=== PATIENT | male | born 1965 | race Caucasian/White ===

== ENCOUNTER 2017-06-29 12:38 | Inpatient (IN) | payer BC ==
[~2017-06-29] VITALS: Ht 170.2 cm; Wt 100.0 kg
[2017-06-29 12:50] VITALS: Ht 170.2 cm; Wt 100.0 kg
[2017-06-29 12:54] VITALS: TEMP 97.8
--- NOTE | 2017-06-29 12:56 | ERA ---
ER Documentation Chief Complaint Date/Time DATE: 06/29/17 TIME: 12:56 Chief Complaint Cough HPI The patient is a 51-year-old male, presenting with persistent cough for 2-1/2 weeks, associated with dizziness. He was seen by his physician 2 days ago and treated with Zithromax with any improvement. He came to the ER because of worsening cough and vomiting and dizziness. He denies fever, chills, neck pain , chest pain with exertion/vomiting/diaphoresis, dominant pain, dysuria. He complains of bloody stool and today. 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 Medications Home Meds Reported Medications Benzonatate* (Tessalon Perle*) 100 Mg Capsule, 100 MG PO Q8H Y for COUGH, CAP 06/29/17 Lisinopril* (Lisinopril*) 10 Mg Tablet, 10 MG PO DAILY, #30 TAB 06/29/17 Atorvastatin Calcium (Atorvastatin Calcium) 10 Mg Tablet, 10 MG PO QHS, #30 TAB 06/29/17 Warfarin Sodium* (Warfarin Sodium*) 4 Mg Tablet, 4 MG PO DAILY, TAB 06/29/17 Albuterol Sulfate* (Ventolin HFA*) 18 Gm Hfa.aer.ad, 2 PUFF INHALATION Q4H Y for WHEEZING AND SOB, #1 INHALER 06/29/17 Citalopram Hydrobromide* (Citalopram Hydrobromide*) 40 Mg Tablet, 40 MG PO DAILY , #30 TAB 06/29/17 Amlodipine Besylate* (Amlodipine Besylate*) 10 Mg Tablet, 10 MG PO DAILY, #30 TAB 06/29/17 Allergies Allergies: Coded Allergies: morphine (Verified Allergy, Severe, 06/29/17) PMhx/Soc Hx Miscellaneous Medical Probl: 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 Very anxious Head: Atraumatic. Eyes: Normal Conjunctiva. ENT: Normal External Ears, Nose and Mouth. Neck: Full range of motion. No meningismus. Resp: Tachypneic, bilateral expiratory wheezes Cardio: Regular tachycardic Abd: Soft, non distended, normal bowel sounds, non tender. Skin: No petechiae or rashes. Back: No midline or flank tenderness. Ext: No cyanosis, or edema. Neur: Awake and alert. No focal deficit Psych: Normal Mood and Affect. Result Diagram: 06/29/17 1315 06/29/17 1315 Results 24 hrs Laboratory Tests Test 06/29/17 13:15 06/29/17 17:20 White Blood Count 11.510^3/ul Red Blood Count 4.1010^6/ul Hemoglobin 12.7g/dl Hematocrit 38.0% Mean Corpuscular Volume 92.7fl Mean Corpuscular Hemoglobin 31.0pg Mean Corpuscular Hemoglobin Concent 33.4g/dl Red Cell Distribution Width 13.3% Platelet Count 37637^3/UL Mean Platelet Volume 9.6fl Neutrophils % 72.8% Lymphocytes % 17.2% Monocytes % 8.2% Eosinophils % 0.5% Basophils % 0.6% Nucleated Red Blood Cells % 0.0/100WBC Neutrophils # 8.410^3/ul Lymphocytes # 2.010^3/ul Monocytes # 0.910^3/ul Eosinophils # 0.110^3/ul Basophils # 0.110^3/ul Nucleated Red Blood Cells # 0.010^3/ul Prothrombin Time 29.1Sec Prothrombin Time Ratio 2.3 INR International Normalized Ratio 2.71 Activated Partial Thromboplast Time 51.6Sec Urine Color YELLOW Urine Clarity CLOUDY Urine pH 5.0 Urine Specific [place] 1.031 Urine Ketones TRACEmg/dL Urine Nitrite NEGATIVEmg/dL Urine Bilirubin NEGATIVEmg/dL Urine Urobilinogen NEGATIVEmg/dL Urine Leukocyte Esterase 2+[place]/ul Urine Microscopic RBC 1/HPF Urine Microscopic WBC 7/HPF Urine Bacteria FEW/HPF Urine Hyaline Casts FEW/HPF Urine Mucus MODERATE/HPF Urine Hemoglobin 2+mg/dL Urine Glucose 1+mg/dL Urine Total Protein 2+mg/dl Sodium Level 140mmol/L Potassium Level 4.4mmol/L Chloride Level 108mmol/L Carbon Dioxide Level 25mmol/L Anion Gap 11 Blood Urea Nitrogen 28mg/dl Creatinine 0.79mg/dl Glucose Level 193mg/dl Lactic Acid Level 2.4mmol/L 1.3mmol/L Calcium Level 8.3mg/dl Total Bilirubin 0.3mg/dl Direct Bilirubin 0.00mg/dl Indirect Bilirubin 0.3mg/dl Aspartate Amino Transf (AST/SGOT) 22IU/L Alanine Aminotransferase (ALT/SGPT) 37IU/L Alkaline Phosphatase 68IU/L Troponin I < 0.012ng/ml 0.040ng/ml Total Protein 6.4g/dl Albumin 3.5g/dl Globulin 2.90g/dl Albumin/Globulin Ratio 1.20 Urine Opiates Screen Positive Urine Barbiturates Negative Urine Amphetamines Screen Negative Urine Benzodiazepines Screen Negative Urine Cocaine Screen Negative Urine Cannabinoids Negative Ethyl Alcohol Level < 10.0mg/dl C-Reactive Protein 1.6mg/dl B-Type Natriuretic Peptide 40PG/ML Thyroid Stimulating Hormone (TSH) 0.145MIU/L Free Thyroxine 1.08ng/dl Current Medications Medications (Trade) Dose Ordered Sig/Vicenta Route PRN Reason Start Time Stop Time Status Last Admin Dose Admin Levalbuterol (Xopenex Neb) 1.25 mg ONCE ONCE N 06/29/17 13:30 06/29/17 13:31 DC 06/29/17 13:38 Ipratropium [place] (Atrovent 0.02% (Neb)) 0.5 mg ONCE ONCE N 06/29/17 13:30 06/29/17 13:31 DC 06/29/17 13:38 Promethazine HCl/ Codeine (Phenergan/ Codeine) 10 ml ONCE ONCE PO 06/29/17 13:30 06/29/17 13:31 DC 06/29/17 14:05 Ondansetron HCl (Zofran Inj) 4 mg ONCE STAT IV 06/29/17 13:14 06/29/17 13:16 DC 06/29/17 13:21 Lorazepam 1 mg 1 mg ONCE ONCE IV 06/29/17 13:30 06/29/17 13:31 DC 06/29/17 13:21 Sodium Chloride 1,000 ml @ 1,000 mls/hr Q1H ONCE IV 06/29/17 14:00 06/29/17 14:06 DC 06/29/17 14:05 Sodium Chloride 3,100 ml @ 3,100 mls/hr BOLUS X1 ONCE IV 06/29/17 14:30 06/29/17 15:29 DC 06/29/17 14:34 Levofloxacin/ Dextrose (Levaquin 750 Mg/ D5W 150 ml (Pmx)) 150 ml @ 100 mls/hr ONCE ONCE IVPB 06/29/17 15:00 06/29/17 16:29 DC 06/29/17 15:02 Ketorolac Tromethamine 30 mg 30 mg ONCE STAT IV 06/29/17 16:25 06/29/17 16:28 DC 06/29/17 16:37 Adenosine (Adenosine) 2 ml @ ud STK-MED ONCE .ROUTE 06/29/17 17:13 06/29/17 17:14 DC IV Flush 10 ml 10 ml STK-MED ONCE .ROUTE 06/29/17 17:28 06/29/17 17:29 DC 06/29/17 17:54 Sodium Chloride (NS) 100 ml @ ud STK-MED ONCE .ROUTE 06/29/17 17:28 06/29/17 17:29 DC 06/29/17 17:54 Iodixanol (Visipaque Locm) 100 ml STK-MED ONCE .ROUTE 06/29/17 17:28 06/29/17 17:29 DC 06/29/17 17:55 Hydromorphone HCl (Dilaudid) 1 mg STK-MED ONCE .ROUTE 06/29/17 17:34 06/29/17 17:35 DC Hydromorphone HCl (Dilaudid) 1 mg ONCE STAT IV 06/29/17 17:35 06/29/17 17:55 DC 06/29/17 18:05 Amlodipine Besylate (Norvasc) 10 mg DAILY PO 06/30/17 09:00 Atorvastatin Calcium (Lipitor) 10 mg QHS PO 06/29/17 21:00 Citalopram Hydrobromide (Celexa) 40 mg DAILY PO 06/30/17 09:00 Lisinopril (Zestril) 10 mg DAILY PO 06/30/17 09:00 Warfarin Sodium (Coumadin) 4 mg DAILY PO 06/30/17 09:00 Adenosine (Adenosine) 6 mg ONCE ONCE IV 06/29/17 18:30 06/29/17 18:31 DC 06/29/17 18:28 Metoprolol Tartrate (Lopressor) 5 mg ONCE ONCE IV 06/29/17 18:30 06/29/17 18:31 DC 06/29/17 18:40 Metoprolol Tartrate (Lopressor) 25 mg BID PO 06/29/17 21:00 IV Flush (NS 3 ml) 3 ml PER PROTOCOL IV 06/29/17 18:30 Ibuprofen (Motrin) 600 mg Q6H PRN PO PAIN LEVEL 1-3 06/29/17 18:30 Oxycodone/ Acetaminophen (Percocet (5/ 325)) 1 tab Q6H PRN PO MODERATE PAIN LEVEL 4-6 06/29/17 18:30 Hydromorphone HCl (Dilaudid) 0.5 mg Q4H PRN IV SEVERE PAIN LEVEL 7-10 06/29/17 18:30 06/29/17 18:41 Miscellaneous Information (* Miscellaneous Pharmacy Order) Discontinue current oral sulfonylur... ONCE ONCE XX 06/29/17 18:30 06/29/17 18:30 DC Diagnostic Test (Pha) (Accu-Chek) 1 ea XX 06/30/17 02:00 Insulin Glargine (Lantus) 8 unit DAILY@08 [place] 06/30/17 08:00 Miscellaneous Information (* Miscellaneous Pharmacy Order) HYPOGLYCEMIA PROTOCOL w... ONCE ONCE XX 06/29/17 18:30 06/29/17 18:30 DC Insulin Aspart (Novolog Insulin Pen) NOVOLOG *MILD* ALGORITHM WITH MEALS BEDTIME SC 06/29/17 21:00 Miscellaneous Information (* Miscellaneous Pharmacy Order) Discontinue all previ... ONCE ONCE XX 06/29/17 18:30 06/29/17 18:30 DC Miscellaneous Information 1 ea NOTE XX 06/29/17 18:30 Glucose (Glutose) 15 gm Q15M PRN PO DECREASED GLUCOSE 06/29/17 18:30 Glucose (Glutose) 22.5 gm Q15M PRN PO DECREASED GLUCOSE 06/29/17 18:30 Dextrose (D50w Syringe) 25 ml Q15M PRN IV DECREASED GLUCOSE 06/29/17 18:30 Dextrose (D50w Syringe) 50 ml Q15M PRN IV DECREASED GLUCOSE 06/29/17 18:30 Glucagon (Glucagen) 1 mg Q15M PRN IM DECREASED GLUCOSE 06/29/17 18:30 Glucose (Glutose) 15 gm Q15M PRN BUCCAL DECREASED GLUCOSE 06/29/17 18:30 Procedures/MDM EKG: Read by emergency physician Rate/Rhythm: Sinus tachycardia 160 beats/min QRS, ST, T-waves: No ST elevation, no T inversion, RWA Impression: Abnormal EKG [place] [id number] Radiology Main Line: [phone] DIAGNOSTIC IMAGING REPORT Patient: TYLER RUSSELL : 1965 Age: 51 Sex: M MR #: [id number] DOS: 06/29/17 1314 Ordering MD: SYDNEY ROBISON MD Location: E/R Room/Bed: PROCEDURE: Chest Radiograph. CLINICAL INDICATION: Sepsis TECHNIQUE: Single frontal chest radiograph. COMPARISON: None available FINDINGS: The cardiomediastinal silhouette is within normal limits. No infiltrate or effusion is seen. The bones are intact. IMPRESSION: 1. Unremarkable chest radiograph. RPTAT: GG .Smooth Bowers MD, Date Time Electronically viewed and signed by .Smooth Bowers MD, on 2016 13:47 .B/ CC: SYDNEY ROBISON MD MEDICAL MAKING DECISION: The patient is a 51-year-old male, presenting with acute severe sepsis, acute cystitis, acute bronchitis, hematochezia, acute anxiety. He was treated with Xopenex 1.25 mg, Atrovent 0.5 mg nebulizer for wheezing, with codeine 10 mL p.o. for persistent dry cough, and Zofran 4 mg IV for nausea, Ativan 1 mg IV for acute anxiety,NS 30 mg IV and Levaquin IV for acute severe sepsis Admit MDM: Patient's infectious symptoms have not stabilized and the patient is at risk of rapid decompensation. The patient will be admitted for careful hydration, antibiotic therapy, and infectious source control. Severe Sepsis criteria: Infectious source: UTI End organ damage indicated by: Lactate > 2.0 mmol/L Sepsis Management: Time of recognition of severe sepsis/septic shock:1500 Within 3 hours of recognition: Blood cultures x 2 before broad-spectrum antibiotics: Yes 30 ml/kg NS bolus completed Initial lactate 2.4 Repeat lactate pending Critical Care: Critical care time 35 minutes excluding billable procedure Emergent fluid management while maintaining close respiratory support. Provision of immediate and broad-spectrum antibiotic therapy. Simultaneous assessment for possible sources in order to direct targeted therapy. Consideration for invasive and chemical support to prevent cardiopulmonary collapse. Septic Shock Assessment: Any lactic acid > 4.0 no Persistent hypotension (SBP < 90 or 40 mmHg drop, MAP < 65) despite 30 mL/kg IV fluid bolusno Departure Diagnosis: Primary Impression: Severe sepsis Additional Impressions: UTI (urinary tract infection) Bronchitis Hematochezia Anxiety Anemia Tachyarrhythmia Condition: Stable Comments I discussed the findings with the patient. I discussed the patient with the on- call hospitalist Dr. Eli at 4:20 PM who was made aware of the lab, the treatment, the patient condition. The patient is admitted to SYDNEY Bee MD Jun 29, 2017 12:56
[2017-06-29] MEDS ORDERED: ONDANSETRON 4 MG INJ IV STA (13:14)
[2017-06-29] MEDS ORDERED: IPRATROPIUM (NEB) 0.5 MG/2.5 ML AMP HHN ONE (13:30)
[2017-06-29] MEDS ORDERED: PROMETHAZINE/CODEINE 5ML CUP PO ONE (13:30)
[2017-06-29] MEDS ORDERED: LEVALBUTEROL (NEB) 1.25 MG/0.5 ML AMP HHN ONE (13:30)
[2017-06-29] MEDS ORDERED: LORAZEPAM 2 MG INJ IV ONE (13:30)
[2017-06-29 13:33] LABS: BASOPHIL # 0.1 10^3/ul (0.0-0.1); BASOPHILS % 0.6 % (0.0-2.0); EOSINOPHILS # 0.1 10^3/ul (0.0-0.5); EOSINOPHILS % 0.5 % (0.0-7.0); HEMOGLOBIN 12.7 g/dl (14.0-18.0); LYMPHOCYTES % 17.2 % (15.0-51.0); MEAN CORPUSCULAR HGB CONC 33.4 g/dl (32.0-37.0); MEAN CORPUSCULAR VOLUME 92.7 fl (82.0-101.0); MEAN PLATELET VOLUME 9.6 fl (7.4-10.4); MONOCYTE # 0.9 10^3/ul (0.3-0.9); MONOCYTES % 8.2 % (0.0-11.0); NEUTROPHIL # 8.4 10^3/ul (1.6-7.5); NEUTROPHILS % 72.8 % (39.0-77.0); PLATELET COUNT 416 10^3/UL (140-415); RED CELL DISTRIBUTION WIDTH 13.3 % (11.5-14.5); WHITE BLOOD COUNT 11.5 10^3/ul (4.8-10.8)
--- NOTE | 2017-06-29 13:47 | RADRPT ---
PROCEDURE: Chest Radiograph. CLINICAL INDICATION: Sepsis TECHNIQUE: Single frontal chest radiograph. COMPARISON: None available FINDINGS: The cardiomediastinal silhouette is within normal limits. No infiltrate or effusion is seen. Th e bones are intact. IMPRESSION: 1. Unremarkable chest radiograph. RPTAT: GG .Smooth Bowers MD, Date Time Electronically viewed and signed by .Smooth Bowers MD, on 06/29/2017 13:47 .B/
[2017-06-29 13:48] LABS: INR 2.71; PROTIME 29.1 Sec (12.2-14.2); PT RATIO 2.3
[2017-06-29 13:49] LABS: PARTIAL THROMBOPLASTIN TIME 51.6 Sec (25.0-35.0)
[2017-06-29] MEDS ORDERED: AMLO-147 PO (13:52)
[2017-06-29] MEDS ORDERED: CITA-104 PO (13:52)
[2017-06-29 13:53] LABS: ALANINE AMINOTRANSFERASE 37 IU/L (13-69); ALBUMIN 3.5 g/dl (3.3-4.9); ALKALINE PHOSPHATASE 68 IU/L (42-121); ANION GAP 11 (8-16); ASPARTATE AMINO TRANSFERASE 22 IU/L (15-46); BILIRUBIN,INDIRECT 0.3 mg/dl (0-1.1); BILIRUBIN,TOTAL 0.3 mg/dl (0.2-1.3); BLOOD UREA NITROGEN 28 mg/dl (7-20); CALCIUM 8.3 mg/dl (8.4-10.2); CARBON DIOXIDE 25 mmol/L (21-31); CHLORIDE 108 mmol/L (97-110); CREATININE 0.79 mg/dl (0.61-1.24); GLUCOSE 193 mg/dl (70-220); POTASSIUM 4.4 mmol/L (3.5-5.1); SODIUM 140 mmol/L (135-144); TOTAL PROTEIN 6.4 g/dl (6.1-8.1)
[2017-06-29] MEDS ORDERED: ATOR10TA65 PO (13:53)
[2017-06-29] MEDS ORDERED: ALBU18HF INHALATION (13:53)
[2017-06-29] MEDS ORDERED: WARF4TAB52 PO (13:53)
[2017-06-29] MEDS ORDERED: BENZ100C70 PO (13:54)
[2017-06-29] MEDS ORDERED: LISI10TA2 PO (13:54)
[2017-06-29] MEDS ORDERED: SOD CHLORIDE 0.9% 1,000 ML IV ONE (14:00)
[2017-06-29 14:08] LABS: BARBITURATES Negative (NEGATIVE); BENZODIAZEPINES Negative (NEGATIVE); CANNABINOIDS Negative (NEGATIVE); COCAINE Negative (NEGATIVE); OPIATES Positive (NEGATIVE); TROPONIN-I < 0.012 ng/ml (0.00-0.12)
[2017-06-29 14:29] LABS: ADD UMIC YES; UR ASCORBIC ACID 40 mg/dL (NEGATIVE); UR BACTERIA FEW /HPF (NONE SEEN); UR BILIRUBIN (Dip) NEGATIVE (NEGATIVE); UR BLOOD (Dip) 2+ mg/dL (NEGATIVE); UR CLARITY CLOUDY (CLEAR); UR COLOR YELLOW (YELLOW); UR GLUCOSE (Dip) 1+ mg/dL (NEGATIVE); UR KETONES (Dip) TRACE mg/dL (NEGATIVE); UR LEUKOCYTE ESTERASE (Dip) 2+ Leu/ul (NEGATIVE); UR MUCUS MODERATE /HPF (NONE SEEN); UR NITRITE (Dip) NEGATIVE (NEGATIVE); UR RBC 1 /HPF (0-5); UR SPECIFIC GRAVITY (Dip) 1.031 (1.003-1.030); UR TOTAL PROTEIN (Dip) 2+ mg/dl (NEGATIVE); UR UROBILINOGEN (Dip) NEGATIVE (NEGATIVE)
[2017-06-29] MEDS ORDERED: SOD CHLORIDE 0.9% 3,100 ML IV ONE (14:30)
[2017-06-29] MEDS ORDERED: LEVOFLOXACIN 750MG/D5W (PMX) 150 ML IVPB ONE (15:00)
[2017-06-29] MEDS ORDERED: KETOROLAC 30 MG INJ IV STA (16:25)
[2017-06-29] MEDS ORDERED: ADENOSINE 2 ML ONE (17:13)
[2017-06-29] MEDS ORDERED: IODIXANOL LOCM 100 ML BTL ONE (17:28)
[2017-06-29] MEDS ORDERED: SOD CHLORIDE 0.9% 100 ML ONE (17:28)
[2017-06-29] MEDS ORDERED: HYDROmorphONE 1 MG/ML SYG ONE (17:34)
[2017-06-29] MEDS ORDERED: HYDROmorphONE 1 MG/ML SYG IV STA (17:35)
--- NOTE | 2017-06-29 18:04 | RADRPT ---
PROCEDURE: CTA Chest with IV contrast. CLINICAL INDICATION: Chest pain and shortness of breath. TECHNIQUE: The study was performed utilizing a multidetector CT scanner. Direct spiral axial secti ons were obtained from the thoracic inlet through the upper abdomen before and after the injection o f 80 cc Isovue 370 intravenous contrast material and reformatted at 1.25 mm. 3D, coronal and sagitta l reformations were obtained. The images were reviewed on a PACS workstation. Automated exposure con trol was utilized. DLP = 779.0 mGy-cm.CTDiVol = 7.0, 7.0, 42.3, 20.0 mGy. One or more of the following post reduction techniques were used: - Automated exposure control. - Adjustment of the mA and/or Kv according to patient's size. - Use of iterative reconstruction technique COMPARISON: No prior studies are available for comparison. FINDINGS: No pulmonary arterial filling defects to indicate pulmonary embolus are identified. Heart size is within normal limits. No hilar or mediastinal lymphadenopathy is identified. The vis ualized portions of the inferior thyroid appear unremarkable. Minimal calcified atherosclerosis is n oted in the arch of the aorta. The thoracic esophagus appears normal. The lungs are clear. The visualized organs of the superior abdomen are unremarkable. Mild to moderate degenerative changes are seen in the spine. The subcutaneous and muscular soft tis sues surrounding the chest are unremarkable. IMPRESSION: No visualized pulmonary embolus. Clear lungs. Degenerative changes in the spine and calcified atherosclerosis in the arch of the aorta. RPTAT: AA .Aaron Robins MD, Date Time Electronically viewed and signed by .Aaron Robins MD, MD on 06/29/2017 18:03 .P/
--- NOTE | 2017-06-29 18:13 | HP ---
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 Found to have profound tachycardia, appears to be A Flutter reverting to SR vs ectopic rhtyhm - Symptoms concenring for recurrence of PE, will perform CT-A to assess. Dissection also a possibility which will be evaluated - Unlikely this is coronary ischemia - Hyperthyroidism is also a possibility, will check TSH/T4 - Perhaps all secondary to arrhythmia, will give cautious beta kelli and consult cardiology for management of possible A Flutter and rhythm strip review - Lactic acidosis appreciated, though no signs of hypoperfusion otherwise, I don 't think this is sepsis, will hold further abx for now. Bacterial pneumonia unlikely - TTE - TB possible, CT will be instructive Hypertension: - Control w home meds and BB Further diagnostic workup and management pending clinical course Problems: HPI/ROS Admit Date/Time Admit Date/Time Hx of Present Illness 51 yo male h/o HTN, Protein S deficiency leading to 2 PEs on coumadin, presenting with 2 weeks of illness. Patient felt completely well until about two weeks ago. Developed nasal congestion then URI symptoms, others aroudn him also sick. Symptoms have progressed. Has developed very bothersome cough wtihout much production, SOB, palpitations, disabling chest pressure which seems constant. Also diarrhea, nausa and vomiting. Has been to a couple EDs for these sypmtosm already, given Z pack and IM abx already, symptoms have worsened. Came here today for evaluation fo same symptoms as not improving. Foudn to be markedly tachycaric and anxious, given ativan for agitation Seen by me, felt w HR in 140s resting, unclear if SVT. Given 6 adenosine w/o change. Still complaiing of chest pressure and SOB at rest. PMH/Family/Social Past Medical History Hypertension Obestiy Pulmonary Embolisms 5 years ago, on lifelong coumadin given protein S defiicency Social History Alcohol Use: none Smoking Status: Never smoker Drug Use: none Exam/Review of Systems Vital Signs Vitals Vital Signs Date Time Temp Pulse Resp B/P Pulse Ox O2 Delivery O2 Flow Rate FiO2 06/29/17 13:39 4.0 06/29/17 13:39 148 20 96 Nasal Cannula 06/29/17 13:08 114/82 06/29/17 12:54 97.8 Exam Exam Appears uncomfortable, but calm, AOx3 Tachy, regular, no m/r/g, no chest wall tenderness, flat neck veins Lungs with perhpas mild rhonchi but generally clear, nonlabored Obese belly, soft nt nd Ext wihtout edema Labs Result Diagram: 06/29/17 1315 06/29/17 1315 MCKENZIE BONILLA MD Jun 29, 2017 18:05
[2017-06-29 18:16] LABS: C-REACTIVE PROTEIN 1.6 mg/dl (0.0-0.9)
[2017-06-29] MEDS ORDERED: GLUCOSE GEL 15 GRAM TUBE PO PRN ×2 (18:30)
[2017-06-29] MEDS ORDERED: GLUCOSE GEL 15 GRAM TUBE BUCCAL PRN (18:30)
[2017-06-29] MEDS ORDERED: IBUPROFEN 600 MG TAB PO PRN (18:30)
[2017-06-29] MEDS ORDERED: GLUCAGON 1 MG INJ IM PRN (18:30)
[2017-06-29] MEDS ORDERED: NACL 0.9% 3 ML SYG IV SCH (18:30)
[2017-06-29] MEDS ORDERED: METOPROLOL 5 MG INJ IV ONE (18:30)
[2017-06-29] MEDS ORDERED: DEXTROSE 50% 50 ML SYRINGE IV PRN ×2 (18:30)
[2017-06-29] MEDS ORDERED: ADENOSINE 6 MG INJ IV ONE (18:30)
[2017-06-29] MEDS: HYDROmorphONE 1 MG/ML SYG IV PRN (18:41)
[2017-06-29] MEDS ORDERED: METOPROLOL 25 MG TAB PO SCH (21:00)
[2017-06-29 22:01] VITALS: PULSE 125
[2017-06-29] MEDS: ATORVASTATIN 10 MG TAB PO SCH (22:11)
[2017-06-29] MEDS: OXYCODONE/ACETAMINOPHEN (5/325) TAB PO PRN (22:12)
[2017-06-29] MEDS: INSULIN ASPART [NOVOLOG] 3 ML PEN SC SCH (22:19)
[2017-06-29 22:40] VITALS: PULSE 157
[2017-06-29 23:46] VITALS: PULSE 151
[2017-06-29 23:55] VITALS: BP 133/83; RESP 20
[2017-06-30] VITALS (25 sets, daily range): BP systolic 98–217; BP diastolic 63–165; PULSE 105–144; RESP 11–29
[2017-06-30] MEDS: HYDROmorphONE 1 MG/ML SYG IV PRN ×5 (00:47→23:41)
[2017-06-30] MEDS: ACCU-CHEK XX SCH (02:00)
[2017-06-30] MEDS ORDERED: NITROGLYCERIN (SL) 0.4 MG TAB SL PRN (03:00)
[2017-06-30] MEDS ORDERED: NITROGLYCERIN (SL) 0.4 MG TAB ONE (03:00)
[2017-06-30] MEDS ORDERED: HYDROmorphONE 1 MG/ML SYG IV ONE (03:13)
[2017-06-30] MEDS ORDERED: DILTIAZEM 25 MG INJ IV ONE (03:30)
[2017-06-30] MEDS ORDERED: LOPERAMIDE 2 MG CAP PO ONE (03:30)
[2017-06-30] MEDS: ONDANSETRON 4 MG INJ IV PRN (03:47)
[2017-06-30 04:05] LABS: CALCIUM 7.9 mg/dl (8.4-10.2); CREATININE 0.98 mg/dl (0.61-1.24); POTASSIUM 3.8 mmol/L (3.5-5.1)
[2017-06-30 04:19] LABS: ABNORMAL IP MESSAGE 1; BASOPHIL # 0.1 10^3/ul (0.0-0.1); BASOPHILS % 0.4 % (0.0-2.0); EOSINOPHILS # 0.1 10^3/ul (0.0-0.5); EOSINOPHILS % 0.4 % (0.0-7.0); HEMATOCRIT 20.3 % (42.0-52.0); LYMPHOCYTES # 3.8 10^3/ul (0.8-2.9); LYMPHOCYTES % 31.7 % (15.0-51.0); MEAN CORPUSCULAR HEMOGLOBIN 30.9 pg (29.0-33.0); MEAN CORPUSCULAR VOLUME 93.5 fl (82.0-101.0); MEAN PLATELET VOLUME 9.8 fl (7.4-10.4); MONOCYTE # 1.2 10^3/ul (0.3-0.9); MONOCYTES % 9.7 % (0.0-11.0); NEUTROPHIL # 6.8 10^3/ul (1.6-7.5); NEUTROPHILS % 56.9 % (39.0-77.0); PLATELET COUNT 312 10^3/UL (140-415); POSITIVE DIFF @See below; RED BLOOD COUNT 2.17 10^6/ul (4.70-6.10); RED CELL DISTRIBUTION WIDTH 13.5 % (11.5-14.5)
[2017-06-30 04:32] LABS: HEMOGLOBIN 6.7 g/dl (14.0-18.0)
[2017-06-30] MEDS ORDERED: PANTOPRAZOLE IV 80 MG in SOD CHLORIDE 0.9% 100 ML IVPB ONE (05:30)
--- NOTE | 2017-06-30 05:31 | EN ---
Date/Time of Note Date/Time of Note DATE: 06/30/17 TIME: 05:23 Event Note Medicine Medicine Event Note Called to the bedside by the nurse for repeated episodes of bright red blood per rectum. Patient diaphoretic and tachycardic. Experiencing SOB when moving from bed to bed side toilet. Patient appears pale. HGB on admission on 06/29 was 12.7 and at 06/30/17 at 3 am it is 6.7. INR 2.7 Vitals: HR: 130 RR: 22 BP: 132/64 General: patient appears pale and diaphoretic Heent: mucous membranes dry CVS: sinus tachycardia, no murmurs lungs: clear to ausculation bilaterally, no rales Rectal exam: deferred, but bed side toilet with bright red blood Neuro: alert and oriented x 3, normal mental status Hgb: 6.7 now from 12.7 yesterday, INR 2.7 a/p: 1. Acute GI bleed: likely lower GI bleed. Stat type and screen, 2 units PRBC, 2 units FFP, nuclear bleeding scan. GI consulted, Dr. Mireles aware. Pending transfer to ICU. Greater than 35 mins of critical care time was spent on the care and management of this patient. MELANIE AHUMADA Jun 30, 2017 05:30
[2017-06-30] MEDS: PANTOPRAZOLE IV 80 MG in SOD CHLORIDE 0.9% 100 ML IV SCH ×3 (05:45→15:45)
[2017-06-30] MEDS ORDERED: EPINEPHrine 0.1 MG/ML SYG ONE (07:00)
[2017-06-30] MEDS ORDERED: SUCCINYLCHOLINE CHLORIDE 100 MG/5 ML SYG IV ONE (07:00)
[2017-06-30] MEDS: INSULIN ASPART [NOVOLOG] 3 ML PEN SC SCH ×4 (07:55→21:00)
[2017-06-30] MEDS: INSULIN GLARGINE [LANtus] 3 ML PEN SC SCH (08:00)
[2017-06-30 08:29] LABS: ANISOCYTOSIS 2+ (0-0); BASOPHILS % (M) 1 % (0-2); ERYTHROBLAST% (NRBC) (M) 1 % (0-0); GIANT THROMBO% (M) 1 % (0-0); MICROCYTOSIS 2+ (0-0); MONOCYTES % (M) 6 % (0-11); PLATELET ESTIMATE NORMAL
[2017-06-30] MEDS ORDERED: HUMAN PROTHROMBIN COMPLX IV STA (08:47)
[2017-06-30] MEDS ORDERED: EVAC CONTAINER IV STA (08:47)
[2017-06-30] MEDS ORDERED: CITALOPRAM 20 MG TAB PO SCH (09:00)
[2017-06-30] MEDS ORDERED: LISINOPRIL 10 MG TAB PO SCH (09:00)
[2017-06-30] MEDS ORDERED: AMLODIPINE 10 MG TAB PO SCH (09:00)
[2017-06-30] MEDS ORDERED: PHYTONADIONE 10 MG in DEXTROSE 5% 50 ML IVPB ONE (10:00)
--- NOTE | 2017-06-30 13:08 | RADRPT ---
Echocardiogram Report Patient Name: TYLER RUSSELL Gender: Male Date: 1965 Study Date: 30-Jun-2017 Manager Printing: [facility] Location: 512-A Ref. Physician: MCKENZIE BONILLA Quality: Adequate Procedures: Transthoracic echocardiogram with complete 2D, M-Mode, and doppler examination. Indications: Arrythmia. 2D/M Mode Doppler Measurement Value Normal Ranges Measurement Value Normal Ranges LVIDd 2D 4.5 3.5 - 5.6 cm AV Peak Mark 1.6 m/sec LVIDs 2D 2.4 2.1 - 4.1 cm AV Peak PG 10.0 mmHg FS 2D 46.7 % LVOT Peak Mark 1.5 m/sec LVPWd 2D 1.3 0.6 - 1.1 cm LVOT Peak PG 8.0 mmHg IVSd 2D 1.3 0.6 - 1.1 cm MV E Peak Mark 1.1 m/sec IVS/LVPW 2D 1.0 MV Decel Time 81 msec AoR Diam 2D 2.8 2.0 - 3.7 cm LA/Ao 2D 1 0 - 1 EDV 2D 92.3 cm3 ESV 2D 14.0 cm3 LA Dimen 2D 3.7 2.3 - 4.0 cm Findings Left Ventricle: Hyperdynamic left ventricular systolic function. Normal left ventricular cavity size. Mild concentric left ventricular hypertrophy. Ejection fraction is visually estimated at 70 %. Abnormal Diastolic Function. Right Ventricle: Normal right ventricular size. Normal right ventricular systolic function. Left Atrium: The left atrium is normal in size. Right Atrium: The right atrium is normal in size. Mitral Valve: Mild mitral leaflet calcification. Mild mitral annular calcification. Trace mitral regurgitation. Aortic Valve: Normal appearance of the aortic valve. No significant aortic stenosis or insufficiency. Tricuspid Valve: Normal appearance of the tricuspid valve. Unable to obtain RVSP due to minimal presence of tricuspid regurgitation. There is trace tricuspid regurgitation. Pulmonic Valve: Pulmonic valve not well visualized. There is trace pulmonic regurgitation. Pericardium: Normal pericardium with no significant pericardial effusion. Aorta: Normal aortic root. IVC: Normal size and normal respiratory collapse consistent with normal right atrial pressure. Conclusions 1.The left ventricle is normal in size with hyperdynamic systolic function. 2.Estimated left ventricular ejection fraction of >70%. 3.Mild concentric left ventricular hypertrophy. Electronically Signed By: Blake Betts 30-Jun-2017 13:07:46 -0700 Patient Name: TYLER RUSSELL Study Date: 30-Jun-2017 [id number]
--- NOTE | 2017-06-30 13:41 | CONS ---
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 - current chest CTA negative Recommendations: -echocardiogram showed hyperdynamic left ventricle with ejection fraction >70% -FFP, vitamin K, pRBC transfusions -hold antihypertensive medications, resume as needed when gastrointestinal bleeding stabilized -resume on atorvastatin when tolerating oral medications Problems: Consultation Date/Type/Reason Admit Date/Time Type of Consultation: Cardiology Reason for Consultation tachycardia Hx of Present Illness The patient is a 51 year-old male who presented with numerous complaints including nausea, vomiting, chest pain, lightheadedness, and diaphoresis. Two weeks ago, he developed respiratory congestion and cough. He was treated as an outpatient with antibiotics for a presumed upper respiratory infection without improvement of his symptoms. In the hospital, he is noted to have a low grade fever to 99.8 F, tachycardic, elevated WBC of 11.5, and elevated lactic acid of 2.4. Urinalysis was abnormal, suggestive of a urinary tract infection. On the day of presentation, he developed hematochezia and has continued to have several episodes of hematochezia while in the hospital. His hemoglobin was 12.7 on presentation, but dropped to 6.7 today. He is on chronic warfarin therapy for protein S deficiency and two prior episodes of pulmonary embolisms. His INR was 2.7 on presentation. With regards to his chest pain, he describes intermittent nonexertional chest pressure that can last for several hours. He denies a prior history of heart disease. EKGs showed sinus tachycardia without acute ischemic changes. Troponins have been negative x 3. Echocardiogram showed a hyperdynamic left ventricular with an ejection fraction of >70%. Chest CTA showed no evidence of pulmonary embolism and clear lungs. 14 point review of systems negative other than per HPI. Past Medical History Hypertension Dyslipidemia Protein S deficiency History of pulmonary embolism x 2 Past Surgical History Past Surgical Hx: no surgical history Family History Significant Family History: diabetes Social History Alcohol Use: none Smoking Status: Former smoker Drug Use: none Exam/Review of Systems Vital Signs Vitals Vital Signs Date Time Temp Pulse Resp B/P Pulse Ox O2 Delivery O2 Flow Rate FiO2 06/30/17 08:17 121 06/30/17 07:51 98.4 16 109/66 96 06/29/17 23:00 Nasal Cannula 2.0 Intake and Output 06/29/17 06/29/17 06/30/17 15:00 23:00 07:00 Intake Total 1800 ml Output Total 5500 ml Balance -3700 ml Exam Constitutional: alert, obese Psych: nl mood/affect, no complaints Head: atraumatic, normocephalic Eyes: nl conjunctiva, nl lids ENMT: nl external ears & nose, nl nasal mucosa & septum Neck: non-tender, supple, No jvd Respiratory: clear to auscultation, No wheezing Cardiovascular: No regular rate and rhythm (tachycardic) Gastrointestinal: soft, tender (mild diffuse) Musculoskeletal: nl extremities to inspection Extremities: No clubbing, No cyanosis, No edema Neurological: nl mental status, nl speech Results Result Diagram: 06/30/17 0333 06/30/17 0333 Results 24 hrs Laboratory Tests Test 06/29/17 17:20 06/29/17 20:28 06/29/17 22:17 06/29/17 22:20 Lactic Acid Level 1.3 1.0 Troponin I 0.040 C-Reactive Protein 1.6 H B-Type Natriuretic Peptide 40 Thyroid Stimulating Hormone (TSH) 0.145 L Free Thyroxine 1.08 Stool Occult Blood POSITIVE Bedside Glucose 146 Test 06/30/17 02:52 06/30/17 03:33 06/30/17 09:44 06/30/17 13:19 Bedside Glucose 184 171 162 White Blood Count 12.0 H Red Blood Count 2.17 #L Hemoglobin 6.7 #*L Hematocrit 20.3 #L Mean Corpuscular Volume 93.5 Mean Corpuscular Hemoglobin 30.9 Mean Corpuscular Hemoglobin Concent 33.0 Red Cell Distribution Width 13.5 Platelet Count 312 # Mean Platelet Volume 9.8 Neutrophils % 56.9 Segmented Neutrophils % (Manual) 63 Lymphocytes % 31.7 Lymphocytes % (Manual) 30 Monocytes % 9.7 Monocytes % (Manual) 6 Eosinophils % 0.4 Basophils % 0.4 Basophils % (Manual) 1 Nucleated Red Blood Cells % 1 H Neutrophils # 6.8 Absolute Lymphocytes (Manual) 3.6 H Lymphocytes # 3.8 H Monocytes # 1.2 H Absolute Monocytes (Manual) 0.7 Eosinophils # 0.1 Basophils # 0.1 Basophils # (Manual) 0.1 H Nucleated Red Blood Cells # 0.0 Platelet Estimate NORMAL Giant Platelets 1 H Anisocytosis 2+ Microcytosis 2+ Sodium Level 140 Potassium Level 3.8 Chloride Level 110 Carbon Dioxide Level 25 Anion Gap 9 Blood Urea Nitrogen 35 H Creatinine 0.98 Glucose Level 186 Hemoglobin A1c 5.8 Calcium Level 7.9 L Magnesium Level 1.7 Troponin I 0.015 Medications Medications Current Medications Atorvastatin Calcium (Lipitor) 10 mg QHS PO Last administered on 06/29/17 22: 11; Admin Dose 10 MG; Start 06/29/17 at 21:00 Oxycodone/ Acetaminophen (Percocet (5/ 325)) 1 tab Q6H PRN PO MODERATE PAIN LEVEL 4-6 Last administered on 06/29/17 22:12; Admin Dose 1 TAB; Start at 18:30 Hydromorphone HCl (Dilaudid) 0.5 mg Q4H PRN IV SEVERE PAIN LEVEL 7-10 Last administered on 06/30/17 12:42; Admin Dose 0.5 MG; Start 06/29/17 at 18:30 Diagnostic Test (Pha) (Accu-Chek) 1 ea 02 XX Last administered on 06/30/17 02: 00; Admin Dose 1 EA; Start 06/30/17 at 02:00 Insulin Glargine (Lantus) 8 unit DAILY@08 SC ; Start 06/30/17 at 08:00 Miscellaneous Information 1 ea NOTE XX ; Start 06/29/17 at 18:30 Glucose (Glutose) 15 gm Q15M PRN PO DECREASED GLUCOSE; Start 06/29/17 at 18:30 Glucose (Glutose) 22.5 gm Q15M PRN PO DECREASED GLUCOSE; Start 06/29/17 at 18: 30 Dextrose (D50w Syringe) 25 ml Q15M PRN IV DECREASED GLUCOSE; Start 06/29/17 at 18:30 Dextrose (D50w Syringe) 50 ml Q15M PRN IV DECREASED GLUCOSE; Start 06/29/17 at 18:30 Glucagon (Glucagen) 1 mg Q15M PRN IM DECREASED GLUCOSE; Start 06/29/17 at 18:30 Glucose (Glutose) 15 gm Q15M PRN BUCCAL DECREASED GLUCOSE; Start 06/29/17 at 18 :30 Nitroglycerin (Nitroglycerin (Sl Tab) 0.4 Mg) 1 tab Q5M PRN SL ANGINA; Start at 03:00 Ondansetron HCl 4 mg 4 mg Q6H PRN IV NAUSEA AND/OR VOMITING Last administered on 06/30/17 03:47; Admin Dose 4 MG; Start 06/30/17 at 04:00 Pantoprazole 80 mg/Sodium Chloride 100 ml @ 10 mls/hr Q10H IV Last administered on 06/30/17 13:08; Admin Dose 10 MLS/HR; Start 06/30/17 at 05:45 Phytonadione/ Dextrose (Vitamin K/D5W) 51 ml @ 102 mls/hr ONCE IVPB ; Start at 14:00; Stop 06/30/17 at 14:29 MARVA CORRAL MD Jun 30, 2017 13:36
[2017-06-30] MEDS ORDERED: LORAZEPAM 2 MG INJ IV PRN (14:00)
[2017-06-30] MEDS ORDERED: PHYTONADIONE 10 MG in DEXTROSE 5% 50 ML IVPB SCH (14:00)
[2017-06-30 14:29] LABS: ABNORMAL IP MESSAGE 1; BASOPHILS % 0.1 % (0.0-2.0); EOSINOPHILS % 0.1 % (0.0-7.0); HEMATOCRIT 14.7 % (42.0-52.0); LYMPHOCYTES # 2.7 10^3/ul (0.8-2.9); LYMPHOCYTES % 19.6 % (15.0-51.0); MEAN CORPUSCULAR HEMOGLOBIN 30.7 pg (29.0-33.0); MEAN CORPUSCULAR HGB CONC 34.7 g/dl (32.0-37.0); MEAN CORPUSCULAR VOLUME 88.6 fl (82.0-101.0); MEAN PLATELET VOLUME 9.6 fl (7.4-10.4); MONOCYTE # 1.3 10^3/ul (0.3-0.9); MONOCYTES % 9.3 % (0.0-11.0); NEUTROPHIL # 9.6 10^3/ul (1.6-7.5); NEUTROPHILS % 69.6 % (39.0-77.0); PLATELET COUNT 224 10^3/UL (140-415); POSITIVE DIFF @See below; RED BLOOD COUNT 1.66 10^6/ul (4.70-6.10); RED CELL DISTRIBUTION WIDTH 14.2 % (11.5-14.5); WHITE BLOOD COUNT 13.8 10^3/ul (4.8-10.8)
[2017-06-30 14:44] LABS: INR 0.99; PROTIME 13.1 Sec (12.2-14.2)
[2017-06-30 14:45] LABS: CALCIUM 7.9 mg/dl (8.4-10.2); CREATININE 0.78 mg/dl (0.61-1.24); POTASSIUM 3.7 mmol/L (3.5-5.1)
[2017-06-30] MEDS ORDERED: SOD CHLORIDE 0.9% 250 ML IV* ONE (14:53)
[2017-06-30] MEDS: SUCRALFATE 1 GM TAB PO SCH ×3 (15:00→21:00)
[2017-06-30 15:07] LABS: HEMOGLOBIN 5.1 g/dl (14.0-18.0)
--- NOTE | 2017-06-30 15:23 | PN ---
Date/Time of Note Date/Time of Note DATE: 06/30/17 TIME: 15:10 Assessment/Plan VTE Prophylaxis VTE Prophylaxis Intervention: contraindicated Lines/Catheters IV Catheter Type (from Nrsg): Peripheral IV Urinary Cath still in place: No Assessment/Plan Chief Complaint/Hosp Course 51 yo male wtih ho obestiy, hypertension, PEs from Protein s deficiency on lifelong coumadin presenting with 2 weeks of SOB, chest pressure, nasal congesion, cough and diarrrhea, not improving wiht outpatient abx. On the floor with episode of massive hematochezia and hematemesis with Hgb 12 -> 5, tachycardic but HD stable. Coumadin reversed, pending EGD Massive GI bleed and acute blood loss anemia, likely 2/2 PUD: - PPI drip - Transfuse > 7.5 for active massive bleed - Support hemodynamics - Coumadin reversed w KCentra and FFP - EGD pending Hypertension: - Hold home meds while in acute blood loss anemia Further diagnostic workup and management pending clinical course CC time 60 minutes Problems: Subjective 24 Hr Interval Summary Free Text/Dictation Patient developed massive hematochezia and hematemesis overnight, INR reversed w Kcentra and FFP, transfused PRBCs and given IVF Complained of dizziness when standing Still having chest/epigastric pain and tightness TTE normal Remains tachycardic, strips reviewed by Dr Betts and felt to all be SR Exam/Review of Systems Vital Signs Vitals Vital Signs Date Time Temp Pulse Resp B/P Pulse Ox O2 Delivery O2 Flow Rate FiO2 06/30/17 13:30 126 12 139/77 100 Room Air 06/30/17 13:00 98.8 06/29/17 23:00 2.0 Intake and Output 06/29/17 06/29/17 06/30/17 15:00 23:00 07:00 Intake Total 1800 ml Output Total 5500 ml Balance -3700 ml Exam Obese, somewhat uncomfortable appearing Tachy, regular Clear lungs Obese belly, minimal tenderness in epigastrium No edema Results Result Diagram: 06/30/17 1340 06/30/17 1340 Results 24 hrs Laboratory Tests Test 06/29/17 17:20 06/29/17 20:28 06/29/17 22:17 06/29/17 22:20 Lactic Acid Level 1.3 1.0 Troponin I 0.040 C-Reactive Protein 1.6 H B-Type Natriuretic Peptide 40 Thyroid Stimulating Hormone (TSH) 0.145 L Free Thyroxine 1.08 Stool Occult Blood POSITIVE Bedside Glucose 146 Test 06/30/17 02:52 06/30/17 03:33 06/30/17 09:44 06/30/17 13:19 Bedside Glucose 184 171 162 White Blood Count 12.0 H Red Blood Count 2.17 #L Hemoglobin 6.7 #*L Hematocrit 20.3 #L Mean Corpuscular Volume 93.5 Mean Corpuscular Hemoglobin 30.9 Mean Corpuscular Hemoglobin Concent 33.0 Red Cell Distribution Width 13.5 Platelet Count 312 # Mean Platelet Volume 9.8 Neutrophils % 56.9 Segmented Neutrophils % (Manual) 63 Lymphocytes % 31.7 Lymphocytes % (Manual) 30 Monocytes % 9.7 Monocytes % (Manual) 6 Eosinophils % 0.4 Basophils % 0.4 Basophils % (Manual) 1 Nucleated Red Blood Cells % 1 H Neutrophils # 6.8 Absolute Lymphocytes (Manual) 3.6 H Lymphocytes # 3.8 H Monocytes # 1.2 H Absolute Monocytes (Manual) 0.7 Eosinophils # 0.1 Basophils # 0.1 Basophils # (Manual) 0.1 H Nucleated Red Blood Cells # 0.0 Platelet Estimate NORMAL Giant Platelets 1 H Anisocytosis 2+ Microcytosis 2+ Sodium Level 140 Potassium Level 3.8 Chloride Level 110 Carbon Dioxide Level 25 Anion Gap 9 Blood Urea Nitrogen 35 H Creatinine 0.98 Glucose Level 186 Hemoglobin A1c 5.8 Calcium Level 7.9 L Magnesium Level 1.7 Troponin I 0.015 Test 06/30/17 13:40 White Blood Count 13.8 H Red Blood Count 1.66 #L Hemoglobin 5.1 #*L Hematocrit 14.7 #L Mean Corpuscular Volume 88.6 Mean Corpuscular Hemoglobin 30.7 Mean Corpuscular Hemoglobin Concent 34.7 Red Cell Distribution Width 14.2 Platelet Count 224 # Mean Platelet Volume 9.6 Neutrophils % 69.6 Lymphocytes % 19.6 Monocytes % 9.3 Eosinophils % 0.1 Basophils % 0.1 Nucleated Red Blood Cells % 0.0 Neutrophils # 9.6 H Lymphocytes # 2.7 Monocytes # 1.3 H Eosinophils # 0.0 Basophils # 0.0 Nucleated Red Blood Cells # 0.0 Prothrombin Time Pending Prothrombin Time Ratio 1.0 INR International Normalized Ratio 0.99 Sodium Level 135 Potassium Level 3.7 Chloride Level 105 Carbon Dioxide Level 27 Anion Gap 7 L Blood Urea Nitrogen 36 H Creatinine 0.78 Glucose Level 140 # Calcium Level 7.9 L Medications Medications Current Medications Atorvastatin Calcium (Lipitor) 10 mg QHS PO Last administered on 06/29/17 22: 11; Admin Dose 10 MG; Start 06/29/17 at 21:00 Oxycodone/ Acetaminophen (Percocet (5/ 325)) 1 tab Q6H PRN PO MODERATE PAIN LEVEL 4-6 Last administered on 06/29/17 22:12; Admin Dose 1 TAB; Start at 18:30 Hydromorphone HCl (Dilaudid) 0.5 mg Q4H PRN IV SEVERE PAIN LEVEL 7-10 Last administered on 06/30/17 12:42; Admin Dose 0.5 MG; Start 06/29/17 at 18:30 Diagnostic Test (Pha) (Accu-Chek) 1 ea 02 XX Last administered on 06/30/17 02: 00; Admin Dose 1 EA; Start 06/30/17 at 02:00 Insulin Glargine (Lantus) 8 unit DAILY@08 SC ; Start 06/30/17 at 08:00 Miscellaneous Information 1 ea NOTE XX ; Start 06/29/17 at 18:30 Glucose (Glutose) 15 gm Q15M PRN PO DECREASED GLUCOSE; Start 06/29/17 at 18:30 Glucose (Glutose) 22.5 gm Q15M PRN PO DECREASED GLUCOSE; Start 06/29/17 at 18: 30 Dextrose (D50w Syringe) 25 ml Q15M PRN IV DECREASED GLUCOSE; Start 06/29/17 at 18:30 Dextrose (D50w Syringe) 50 ml Q15M PRN IV DECREASED GLUCOSE; Start 06/29/17 at 18:30 Glucagon (Glucagen) 1 mg Q15M PRN IM DECREASED GLUCOSE; Start 06/29/17 at 18:30 Glucose (Glutose) 15 gm Q15M PRN BUCCAL DECREASED GLUCOSE; Start 06/29/17 at 18 :30 Ondansetron HCl 4 mg 4 mg Q6H PRN IV NAUSEA AND/OR VOMITING Last administered on 06/30/17 03:47; Admin Dose 4 MG; Start 06/30/17 at 04:00 Pantoprazole/ Sodium Chloride (Protonix Iv/NS) 100 ml @ 10 mls/hr Q10H IV Last administered on 06/30/17 13:08; Admin Dose 10 MLS/HR; Start 06/30/17 at 05 :45 Lorazepam (Ativan) 1 mg Q4H PRN IV anxiety Last administered on 06/30/17 13:49 ; Admin Dose 1 MG; Start 06/30/17 at 14:00 Sucralfate (Carafate) 1 gm QID PO ; Start 06/30/17 at 15:00 MCKENZIE BONILLA MD Jun 30, 2017 15:21
[2017-06-30] MEDS ORDERED: WARFARIN 2 MG TAB PO SCH (17:00)
[2017-06-30] MEDS ORDERED: ONDANSETRON 4 MG INJ IV PRN (17:00)
[2017-06-30] MEDS ORDERED: LIDOCAINE 2% (SDV) 5 ML INJ ONE (17:01)
[2017-06-30] MEDS ORDERED: ETOMIDATE 20 MG INJ ONE (17:02)
[2017-06-30] MEDS ORDERED: PHENYLephrine (100 MCG/ML) 5ML SYG ONE (17:02)
[2017-06-30] MEDS ORDERED: PROPOFOL 20 ML ONE (17:02)
--- NOTE | 2017-06-30 17:04 | CONS ---
Date/Time of Note Date/Time of Note DATE: 06/30/17 TIME: 17:04 Consultation Date/Type/Reason Admit Date/Time Psychological: nl mood/affect, no complaints Past Surgical History Past Surgical Hx: no surgical history Social History Alcohol Use: none Smoking Status: Former smoker Drug Use: none Exam/Review of Systems Vital Signs Vitals Vital Signs Date Time Temp Pulse Resp B/P Pulse Ox O2 Delivery O2 Flow Rate FiO2 06/30/17 16:50 127 18 167/98 100 Nasal Cannula 2.0 06/30/17 13:00 98.8 Intake and Output 06/29/17 06/29/17 06/30/17 14:59 22:59 06:59 Intake Total 1800 ml Output Total 5500 ml Balance -3700 ml Results Result Diagram: 06/30/17 1340 06/30/17 1340 Results 24 hrs Laboratory Tests Test 06/29/17 17:20 06/29/17 20:28 06/29/17 22:17 06/29/17 22:20 Lactic Acid Level 1.3 1.0 Troponin I 0.040 C-Reactive Protein 1.6 H B-Type Natriuretic Peptide 40 Thyroid Stimulating Hormone (TSH) 0.145 L Free Thyroxine 1.08 Stool Occult Blood POSITIVE Bedside Glucose 146 Test 06/30/17 02:52 06/30/17 03:33 06/30/17 09:44 06/30/17 13:19 Bedside Glucose 184 171 162 White Blood Count 12.0 H Red Blood Count 2.17 #L Hemoglobin 6.7 #*L Hematocrit 20.3 #L Mean Corpuscular Volume 93.5 Mean Corpuscular Hemoglobin 30.9 Mean Corpuscular Hemoglobin Concent 33.0 Red Cell Distribution Width 13.5 Platelet Count 312 # Mean Platelet Volume 9.8 Neutrophils % 56.9 Segmented Neutrophils % (Manual) 63 Lymphocytes % 31.7 Lymphocytes % (Manual) 30 Monocytes % 9.7 Monocytes % (Manual) 6 Eosinophils % 0.4 Basophils % 0.4 Basophils % (Manual) 1 Nucleated Red Blood Cells % 1 H Neutrophils # 6.8 Absolute Lymphocytes (Manual) 3.6 H Lymphocytes # 3.8 H Monocytes # 1.2 H Absolute Monocytes (Manual) 0.7 Eosinophils # 0.1 Basophils # 0.1 Basophils # (Manual) 0.1 H Nucleated Red Blood Cells # 0.0 Platelet Estimate NORMAL Giant Platelets 1 H Anisocytosis 2+ Microcytosis 2+ Sodium Level 140 Potassium Level 3.8 Chloride Level 110 Carbon Dioxide Level 25 Anion Gap 9 Blood Urea Nitrogen 35 H Creatinine 0.98 Glucose Level 186 Hemoglobin A1c 5.8 Calcium Level 7.9 L Magnesium Level 1.7 Troponin I 0.015 Test 06/30/17 13:40 White Blood Count 13.8 H Red Blood Count 1.66 #L Hemoglobin 5.1 #*L Hematocrit 14.7 #L Mean Corpuscular Volume 88.6 Mean Corpuscular Hemoglobin 30.7 Mean Corpuscular Hemoglobin Concent 34.7 Red Cell Distribution Width 14.2 Platelet Count 224 # Mean Platelet Volume 9.6 Neutrophils % 69.6 Lymphocytes % 19.6 Monocytes % 9.3 Eosinophils % 0.1 Basophils % 0.1 Nucleated Red Blood Cells % 0.0 Neutrophils # 9.6 H Lymphocytes # 2.7 Monocytes # 1.3 H Eosinophils # 0.0 Basophils # 0.0 Nucleated Red Blood Cells # 0.0 Prothrombin Time 13.1 # Prothrombin Time Ratio 1.0 INR International Normalized Ratio 0.99 Sodium Level 135 Potassium Level 3.7 Chloride Level 105 Carbon Dioxide Level 27 Anion Gap 7 L Blood Urea Nitrogen 36 H Creatinine 0.78 Glucose Level 140 # Calcium Level 7.9 L Medications Medications Current Medications Atorvastatin Calcium (Lipitor) 10 mg QHS PO Last administered on 06/29/17 22: 11; Admin Dose 10 MG; Start 06/29/17 at 21:00 Oxycodone/ Acetaminophen (Percocet (5/ 325)) 1 tab Q6H PRN PO MODERATE PAIN LEVEL 4-6 Last administered on 06/29/17 22:12; Admin Dose 1 TAB; Start at 18:30 Hydromorphone HCl (Dilaudid) 0.5 mg Q4H PRN IV SEVERE PAIN LEVEL 7-10 Last administered on 06/30/17 12:42; Admin Dose 0.5 MG; Start 06/29/17 at 18:30 Diagnostic Test (Pha) (Accu-Chek) 1 ea 02 XX Last administered on 06/30/17 02: 00; Admin Dose 1 EA; Start 06/30/17 at 02:00 Insulin Glargine (Lantus) 8 unit DAILY@08 SC ; Start 06/30/17 at 08:00 Miscellaneous Information 1 ea NOTE XX ; Start 06/29/17 at 18:30 Glucose (Glutose) 15 gm Q15M PRN PO DECREASED GLUCOSE; Start 06/29/17 at 18:30 Glucose (Glutose) 22.5 gm Q15M PRN PO DECREASED GLUCOSE; Start 06/29/17 at 18: 30 Dextrose (D50w Syringe) 25 ml Q15M PRN IV DECREASED GLUCOSE; Start 06/29/17 at 18:30 Dextrose (D50w Syringe) 50 ml Q15M PRN IV DECREASED GLUCOSE; Start 06/29/17 at 18:30 Glucagon (Glucagen) 1 mg Q15M PRN IM DECREASED GLUCOSE; Start 06/29/17 at 18:30 Glucose (Glutose) 15 gm Q15M PRN BUCCAL DECREASED GLUCOSE; Start 06/29/17 at 18 :30 Ondansetron HCl 4 mg 4 mg Q6H PRN IV NAUSEA AND/OR VOMITING Last administered on 06/30/17 03:47; Admin Dose 4 MG; Start 06/30/17 at 04:00 Pantoprazole/ Sodium Chloride (Protonix Iv/NS) 100 ml @ 10 mls/hr Q10H IV Last administered on 06/30/17 15:45; Admin Dose 10 MLS/HR; Start 06/30/17 at 05 :45 Lorazepam (Ativan) 1 mg Q4H PRN IV anxiety Last administered on 06/30/17 13:49 ; Admin Dose 1 MG; Start 06/30/17 at 14:00 Sucralfate (Carafate) 1 gm QID PO ; Start 06/30/17 at 15:00 PRITI BROWN MD Jun 30, 2017 17:04
[2017-06-30] MEDS ORDERED: PROPOFOL 100 ML ONE (17:49)
[2017-06-30] MEDS: PROPOFOL 100 ML IV SCH ×2 (18:00→18:14)
--- NOTE | 2017-06-30 18:05 | QN ---
Documentation Comment I was called out of the emergency department to room 119 for a CODE BLUE event. The patient was being bagged by anesthesia and pulses had returned by the time I arrived. I immediately took over as the CODE BLUE leader and ran the code. Please see the code sheet for full details. The patient received bagging by anesthesia. The final results of the CODE BLUE was return of spontaneous circulation. HPI: Please note the history and physical exam is limited as the patient is being bagged at this time Physical exam: The patient is being bagged by respiratory therapy. There is no movement. GCS is 3. The patient was intubated with the Glidescope by anesthesia who is currently at the bedside. TIANA VEGA MD Jun 30, 2017 18:05
--- NOTE | 2017-06-30 18:06 | OPPN ---
Date/Time of Note Date/Time of Note DATE: 06/30/17 TIME: 17:59 Proc Note GI Procedure Date 06/30/17 Pre-procedure Diagnosis * Bleeding Post-procedure Diagnosis Assessment: * Grade I/IV esophageal varices with no stigmata of recent bleeding * Moderate distal esophagitis. No evidence of active or recent bleeding * Moderate gastritis. No evidence of active or recent bleeding * Normal duodenum and second portion of the duodenum * Per sedation respiratory insufficiency, post intubation Plan: * Continue Protonix drip * Monitor H&H, transfuse as necessary * If evidence of further bleeding will need to consider angiography as bleeding scan suggest small bowel source Surgeon see signature line Senior Program Planner none Anesthesia Type: MAC Anesthesiologist: OBI BENAVIDES MD Tourniquet Time none EBL none Transfusion required none Grafts/Implants none Tubes/Drains none Complication(s) Respiratory insufficiency post procedure sedation requiring endotracheal intubation by anesthesiologist. Patient's vital signs remained stable throughout the procedure in the immediate recovery. At this point the patient is intubated and sedated. Patient's relatives were informed by phone (daughter ) and in person "girlfriend" Pt Condition post procedure: critical Disposition: other (ICU) Procedure Description After informed consent, with the patient/relatives understanding the procedure, its indications, potential risks and complications, including but not limited to : allergic reaction, bleeding, perforation or infection, and after all pertinent questions were answered to the patients satisfaction, the patient/ relatives signed witnessed informed consent. Following this, premedication was administered slowly IV push under careful cardiovascular and respiratory monitoring with pulse oximetry, automatic blood pressure, and quality assurance monitor body. Once the sedative effect was achieved the patient was place in the left lateral decubitus, the panendoscope was introduced and advanced under visual control. Careful examination of the upper gastrointestinal tract, both on insertion as well as withdrawal of the instrument disclosing the following findings: ESOPHAGUS: the mucosa of the entire esophagus was carefully examined and showed the following findings: There are grade I/IV esophageal varices. No evidence of recent bleeding is present. There is also erythema and edema of the mucosa in the distal esophagus. No evidence of active or recent bleeding. Otherwise the mucosa appears within normal limits. There is no evidence of neoplasm, or stricture. No Hiatal Hernia identified. STOMACH: Upon entrance to the stomach air was insufflated, the gastric greenwood distended normally. The mucosa of the fundus, body and antrum of the stomach was carefully examined both head-on and on retroflexion, and showed the following findings: There is moderate erythema of the mucosa. No activation bleeding is present. No potential bleeding lesions identified. Otherwise the mucosa appears within normal limits with no abnormalities. There is no evidence of ulcers or neoplasm. PYLORUS: The pylorus was carefully examined and showed the following findings: the pylorus appears patent and within normal limits, with no evidence of gastric outlet obstruction. DUODENUM: The duodenal mucosa was carefully examined in the duodenal bulb as well as the second portion of the duodenum and showed the following findings: There are no bleeding or potential bleeding lesions to the second portion of the duodenum. The mucosa appears unremarkable with no evidence of duodenitis, ulcer or neoplasm. Upon termination of the procedure the patient exhibited desaturation, he received respiratory support by anesthesiologist but after a period of time of inadequate response with significant obstruction decision was made to intubate the patient which was performed without difficulty. During the entire procedure patient's vital signs were remained adequate. Patient's daughter (in [place]) was informed of the situation over the phone. Copies To: CC: PRITI BROWN MD, MORDO MD Jun 30, 2017 18:06
[2017-06-30 18:34] LABS: HEMATOCRIT 22.9 % (42.0-52.0); HEMOGLOBIN 8.1 g/dl (14.0-18.0)
--- NOTE | 2017-06-30 18:50 | RADRPT ---
PROCEDURE: Chest. CLINICAL INDICATION: Chest pain. TECHNIQUE: Single frontal view of the chest was obtained. COMPARISON: 06/29/2017. FINDINGS: There is an endotracheal tube 3 cm above the kaela. The cardiac silhouette is enlarged. The aortic arch is unremarkable. There are bilateral perihilar infiltrates. There is mild left basilar atelec tasis/infiltrate. There is no vascular congestion or pleural effusion. There is no pneumothorax. Th ere is gaseous distension of the stomach. IMPRESSION: Endotracheal tube in place. Bilateral perihilar infiltrates. Mild left basilar atelectasis/infiltrate. Gaseous distension of the stomach. .Leonardo Mabry MD, Date Time Electronically viewed and signed by .Leonardo Mabry MD, MD on 06/30/2017 18:49 .T/
[2017-06-30] MEDS ORDERED: NORepinephrine 8MG/250 ML (PMX 250 ML IV SCH (19:30)
[2017-06-30 20:59] LABS: AADO2 Arterial 20.6 mmHg (7.0-24.0); Allen Test ACCEPTAB; Arterial Base Excess 0.4 mmol/L (-3.0-3); Arterial COHb 0.2 % (0.0-3.0); Arterial Fraction of Oxyhgb 95.7 % (93.0-99.0); Arterial HCO3 23.8 mmol/L (22.0-26.0); Arterial MetHb 0.3 % (0.0-1.5); MODE ROOM AIR
[2017-06-30] MEDS ORDERED: morphine 4 MG/ML VIAL IV ONE (21:00)
[2017-06-30] MEDS ORDERED: DIPHENHYDRAMINE 50 MG INJ IV ONE (21:00)
[2017-06-30] MEDS ORDERED: morphine 10 MG INJ IV ONE (21:00)
[2017-06-30] MEDS: ATORVASTATIN 10 MG TAB PO SCH (21:00)
[2017-06-30] MEDS ORDERED: LOPERAMIDE LIQUID CUP 1 MG/5 ML CUP PO ONE (23:30)
[2017-07-01] VITALS (52 sets, daily range): BP systolic 99–158; BP diastolic 47–93; PULSE 97–126; RESP 12–23
[2017-07-01] MEDS: PANTOPRAZOLE IV 80 MG in SOD CHLORIDE 0.9% 100 ML IV SCH ×2 (01:45→11:53)
[2017-07-01] MEDS: ACCU-CHEK XX SCH (02:00)
[2017-07-01] MEDS ORDERED: LIDOCAINE 1% (MPF) 5 ML VIAL SC ONE (03:00)
[2017-07-01 06:11] LABS: HEMATOCRIT 26.4 % (42.0-52.0)
[2017-07-01] MEDS: PROPOFOL 100 ML IV SCH ×2 (07:00)
[2017-07-01] MEDS: HYDROmorphONE 1 MG/ML SYG IV PRN ×5 (07:16→20:37)
[2017-07-01] MEDS: INSULIN ASPART [NOVOLOG] 3 ML PEN SC SCH ×5 (07:35→20:20)
[2017-07-01] MEDS: INSULIN GLARGINE [LANtus] 3 ML PEN SC SCH (08:00)
[2017-07-01] MEDS: OXYCODONE/ACETAMINOPHEN (5/325) TAB PO PRN ×2 (09:06→22:58)
[2017-07-01] MEDS: SUCRALFATE 1 GM TAB PO SCH ×4 (09:06→20:37)
[2017-07-01] MEDS ORDERED: OXYCODONE/ACETAMINOPHEN (5/325) TAB PO ONE (10:00)
--- NOTE | 2017-07-01 10:36 | RADRPT ---
PROCEDURE: Gastrointestinal bleeding scan CLINICAL INDICATION: 51 year-old patient with blood loss. TECHNIQUE: Following the intravenous injection of 27.0 mCi of Tc-99m labeled red blood cells, mult iple dynamic anterior images of the abdomen were obtained up to 60 minutes post injection. COMPARISON: No prior gastrointestinal bleeding scans. FINDINGS: Abnormal area of increased activity is seen in the mid upper abdomen, which demonstrate a movement o f activity along the loops of the small bowel with time. No other definite abnormal areas of increased activity are seen in the abdomen and pelvis up to 60 m inutes post injection. Physiologic activity is seen in the liver and vessels. IMPRESSION: Scintigraphically detectable gastrointestinal bleeding with the likely origin within the small bowel in the upper mid abdomen. A call report was made to Dr. Mireles June 30 04:17 p.m. RPTAT: HH .Anuradha Heath MD, Date Time Electronically viewed and signed by .Anuradha Heath MD, on 07/01/2017 10:36 .[place]het[place]/
--- NOTE | 2017-07-01 11:52 | RADRPT ---
PROCEDURE: US guidance for PICC line CLINICAL INDICATION: PICC line placement TECHNIQUE: Multiple real-time images were acquired of the patient's arm utilizing a high resolutio n transducer. This was performed by the PICC line nurse for venous access. COMPARISON: None FINDINGS: Ultrasound guidance for PICC line placement. IMPRESSION: Ultrasound guidance for PICC line placement. RPTAT: AA .Ranjan Guerra MD, MD Date Time Electronically viewed and signed by .Ranjan Guerra MD, on 07/01/2017 11:51 .S/
[2017-07-01] MEDS ORDERED: SOD CHLORIDE 0.9% 100 ML ONE (12:32)
[2017-07-01 14:20] LABS: HEMATOCRIT 27.4 % (42.0-52.0); HEMOGLOBIN 9.6 g/dl (14.0-18.0)
[2017-07-01] MEDS ORDERED: ACETAMINOPHEN 325 MG TAB PO PRN (15:30)
--- NOTE | 2017-07-01 16:23 | PN ---
Date/Time of Note Date/Time of Note DATE: 07/01/17 TIME: 16:16 Assessment/Plan VTE Prophylaxis VTE Prophylaxis Intervention: SCD's Lines/Catheters IV Catheter Type (from Nrs): PICC Line Central line still needed: Yes Urinary Cath still in place: No Assessment/Plan Assessment/Plan Assessment * Anemia EGD Grade I/IV esophageal varices with no stigmata of recent bleeding Moderate distal esophagitis. No evidence of active or recent bleeding Moderate gastritis. No evidence of active or recent bleeding Normal duodenum and second portion of the duodenum * Per sedation respiratory insufficiency, post intubation Plan * continue present management * case discussed with Dr Mireles * Further orders will depend on clinical course Subjective 24 Hr Interval Summary Free Text/Dictation * Course reviewed with RN * patient seen and examined * EGD Grade I/IV esophageal varices with no stigmata of recent bleeding Moderate distal esophagitis. No evidence of active or recent bleeding Moderate gastritis. No evidence of active or recent bleeding Normal duodenum and second portion of the duodenum Per sedation respiratory insufficiency, post intubation Exam/Review of Systems Vital Signs Vitals Vital Signs Date Time Temp Pulse Resp B/P Pulse Ox O2 Delivery O2 Flow Rate FiO2 07/01/17 16:00 99.0 99 22 143/76 98 Nasal Cannula 07/01/17 05:59 2.0 06/30/17 18:03 100 Intake and Output 06/30/17 06/30/17 07/01/17 15:00 23:00 07:00 Intake Total 953 ml 1555 ml 370 ml Output Total 700 ml 700 ml 700 ml Balance 253 ml 855 ml -330 ml Exam Constitutional: alert, oriented Neck: non-tender, supple Respiratory: clear to auscultation, normal air movement Cardiovascular: nl pulses, regular rate and rhythm Gastrointestinal: soft Musculoskeletal: nl extremities to inspection Extremities: normal pulses Neurological: nl speech, nl strength Results Result Diagram: 07/01/17 1325 06/30/17 1340 Results 24 hrs Laboratory Tests Test 06/30/17 18:10 06/30/17 18:22 06/30/17 19:43 06/30/17 22:04 Hemoglobin 8.1 #L Hematocrit 22.9 #L Bedside Glucose 201 126 Blood Gas Specimen Source Blood arterial Arterial Blood Date Drawn 06/30/2017 8:40:27 PM Arterial Blood pH (Temp corrected) 7.473 H Arterial Blood pCO2 (Temp correct) 33.2 L Arterial Blood pO2 (Temp corrected) 89.4 Arterial Blood HCO3 23.8 Arterial Blood Base Excess 0.4 Arterial Blood Oxygen Saturation 96.2 Charles Test ACCEPTAB Arterial Blood Gas Puncture Site Left Radial Arterial Blood Carboxyhemoglobin 0.2 Arterial Blood Methemoglobin 0.3 Blood Gas A-a O2 Differential 20.6 Oxyhemoglobin Percent 95.7 Total Hemoglobin 9.0 L Blood Gas Temperature 37.0 Blood Gas Modality ROOM AIR FiO2 21.0 Blood Gas Notified Whom MA Blood Gas Notified Time 06/30/2017 8:51:05 PM Test 07/01/17 05:25 07/01/17 05:34 07/01/17 08:40 07/01/17 11:51 Hemoglobin 9.0 L Hematocrit 26.4 L Lab Scanned Report BLOOD TRANSFUSION Bedside Glucose 119 119 Test 07/01/17 13:25 Hemoglobin 9.6 L Hematocrit 27.4 L Medications Medications Current Medications Atorvastatin Calcium (Lipitor) 10 mg QHS PO Last administered on 06/29/17 22: 11; Admin Dose 10 MG; Start 06/29/17 at 21:00 Oxycodone/ Acetaminophen (Percocet (5/ 325)) 1 tab Q6H PRN PO MODERATE PAIN LEVEL 4-6 Last administered on 07/01/17 09:06; Admin Dose 1 TAB; Start at 18:30 Hydromorphone HCl (Dilaudid) 0.5 mg Q4H PRN IV SEVERE PAIN LEVEL 7-10 Last administered on 07/01/17 16:15; Admin Dose 0.5 MG; Start 06/29/17 at 18:30 Diagnostic Test (Pha) (Accu-Chek) 1 ea 02 XX Last administered on 06/30/17 02: 00; Admin Dose 1 EA; Start 06/30/17 at 02:00 Insulin Glargine (Lantus) 8 unit DAILY@08 SC ; Start 06/30/17 at 08:00 Miscellaneous Information 1 ea NOTE XX ; Start 06/29/17 at 18:30 Glucose (Glutose) 15 gm Q15M PRN PO DECREASED GLUCOSE; Start 06/29/17 at 18:30 Glucose (Glutose) 22.5 gm Q15M PRN PO DECREASED GLUCOSE; Start 06/29/17 at 18: 30 Dextrose (D50w Syringe) 25 ml Q15M PRN IV DECREASED GLUCOSE; Start 06/29/17 at 18:30 Dextrose (D50w Syringe) 50 ml Q15M PRN IV DECREASED GLUCOSE; Start 06/29/17 at 18:30 Glucagon (Glucagen) 1 mg Q15M PRN IM DECREASED GLUCOSE; Start 06/29/17 at 18:30 Glucose (Glutose) 15 gm Q15M PRN BUCCAL DECREASED GLUCOSE; Start 06/29/17 at 18 :30 Ondansetron HCl 4 mg 4 mg Q6H PRN IV NAUSEA AND/OR VOMITING Last administered on 06/30/17 03:47; Admin Dose 4 MG; Start 06/30/17 at 04:00 Pantoprazole/ Sodium Chloride (Protonix Iv/NS) 100 ml @ 10 mls/hr Q10H IV Last administered on 07/01/17 11:53; Admin Dose 10 MLS/HR; Start 06/30/17 at 05 :45 Lorazepam (Ativan) 1 mg Q4H PRN IV anxiety Last administered on 06/30/17 13:49 ; Admin Dose 1 MG; Start 06/30/17 at 14:00 Sucralfate (Carafate) 1 gm QID PO Last administered on 07/01/17 13:50; Admin Dose 1 GM; Start 06/30/17 at 15:00 IV Flush (NS 10 ml) 10 ml PRN PRN IV IV PROTOCOL; Start 07/01/17 at 12:00 Acetaminophen (Tylenol Tab) 650 mg Q6H PRN PO PAIN AND OR ELEVATED TEMP Last administered on 07/01/17 15:44; Admin Dose 650 MG; Start 07/01/17 at 15:30 LILLIAN MOJICA NP Jul 01, 2017 16:23
--- NOTE | 2017-07-01 16:27 | PN ---
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 On the floor with episode of massive hematochezia and hematemesis with Hgb 12 -> 5, tachycardic but HD stable. Coumadin reversed, PRBCs transfused. S/p EGD. Now stable Massive GI bleed and acute blood loss anemia, likely 2/2 PUD in proximal small bowel - PPI drip - Transfuse > 7.5 for active massive bleed - Support hemodynamics - Coumadin reversed w KCentra and FFP Hypertension: - Hold home meds while in acute blood loss anemia Further diagnostic workup and management pending clinical course Problems: Subjective 24 Hr Interval Summary Free Text/Dictation Scope yesterday showing gastritis/esophagitis no source of active bleeding found. Grade 1 varices as well Intubated overnight, self extubated doing fine Still tachycardia, still complaining of vague chest discomfort Nuclear scan suggestive of bleeding in proximal small bowel Exam/Review of Systems Vital Signs Vitals Vital Signs Date Time Temp Pulse Resp B/P Pulse Ox O2 Delivery O2 Flow Rate FiO2 07/01/17 16:00 99.0 99 22 143/76 98 Nasal Cannula 07/01/17 05:59 2.0 06/30/17 18:03 100 Intake and Output 06/30/17 06/30/17 07/01/17 14:59 22:59 06:59 Intake Total 631 ml 1867 ml 380 ml Output Total 700 ml 700 ml 700 ml Balance -69 ml 1167 ml -320 ml Exam Constitutional: alert, oriented, well developed Psych: nl mood/affect, no complaints Head: atraumatic, normocephalic Eyes: EOMI, PERRL, nl conjunctiva, nl lids, nl sclera ENMT: nl external ears & nose, nl lips & teeth, nl nasal mucosa & septum Neck: non-tender, supple Respiratory: clear to auscultation, normal air movement Cardiovascular: nl pulses, regular rate and rhythm Gastrointestinal: nl liver, spleen, non-tender, soft Musculoskeletal: nl extremities to inspection, nl gait and stance Extremities: normal pulses 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, nl mental status, nl speech, nl strength Skin: nl turgor, No rash or lesions Lymph: nl lymph nodes Results Result Diagram: 07/01/17 1325 06/30/17 1340 Results 24 hrs Laboratory Tests Test 06/30/17 18:10 06/30/17 18:22 06/30/17 19:43 06/30/17 22:04 Hemoglobin 8.1 #L Hematocrit 22.9 #L Bedside Glucose 201 126 Blood Gas Specimen Source Blood arterial Arterial Blood Date Drawn 06/30/2017 8:40:27 PM Arterial Blood pH (Temp corrected) 7.473 H Arterial Blood pCO2 (Temp correct) 33.2 L Arterial Blood pO2 (Temp corrected) 89.4 Arterial Blood HCO3 23.8 Arterial Blood Base Excess 0.4 Arterial Blood Oxygen Saturation 96.2 Charles Test ACCEPTAB Arterial Blood Gas Puncture Site Left Radial Arterial Blood Carboxyhemoglobin 0.2 Arterial Blood Methemoglobin 0.3 Blood Gas A-a O2 Differential 20.6 Oxyhemoglobin Percent 95.7 Total Hemoglobin 9.0 L Blood Gas Temperature 37.0 Blood Gas Modality ROOM AIR FiO2 21.0 Blood Gas Notified Whom MA Blood Gas Notified Time 06/30/2017 8:51:05 PM Test 07/01/17 05:25 07/01/17 05:34 07/01/17 08:40 07/01/17 11:51 Hemoglobin 9.0 L Hematocrit 26.4 L Lab Scanned Report BLOOD TRANSFUSION Bedside Glucose 119 119 Test 07/01/17 13:25 Hemoglobin 9.6 L Hematocrit 27.4 L Medications Medications Current Medications Atorvastatin Calcium (Lipitor) 10 mg QHS PO Last administered on 06/29/17 22: 11; Admin Dose 10 MG; Start 06/29/17 at 21:00 Oxycodone/ Acetaminophen (Percocet (5/ 325)) 1 tab Q6H PRN PO MODERATE PAIN LEVEL 4-6 Last administered on 07/01/17 09:06; Admin Dose 1 TAB; Start at 18:30 Hydromorphone HCl (Dilaudid) 0.5 mg Q4H PRN IV SEVERE PAIN LEVEL 7-10 Last administered on 07/01/17 16:15; Admin Dose 0.5 MG; Start 06/29/17 at 18:30 Diagnostic Test (Pha) (Accu-Chek) 1 ea 02 XX Last administered on 06/30/17 02: 00; Admin Dose 1 EA; Start 06/30/17 at 02:00 Insulin Glargine (Lantus) 8 unit DAILY@08 SC ; Start 06/30/17 at 08:00 Miscellaneous Information 1 ea NOTE XX ; Start 06/29/17 at 18:30 Glucose (Glutose) 15 gm Q15M PRN PO DECREASED GLUCOSE; Start 06/29/17 at 18:30 Glucose (Glutose) 22.5 gm Q15M PRN PO DECREASED GLUCOSE; Start 06/29/17 at 18: 30 Dextrose (D50w Syringe) 25 ml Q15M PRN IV DECREASED GLUCOSE; Start 06/29/17 at 18:30 Dextrose (D50w Syringe) 50 ml Q15M PRN IV DECREASED GLUCOSE; Start 06/29/17 at 18:30 Glucagon (Glucagen) 1 mg Q15M PRN IM DECREASED GLUCOSE; Start 06/29/17 at 18:30 Glucose (Glutose) 15 gm Q15M PRN BUCCAL DECREASED GLUCOSE; Start 06/29/17 at 18 :30 Ondansetron HCl 4 mg 4 mg Q6H PRN IV NAUSEA AND/OR VOMITING Last administered on 06/30/17 03:47; Admin Dose 4 MG; Start 06/30/17 at 04:00 Pantoprazole/ Sodium Chloride (Protonix Iv/NS) 100 ml @ 10 mls/hr Q10H IV Last administered on 07/01/17 11:53; Admin Dose 10 MLS/HR; Start 06/30/17 at 05 :45 Lorazepam (Ativan) 1 mg Q4H PRN IV anxiety Last administered on 06/30/17 13:49 ; Admin Dose 1 MG; Start 06/30/17 at 14:00 Sucralfate (Carafate) 1 gm QID PO Last administered on 07/01/17 13:50; Admin Dose 1 GM; Start 06/30/17 at 15:00 IV Flush (NS 10 ml) 10 ml PRN PRN IV IV PROTOCOL; Start 07/01/17 at 12:00 Acetaminophen (Tylenol Tab) 650 mg Q6H PRN PO PAIN AND OR ELEVATED TEMP Last administered on 07/01/17t 15:44; Admin Dose 650 MG; Start 07/01/17 at 15:30 MCKENZIE BONILLA MD Jul 01, 2017 16:27
--- NOTE | 2017-07-01 16:32 | RADRPT ---
Vent Rate: 122 bpm RR Interval: 0 msec [place] Interval: 144 msec QRS Duration: 88 msec QT Interval: 326 msec QTC Interval: 464 msec P-R-T [place]: 49 - 67 - 39 degrees Sinus tachycardia Otherwise normal ECG Electronically Signed By: Ari Coker [id number]
--- NOTE | 2017-07-01 17:01 | RADRPT ---
PROCEDURE: XR Chest. CLINICAL INDICATION: Status post PICC line placement. TECHNIQUE: AP Portable chest. COMPARISON: Chest x-ray 06/30/2017. FINDINGS: There is a right PICC line with its distal tip at the RA/SVC junction. The endotracheal tube has bee n removed. Mild cardiomegaly is unchanged. There is minimal bibasilar atelectasis. The lungs are ot herwise clear. No pleural effusion is noted. IMPRESSION: 1. Right PICC line with its distal tip at the RA/SVC junction. 2. Status post removal of the endotracheal tube. 3. Mild cardiomegaly. 4. Minimal bibasilar atelectasis, improved. RPTAT: PP .Harriet Kimbrough MD, MD Date Time Electronically viewed and signed by .Harriet Kimbrough MD, MD on 07/01/2017 17:01 .H/
[2017-07-01] MEDS: PANTOPRAZOLE 40 MG INJ IV SCH (17:24)
[2017-07-01] MEDS: ATORVASTATIN 10 MG TAB PO SCH (20:37)
[2017-07-01 20:41] LABS: HEMATOCRIT 26.4 % (42.0-52.0); HEMOGLOBIN 8.9 g/dl (14.0-18.0)
[2017-07-02] VITALS (12 sets, daily range): BP systolic 124–152; BP diastolic 70–88; PULSE 95–120; RESP 17–20
[2017-07-02] MEDS: HYDROmorphONE 1 MG/ML SYG IV PRN ×5 (00:10→21:14)
[2017-07-02 00:56] LABS: HEMATOCRIT 28.6 % (42.0-52.0)
[2017-07-02] MEDS: ACCU-CHEK XX SCH (01:10)
[2017-07-02] MEDS: CEPASTAT LOZENGE MT PRN ×3 (05:00→21:07)
[2017-07-02] MEDS: PANTOPRAZOLE 40 MG INJ IV SCH ×2 (05:00→17:51)
[2017-07-02] MEDS: OXYCODONE/ACETAMINOPHEN (5/325) TAB PO PRN ×2 (06:51→12:33)
[2017-07-02 07:20] LABS: HEMATOCRIT 28.1 % (42.0-52.0); HEMOGLOBIN 9.6 g/dl (14.0-18.0)
[2017-07-02] MEDS: INSULIN ASPART [NOVOLOG] 3 ML PEN SC SCH ×4 (07:55→21:00)
[2017-07-02] MEDS: SUCRALFATE 1 GM TAB PO SCH ×4 (08:04→21:07)
[2017-07-02] MEDS: INSULIN GLARGINE [LANtus] 3 ML PEN SC SCH (08:06)
--- NOTE | 2017-07-02 12:15 | PN ---
Date/Time of Note Date/Time of Note DATE: 07/02/17 TIME: 12:15 Assessment/Plan VTE Prophylaxis VTE Prophylaxis Intervention: SCD's Lines/Catheters IV Catheter Type (from Nrs): PICC Line Central line still needed: Yes Urinary Cath still in place: No Assessment/Plan Chief Complaint/Hosp Course Assessment * Anemia EGD Grade I/IV esophageal varices with no stigmata of recent bleeding Moderate distal esophagitis. No evidence of active or recent bleeding Moderate gastritis. No evidence of active or recent bleeding Normal duodenum and second portion of the duodenum * Per sedation respiratory insufficiency, post intubation Plan * continue present management Subjective 24 Hr Interval Summary Free Text/Dictation * Course reviewed with RN * patient seen and examined * No further bleeding * Hemoglobin now is stable * Ideally avoid anticoagulation * Exam Constitutional: alert, oriented Neck: non-tender, supple Respiratory: clear to auscultation, normal air movement Cardiovascular: nl pulses, regular rate and rhythm Gastrointestinal: soft Musculoskeletal: nl extremities to inspection Extremities: normal pulses Neurological: nl speech, nl strength Problems: Exam/Review of Systems Vital Signs Vitals Vital Signs Date Time Temp Pulse Resp B/P Pulse Ox O2 Delivery O2 Flow Rate FiO2 07/02/17 11:32 98.2 92 17 130/73 98 07/02/17 08:21 Nasal Cannula 3.0 06/30/17 18:03 100 Intake and Output 07/01/17 07/01/17 07/02/17 15:00 23:00 07:00 Intake Total 1995 ml 620 ml 400 ml Output Total 900 ml 600 ml Balance 1095 ml 20 ml 400 ml Results Result Diagram: 07/02/17 0644 06/30/17 1340 Results 24 hrs Laboratory Tests Test 07/01/17 13:25 07/01/17 17:14 07/01/17 20:16 07/01/17 20:19 Hemoglobin 9.6 L 8.9 L Hematocrit 27.4 L 26.4 L Bedside Glucose 135 121 Test 07/02/17 00:45 07/02/17 06:44 07/02/17 07:42 07/02/17 08:00 Hemoglobin 10.0 L 9.6 L Hematocrit 28.6 L 28.1 L Lab Scanned Report BLOOD TRANSFUSION Bedside Glucose 130 Test 07/02/17 11:28 Bedside Glucose 143 Medications Medications Current Medications Atorvastatin Calcium (Lipitor) 10 mg QHS PO Last administered on 07/01/17 20: 37; Admin Dose 10 MG; Start 06/29/17 at 21:00 Oxycodone/ Acetaminophen (Percocet (5/ 325)) 1 tab Q6H PRN PO MODERATE PAIN LEVEL 4-6 Last administered on 07/02/17 06:51; Admin Dose 1 TAB; Start at 18:30 Hydromorphone HCl (Dilaudid) 0.5 mg Q4H PRN IV SEVERE PAIN LEVEL 7-10 Last administered on 07/02/17 09:13; Admin Dose 0.5 MG; Start 06/29/17 at 18:30 Diagnostic Test (Pha) (Accu-Chek) 1 ea 02 XX Last administered on 06/30/17 02: 00; Admin Dose 1 EA; Start 06/30/17 at 02:00 Insulin Glargine (Lantus) 8 unit DAILY@08 SC Last administered on 07/02/17 08: 06; Admin Dose 8 UNIT; Start 06/30/17 at 08:00 Miscellaneous Information 1 ea NOTE XX ; Start 06/29/17 at 18:30 Glucose (Glutose) 15 gm Q15M PRN PO DECREASED GLUCOSE; Start 06/29/17 at 18:30 Glucose (Glutose) 22.5 gm Q15M PRN PO DECREASED GLUCOSE; Start 06/29/17 at 18: 30 Dextrose (D50w Syringe) 25 ml Q15M PRN IV DECREASED GLUCOSE; Start 06/29/17 at 18:30 Dextrose (D50w Syringe) 50 ml Q15M PRN IV DECREASED GLUCOSE; Start 06/29/17 at 18:30 Glucagon (Glucagen) 1 mg Q15M PRN IM DECREASED GLUCOSE; Start 06/29/17 at 18:30 Glucose (Glutose) 15 gm Q15M PRN BUCCAL DECREASED GLUCOSE; Start 06/29/17 at 18 :30 Ondansetron HCl (Zofran Inj) 4 mg Q6H PRN IV NAUSEA AND/OR VOMITING Last administered on 06/30/17 03:47; Admin Dose 4 MG; Start 06/30/17 at 04:00 Lorazepam (Ativan) 1 mg Q4H PRN IV anxiety Last administered on 06/30/17 13:49 ; Admin Dose 1 MG; Start 06/30/17 at 14:00 Sucralfate (Carafate) 1 gm QID PO Last administered on 07/02/17 08:04; Admin Dose 1 GM; Start 06/30/17 at 15:00 IV Flush (NS 10 ml) 10 ml PRN PRN IV IV PROTOCOL; Start 07/01/17 at 12:00 Acetaminophen (Tylenol Tab) 650 mg Q6H PRN PO PAIN AND OR ELEVATED TEMP Last administered on 07/01/17 15:44; Admin Dose 650 MG; Start 07/01/17 at 15:30 Pantoprazole (Protonix Iv) 40 mg BID@06,18 IV Last administered on 07/02/17 05 :00; Admin Dose 40 MG; Start 07/01/17 at 18:00 Phenol (Cepastat Lozenge) 1 lozenge Q2H PRN MT SORE THROAT Last administered on 07/02/17 09:13; Admin Dose 1 LOZENGE; Start 07/02/17 at 00:30 PRITI BROWN MD Jul 02, 2017 12:15
--- NOTE | 2017-07-02 19:46 | PN ---
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 On the floor with episode of massive hematochezia and hematemesis with Hgb 12 -> 5, tachycardic but HD stable. Coumadin reversed, PRBCs transfused. S/p EGD. Now stable on the floor, complaining of pain requiring opiates Massive GI bleed and acute blood loss anemia, likely 2/2 lesion in proximal small bowel - PPI - Transfuse > 7.5 for active massive bleed - Support hemodynamics - Coumadin reversed w KCentra and FFP Hypertension: - Hold home meds while in acute blood loss anemia H/o DVT 2/2 protein S deficiency - Hold AC indefinitely given massive bleed. Needs to be readdressed as outpatinet with PMD Pain: - Unclear etiology after extensive workup - Starting to suspect drug seeking behavior Likely discharge tomorrow Problems: Subjective 24 Hr Interval Summary Free Text/Dictation H/H stable No more bleeding Still complaining of odd pain in his shoulder, head and chest, requesting more IV opaites Exam/Review of Systems Vital Signs Vitals Vital Signs Date Time Temp Pulse Resp B/P Pulse Ox O2 Delivery O2 Flow Rate FiO2 07/02/17 19:31 99.2 102 20 135/74 94 07/02/17 09:50 21 07/02/17 08:21 Nasal Cannula 3.0 Intake and Output 07/01/17 07/01/17 07/02/17 15:00 23:00 07:00 Intake Total 1995 ml 620 ml 400 ml Output Total 900 ml 600 ml Balance 1095 ml 20 ml 400 ml Exam Constitutional: alert, oriented, well developed Psych: nl mood/affect, no complaints Head: atraumatic, normocephalic Eyes: EOMI, PERRL, nl conjunctiva, nl lids, nl sclera ENMT: nl external ears & nose, nl lips & teeth, nl nasal mucosa & septum Neck: non-tender, supple Respiratory: clear to auscultation, normal air movement Cardiovascular: nl pulses, regular rate and rhythm Gastrointestinal: nl liver, spleen, non-tender, soft Musculoskeletal: nl extremities to inspection, nl gait and stance Extremities: normal pulses 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, nl mental status, nl speech, nl strength Skin: nl turgor, No rash or lesions Lymph: nl lymph nodes Results Result Diagram: 07/02/17 0644 06/30/17 1340 Results 24 hrs Laboratory Tests Test 07/01/17 20:16 07/01/17 20:19 07/02/17 00:45 07/02/17 06:44 Bedside Glucose 121 Hemoglobin 8.9 L 10.0 L 9.6 L Hematocrit 26.4 L 28.6 L 28.1 L Test 07/02/17 07:42 07/02/17 08:00 07/02/17 11:28 07/02/17 17:44 Lab Scanned Report BLOOD TRANSFUSION Bedside Glucose 130 143 137 Medications Medications Current Medications Atorvastatin Calcium (Lipitor) 10 mg QHS PO Last administered on 07/01/17 20: 37; Admin Dose 10 MG; Start 06/29/17 at 21:00 Oxycodone/ Acetaminophen (Percocet (5/ 325)) 1 tab Q6H PRN PO MODERATE PAIN LEVEL 4-6 Last administered on 07/02/17 12:33; Admin Dose 1 TAB; Start at 18:30 Diagnostic Test (Pha) (Accu-Chek) 1 ea 02 XX Last administered on 06/30/17 02: 00; Admin Dose 1 EA; Start 06/30/17 at 02:00 Insulin Glargine (Lantus) 8 unit DAILY@08 SC Last administered on 07/02/17 08: 06; Admin Dose 8 UNIT; Start 06/30/17 at 08:00 Miscellaneous Information 1 ea NOTE XX ; Start 06/29/17 at 18:30 Glucose (Glutose) 15 gm Q15M PRN PO DECREASED GLUCOSE; Start 06/29/17 at 18:30 Glucose (Glutose) 22.5 gm Q15M PRN PO DECREASED GLUCOSE; Start 06/29/17 at 18: 30 Dextrose (D50w Syringe) 25 ml Q15M PRN IV DECREASED GLUCOSE; Start 06/29/17 at 18:30 Dextrose (D50w Syringe) 50 ml Q15M PRN IV DECREASED GLUCOSE; Start 06/29/17 at 18:30 Glucagon (Glucagen) 1 mg Q15M PRN IM DECREASED GLUCOSE; Start 06/29/17 at 18:30 Glucose (Glutose) 15 gm Q15M PRN BUCCAL DECREASED GLUCOSE; Start 06/29/17 at 18 :30 Ondansetron HCl (Zofran Inj) 4 mg Q6H PRN IV NAUSEA AND/OR VOMITING Last administered on 06/30/17 03:47; Admin Dose 4 MG; Start 06/30/17 at 04:00 Lorazepam (Ativan) 1 mg Q4H PRN IV anxiety Last administered on 06/30/17 13:49 ; Admin Dose 1 MG; Start 06/30/17 at 14:00 Sucralfate (Carafate) 1 gm QID PO Last administered on 07/02/17 17:51; Admin Dose 1 GM; Start 06/30/17 at 15:00 IV Flush (NS 10 ml) 10 ml PRN PRN IV IV PROTOCOL; Start 07/01/17 at 12:00 Acetaminophen (Tylenol Tab) 650 mg Q6H PRN PO PAIN AND OR ELEVATED TEMP Last administered on 07/01/17 15:44; Admin Dose 650 MG; Start 07/01/17 at 15:30 Pantoprazole (Protonix Iv) 40 mg BID@06,18 IV Last administered on 07/02/17 17 :51; Admin Dose 40 MG; Start 07/01/17 at 18:00 Phenol (Cepastat Lozenge) 1 lozenge Q2H PRN MT SORE THROAT Last administered on 07/02/17 09:13; Admin Dose 1 LOZENGE; Start 07/02/17 at 00:30 Hydromorphone HCl (Dilaudid) 1 mg Q4H PRN IV SEVERE PAIN LEVEL 7-10 Last administered on 07/02/17 13:55; Admin Dose 1 MG; Start 07/02/17 at 14:30 MCKENZIE BONILLA MD Jul 02, 2017 19:46
[2017-07-02] MEDS: ATORVASTATIN 10 MG TAB PO SCH (21:07)
[2017-07-03] VITALS (8 sets, daily range): BP systolic 133–148; BP diastolic 72–86; PULSE 95–120; RESP 16–19
[2017-07-03] MEDS: OXYCODONE/ACETAMINOPHEN (5/325) TAB PO PRN ×2 (00:20→12:36)
[2017-07-03] MEDS: HYDROmorphONE 1 MG/ML SYG IV PRN ×3 (01:22→08:42)
[2017-07-03] MEDS: ACCU-CHEK XX SCH (01:40)
[2017-07-03] MEDS: PANTOPRAZOLE 40 MG INJ IV SCH (05:23)
[2017-07-03] MEDS: ONDANSETRON 4 MG INJ IV PRN (05:54)
[2017-07-03] MEDS: INSULIN ASPART [NOVOLOG] 3 ML PEN SC SCH ×2 (07:47→11:48)
[2017-07-03 08:35] LABS: BASOPHIL # 0.1 10^3/ul (0.0-0.1); BASOPHILS % 0.5 % (0.0-2.0); EOSINOPHILS # 0.4 10^3/ul (0.0-0.5); EOSINOPHILS % 3.5 % (0.0-7.0); HEMATOCRIT 26.6 % (42.0-52.0); HEMOGLOBIN 9.1 g/dl (14.0-18.0); LYMPHOCYTES # 2.1 10^3/ul (0.8-2.9); LYMPHOCYTES % 19.3 % (15.0-51.0); MEAN CORPUSCULAR HEMOGLOBIN 31.9 pg (29.0-33.0); MEAN CORPUSCULAR HGB CONC 34.2 g/dl (32.0-37.0); MEAN CORPUSCULAR VOLUME 93.3 fl (82.0-101.0); MEAN PLATELET VOLUME 9.8 fl (7.4-10.4); MONOCYTE # 1.2 10^3/ul (0.3-0.9); MONOCYTES % 10.8 % (0.0-11.0); NEUTROPHIL # 6.9 10^3/ul (1.6-7.5); NEUTROPHILS % 62.8 % (39.0-77.0); NUCLEATED RED BLOOD CELLS% 0.3 /100WBC (0.0-0.0); PLATELET COUNT 196 10^3/UL (140-415); RED BLOOD COUNT 2.85 10^6/ul (4.70-6.10); RED CELL DISTRIBUTION WIDTH 13.5 % (11.5-14.5)
[2017-07-03] MEDS: SUCRALFATE 1 GM TAB PO SCH ×2 (08:41→13:09)
[2017-07-03 08:44] LABS: INR 0.78; PROTIME 10.8 Sec (12.2-14.2); PT RATIO 0.8
[2017-07-03 08:48] LABS: ALBUMIN/GLOBULIN RATIO 1.15; BILIRUBIN,INDIRECT 0.2 mg/dl (0-1.1); BILIRUBIN,TOTAL 0.2 mg/dl (0.2-1.3); CALCIUM 7.8 mg/dl (8.4-10.2); CREATININE 0.72 mg/dl (0.61-1.24); POTASSIUM 3.4 mmol/L (3.5-5.1); TOTAL PROTEIN 5.6 g/dl (6.1-8.1)
[2017-07-03] MEDS: INSULIN GLARGINE [LANtus] 3 ML PEN SC SCH (09:02)
[2017-07-03] MEDS ORDERED: OMEP20CA16 PO (12:02)
--- NOTE | 2017-07-03 12:05 | PDOCDIS ---
Discharge Instructions DIAGNOSIS Discharge Diagnosis Ulcer and gastrointestinal bleeding CONDITION Patient Condition: Good HOME CARE INSTRUCTIONS: Diet Instructions: Reduced CalorieSpecial Diet: Carbb controlled FOLLOW UP/APPOINTMENTS Follow-up Plan You were diagnosed with an upper gastrointestinal bleed. This was likely because of the combination of warfarin and the NSAID medications you were taking. Given the life threatening nature of the blood loss you suffered, it is best to stop taking coumadin for the time being, and discuss with your doctor in clinic whether it makes sense to restart this medication in the future You should avoid taking any NSAID medications as well. You have early signs of liver cirrhosis so it is also very important that you avoid alcohol and lose weight, as obesity is damaging to the liver as well. Make an appointment with Dr Mireles in clinic in the coming weeks Please return to the hospital if you have any concerning symptoms or if your bleeding recurs It has been a pleasure taking care of you MCKENZIE BONILLA MD Jul 03, 2017 12:05
--- NOTE | 2017-07-03 12:13 | DS ---
Date/Time of Note Date/Time of Note DATE: 07/03/17 TIME: 12:09 Discharge Summary Admission/Discharge Info Admit Date/Time Jun 29, 2017 at 16:24 Discharge Date/Time Discharge Diagnosis Ulcer and gastrointestinal bleeding Patient Condition: Good Hx of Present Illness 51 yo male h/o HTN, Protein S deficiency leading to 2 PEs on coumadin, presenting with 2 weeks of illness. Patient felt completely well until about two weeks ago. Developed nasal congestion then URI symptoms, others aroudn him also sick. Symptoms have progressed. Has developed very bothersome cough wtihout much production, SOB, palpitations, disabling chest pressure which seems constant. Also diarrhea, nausa and vomiting. Has been to a couple EDs for these sypmtosm already, given Z pack and IM abx already, symptoms have worsened. Came here today for evaluation fo same symptoms as not improving. Foudn to be markedly tachycaric and anxious, given ativan for agitation Seen by me, felt w HR in 140s resting, unclear if SVT. Given 6 adenosine w/o change. Still complaiing of chest pressure and SOB at rest. Hospital Course 51 yo male wtih ho obestiy, hypertension, PEs from Protein s deficiency on lifelong coumadin presenting with 2 weeks of SOB, chest pressure, nasal congesion, cough and diarrrhea, not improving wiht outpatient abx. The night of admission he suffered an episode of massive hematochezia and hematemesis with Hgb 12 -> 5, tachycardic but HD stable. Coumadin reversed, PRBCs transfused. Nuclear scan showed bleeding source in the proximal small bowel. He underwent EGD showing gastritis, esophagitis and esophageal varices suggestive of cirrhosis, but no source of active bleeding was found. He remained in the hospital for a couple days following his acute bleed and had no further episodes of bleeding, H/H was stable. He was instructed to stop taking coumadin or any NSAIDs until he can discuss risks and benefits with his primary doctor. He was prescribed omeprazole at discharge. He was also informed about his early liver problem and the importance of weight loss and alcohol avoidance. Home Meds Reported Medications Benzonatate* (Tessalon Perle*) 100 Mg Capsule, 100 MG PO Q8H Y for COUGH, CAP 06/29/17 Lisinopril* (Lisinopril*) 10 Mg Tablet, 10 MG PO DAILY, #30 TAB 06/29/17 Atorvastatin Calcium (Atorvastatin Calcium) 10 Mg Tablet, 10 MG PO QHS, #30 TAB 06/29/17 Warfarin Sodium* (Warfarin Sodium*) 4 Mg Tablet, 4 MG PO DAILY, TAB 06/29/17 Albuterol Sulfate* (Ventolin HFA*) 18 Gm Hfa.aer.ad, 2 PUFF INHALATION Q4H Y for WHEEZING AND SOB, #1 INHALER 06/29/17 Citalopram Hydrobromide* (Citalopram Hydrobromide*) 40 Mg Tablet, 40 MG PO DAILY , #30 TAB 06/29/17 Amlodipine Besylate* (Amlodipine Besylate*) 10 Mg Tablet, 10 MG PO DAILY, #30 TAB 06/29/17 Follow-up Plan You were diagnosed with an upper gastrointestinal bleed. This was likely because of the combination of warfarin and the NSAID medications you were taking. Given the life threatening nature of the blood loss you suffered, it is best to stop taking coumadin for the time being, and discuss with your doctor in clinic whether it makes sense to restart this medication in the future You should avoid taking any NSAID medications as well. You have early signs of liver cirrhosis so it is also very important that you avoid alcohol and lose weight, as obesity is damaging to the liver as well. Make an appointment with Dr Mireles in clinic in the coming weeks Please return to the hospital if you have any concerning symptoms or if your bleeding recurs It has been a pleasure taking care of you Primary Care Provider Not On Staff Doctor Time spent on discharge: > 30 minutes Pending Labs Laboratory Tests Test 07/02/17 17:44 07/02/17 21:13 07/03/17 07:27 07/03/17 07:46 Bedside Glucose 137mg/dL (70-220) 137mg/dL (70-220) 120mg/dL (70-220) White Blood Count 11.010^3/ul (4.8-10.8) Red Blood Count 2.8510^6/ul (4.70-6.10) Hemoglobin 9.1g/dl (14.0-18.0) Hematocrit 26.6% (42.0-52.0) Mean Corpuscular Volume 93.3fl (82.0-101.0) Mean Corpuscular Hemoglobin 31.9pg (29.0-33.0) Mean Corpuscular Hemoglobin Concent 34.2g/dl (32.0-37.0) Red Cell Distribution Width 13.5% (11.5-14.5) Platelet Count 69808^3/UL (140-415) Mean Platelet Volume 9.8fl (7.4-10.4) Neutrophils % 62.8% (39.0-77.0) Lymphocytes % 19.3% (15.0-51.0) Monocytes % 10.8% (0.0-11.0) Eosinophils % 3.5% (0.0-7.0) Basophils % 0.5% (0.0-2.0) Nucleated Red Blood Cells % 0.3/100WBC (0.0-0.0) Neutrophils # 6.910^3/ul (1.6-7.5) Lymphocytes # 2.110^3/ul (0.8-2.9) Monocytes # 1.210^3/ul (0.3-0.9) Eosinophils # 0.410^3/ul (0.0-0.5) Basophils # 0.110^3/ul (0.0-0.1) Nucleated Red Blood Cells # 0.010^3/ul (0.0-0.0) Prothrombin Time 10.8Sec (12.2-14.2) Prothrombin Time Ratio 0.8 INR International Normalized Ratio 0.78 Sodium Level 140mmol/L (135-144) Potassium Level 3.4mmol/L (3.5-5.1) Chloride Level 105mmol/L (97-110) Carbon Dioxide Level 31mmol/L (21-31) Anion Gap 7 (8-16) Blood Urea Nitrogen 11mg/dl (7-20) Creatinine 0.72mg/dl (0.61-1.24) Glucose Level 110mg/dl (70-220) Calcium Level 7.8mg/dl (8.4-10.2) Total Bilirubin 0.2mg/dl (0.2-1.3) Direct Bilirubin 0.00mg/dl (0.00-0.20) Indirect Bilirubin 0.2mg/dl (0-1.1) Aspartate Amino Transf (AST/SGOT) 31IU/L (15-46) Alanine Aminotransferase (ALT/SGPT) 42IU/L (13-69) Alkaline Phosphatase 74IU/L (42-121) Total Protein 5.6g/dl (6.1-8.1) Albumin 3.0g/dl (3.3-4.9) Globulin 2.60g/dl (1.3-3.2) Albumin/Globulin Ratio 1.15 Test 07/03/17 11:46 Bedside Glucose 115mg/dL (70-220) MCKENZIE BONILLA MD Jul 03, 2017 12:13
--- NOTE | 2017-07-03 14:03 | PN ---
Date/Time of Note Date/Time of Note DATE: 07/03/17 TIME: 14:02 Assessment/Plan VTE Prophylaxis VTE Prophylaxis Intervention: SCD's Lines/Catheters IV Catheter Type (from Nrs): PICC Line Central line still needed: No Urinary Cath still in place: No Assessment/Plan Chief Complaint/Hosp Course Assessment * Anemia EGD Grade I/IV esophageal varices with no stigmata of recent bleeding Moderate distal esophagitis. No evidence of active or recent bleeding Moderate gastritis. No evidence of active or recent bleeding Normal duodenum and second portion of the duodenum * Per sedation respiratory insufficiency, post intubation Plan * Agree with outpatient management * Consider CT enterography as an outpatient Subjective 24 Hr Interval Summary Free Text/Dictation * Course reviewed with RN * patient seen and examined * No further bleeding * Hemoglobin now is stable * Ideally avoid anticoagulation * Agree with outpatient management Exam Constitutional: alert, oriented Neck: non-tender, supple Respiratory: clear to auscultation, normal air movement Cardiovascular: nl pulses, regular rate and rhythm Gastrointestinal: soft Musculoskeletal: nl extremities to inspection Extremities: normal pulses Neurological: nl speech, nl strength Problems: Exam/Review of Systems Vital Signs Vitals Vital Signs Date Time Temp Pulse Resp B/P Pulse Ox O2 Delivery O2 Flow Rate FiO2 07/03/17 12:22 98 07/03/17 12:06 97.6 18 148/83 94 07/03/17 08:53 Nasal Cannula 3.0 07/03/17 01:35 21 Intake and Output 07/02/17 07/02/17 07/03/17 15:00 23:00 07:00 Intake Total 1450 ml 840 ml Output Total 1100 ml Balance 350 ml 840 ml Results Result Diagram: 07/03/17 0727 07/03/17 0727 Results 24 hrs Laboratory Tests Test 07/02/17 17:44 07/02/17 21:13 07/03/17 07:27 07/03/17 07:46 Bedside Glucose 137 137 120 White Blood Count 11.0 #H Red Blood Count 2.85 #L Hemoglobin 9.1 L Hematocrit 26.6 L Mean Corpuscular Volume 93.3 Mean Corpuscular Hemoglobin 31.9 Mean Corpuscular Hemoglobin Concent 34.2 Red Cell Distribution Width 13.5 Platelet Count 196 Mean Platelet Volume 9.8 Neutrophils % 62.8 Lymphocytes % 19.3 Monocytes % 10.8 Eosinophils % 3.5 Basophils % 0.5 Nucleated Red Blood Cells % 0.3 H Neutrophils # 6.9 Lymphocytes # 2.1 Monocytes # 1.2 H Eosinophils # 0.4 Basophils # 0.1 Nucleated Red Blood Cells # 0.0 Prothrombin Time 10.8 L Prothrombin Time Ratio 0.8 INR International Normalized Ratio 0.78 Sodium Level 140 Potassium Level 3.4 L Chloride Level 105 Carbon Dioxide Level 31 Anion Gap 7 L Blood Urea Nitrogen 11 Creatinine 0.72 Glucose Level 110 Calcium Level 7.8 L Total Bilirubin 0.2 Direct Bilirubin 0.00 Indirect Bilirubin 0.2 Aspartate Amino Transf (AST/SGOT) 31 Alanine Aminotransferase (ALT/SGPT) 42 Alkaline Phosphatase 74 Total Protein 5.6 L Albumin 3.0 L Globulin 2.60 Albumin/Globulin Ratio 1.15 Test 07/03/17 11:46 Bedside Glucose 115 Medications Medications Current Medications Atorvastatin Calcium (Lipitor) 10 mg QHS PO Last administered on 07/02/17 21: 07; Admin Dose 10 MG; Start 06/29/17 at 21:00 Oxycodone/ Acetaminophen (Percocet (5/ 325)) 1 tab Q6H PRN PO MODERATE PAIN LEVEL 4-6 Last administered on 07/03/17 12:36; Admin Dose 1 TAB; Start at 18:30 Diagnostic Test (Pha) (Accu-Chek) 1 ea 02 XX Last administered on 06/30/17 02: 00; Admin Dose 1 EA; Start 06/30/17 at 02:00 Insulin Glargine (Lantus) 8 unit DAILY@08 SC Last administered on 07/03/17 09: 02; Admin Dose 8 UNIT; Start 06/30/17 at 08:00 Miscellaneous Information 1 ea NOTE XX ; Start 06/29/17 at 18:30 Glucose (Glutose) 15 gm Q15M PRN PO DECREASED GLUCOSE; Start 06/29/17 at 18:30 Glucose (Glutose) 22.5 gm Q15M PRN PO DECREASED GLUCOSE; Start 06/29/17 at 18: 30 Dextrose (D50w Syringe) 25 ml Q15M PRN IV DECREASED GLUCOSE; Start 06/29/17 at 18:30 Dextrose (D50w Syringe) 50 ml Q15M PRN IV DECREASED GLUCOSE; Start 06/29/17 at 18:30 Glucagon (Glucagen) 1 mg Q15M PRN IM DECREASED GLUCOSE; Start 06/29/17 at 18:30 Glucose (Glutose) 15 gm Q15M PRN BUCCAL DECREASED GLUCOSE; Start 06/29/17 at 18 :30 Ondansetron HCl (Zofran Inj) 4 mg Q6H PRN IV NAUSEA AND/OR VOMITING Last administered on 07/03/17 05:54; Admin Dose 4 MG; Start 06/30/17 at 04:00 Lorazepam (Ativan) 1 mg Q4H PRN IV anxiety Last administered on 06/30/17 13:49 ; Admin Dose 1 MG; Start 06/30/17 at 14:00 Sucralfate (Carafate) 1 gm QID PO Last administered on 07/03/17 13:09; Admin Dose 1 GM; Start 06/30/17 at 15:00 IV Flush (NS 10 ml) 10 ml PRN PRN IV IV PROTOCOL; Start 07/01/17 at 12:00 Acetaminophen (Tylenol Tab) 650 mg Q6H PRN PO PAIN AND OR ELEVATED TEMP Last administered on 07/01/17 15:44; Admin Dose 650 MG; Start 07/01/17 at 15:30 Pantoprazole (Protonix Iv) 40 mg BID@06,18 IV Last administered on 07/03/17 05 :23; Admin Dose 40 MG; Start 07/01/17 at 18:00 Phenol (Cepastat Lozenge) 1 lozenge Q2H PRN MT SORE THROAT Last administered on 07/02/17 21:07; Admin Dose 1 LOZENGE; Start 07/02/17 at 00:30 Hydromorphone HCl (Dilaudid) 1 mg Q4H PRN IV SEVERE PAIN LEVEL 7-10 Last administered on 07/03/17 08:42; Admin Dose 1 MG; Start 07/02/17 at 14:30 PRITI BROWN MD Jul 03, 2017 14:03
== END 2017-07-03 13:35 | disposition home or self-care (01) | DRG 378 ==
LOC: E/R 12:38 → TEL 16:24 → ICU 06-30 10:04 → TEL 07-01 17:33
PROVIDERS: ADMIT Internal Medicine; ATTEND Internal Medicine
PROC: 30233K1 Transfusion of Nonautologous Frozen Plasma into Peripheral Vein, Percutaneous Approach (ICD-10-PCS; 2017-06-30)
PROC: 30233N1 Transfusion of Nonautologous Red Blood Cells into Peripheral Vein, Percutaneous Approach (ICD-10-PCS; 2017-06-30)
PROC: 0DJ08ZZ Inspection of Upper Intestinal Tract, Via Natural or Artificial Opening Endoscopic (ICD-10-PCS; principal; 2017-06-30 17:30)
PROC: 30233N1 Transfusion of Nonautologous Red Blood Cells into Peripheral Vein, Percutaneous Approach (ICD-10-PCS; 2017-07-01)
DX: K92.2 Gastrointestinal hemorrhage, unspecified (principal); D68.59 Other primary thrombophilia; I48.92 Unspecified atrial flutter; D62 Acute posthemorrhagic anemia; T45.515A Adverse effect of anticoagulants, initial encounter; T39.395A Adverse effect of other nonsteroidal anti-inflammatory drugs [NSAID], initial encounter; Y92.230 Patient room in hospital as the place of occurrence of the external cause; K20.9 Esophagitis, unspecified; K29.70 Gastritis, unspecified, without bleeding; E66.9 Obesity, unspecified; Z68.34 Body mass index [BMI] 34.0-34.9, adult; Z79.01 Long term (current) use of anticoagulants; Z87.891 Personal history of nicotine dependence; Z86.711 Personal history of pulmonary embolism
CPT/HCPCS: 31500; 36415; 36430; 36569; 36600; 71010; 71275; 76937; 78278; 80048; 80053; 80306; 80307; 81001; 82270; 82803; 82962; 83036; 83605; 83735; 83880; 84439; 84443; 84484; 85014; 85018; 85025; 85610; 85730; 86140; 86644; 86850; 86900; 86901; 86920; 87040; 87045; 87086; 87205; 92950; 93005; 93306; 94664; 94770; 96374; 96375; A9560; C9113; J0153; J0171; J1170; J1200; J1815; J1885; J1956; J2060; J2270; J2370; J2405; J2724; J7030; J7040; J7999; P9016; P9059; Q9967

== ENCOUNTER 2017-07-13 11:00 | Inpatient (IN) | payer BC, MEDICAID ==
[~2017-07-13] VITALS: Ht 177.8 cm; Wt 113.5 kg
[~2017-07-13 11:00] MED LIST: ALBU18HF INHALATION; AMLO-147 PO; ATOR10TA65 PO; BENZ100C70 PO; CITA-104 PO; LISI10TA2 PO; OMEP20CA16 PO
[2017-07-13] MEDS ORDERED: FAMOTIDINE 20 MG INJ INJ STA (12:15)
[2017-07-13] MEDS ORDERED: SOD CHLORIDE 0.9% 500 ML IV STA (12:15)
[2017-07-13] MEDS ORDERED: ONDANSETRON 4 MG INJ IV STA (12:27)
--- NOTE | 2017-07-13 12:29 | ERA ---
ER Documentation Chief Complaint Date/Time DATE: 07/13/17 TIME: 12:25 Chief Complaint RB, CP since this AM, recently dc'd from ICU for RB (with code) HPI 89-year-old male presents with substernal chest pain for the last 4 hours as well as rectal bleeding that began today as well. Is abdominal pain also generalized described as an aching pain. He had recently been discharged for rectal bleeding. An EGD and colonoscopy was performed according to EMR view with no source of bleeding found. Patient also feels generally weak, sick and lightheaded. Mild shortness of breath as well as nausea without vomiting. ROS All systems reviewed and are negative except as per history of present illness. Medications Home Meds Active Scripts Omeprazole* (Omeprazole*) 20 Mg Capsule.dr, 20 MG PO DAILY for 30 Days, #30 CAP Prov:MCKENZIE BONILLA MD 07/03/17 Reported Medications Benzonatate* (Tessalon Perle*) 100 Mg Capsule, 100 MG PO Q8H Y for COUGH, CAP 06/29/17 Lisinopril* (Lisinopril*) 10 Mg Tablet, 10 MG PO DAILY, #30 TAB 06/29/17 Atorvastatin Calcium (Atorvastatin Calcium) 10 Mg Tablet, 10 MG PO QHS, #30 TAB 06/29/17 Albuterol Sulfate* (Ventolin HFA*) 18 Gm Hfa.aer.ad, 2 PUFF INHALATION Q4H Y for WHEEZING AND SOB, #1 INHALER 06/29/17 Citalopram Hydrobromide* (Citalopram Hydrobromide*) 40 Mg Tablet, 40 MG PO DAILY , #30 TAB 06/29/17 Amlodipine Besylate* (Amlodipine Besylate*) 10 Mg Tablet, 10 MG PO DAILY, #30 TAB 06/29/17 Allergies Allergies: Coded Allergies: morphine (Verified Allergy, Severe, 06/30/17) PMhx/Soc History of Surgery: No Anesthesia Reaction: No Hx Neurological Disorder: No Hx Respiratory Disorders: Yes (SOB AT REST, PULMONARY EMBOLISM X2) Hx Cardiac Disorders: Yes (HTN, A-FLUTTER) Hx Psychiatric Problems: No Hx Miscellaneous Medical Probl: Yes (OBESITY) Hx Alcohol Use: No Hx Substance Use: No Hx Tobacco Use: No Physical Exam Vitals Vital Signs Date Time Temp Pulse Resp B/P Pulse Ox O2 Delivery O2 Flow Rate FiO2 07/13/17 11:13 98.3 119 20 141/88 100 Physical Exam Const: [] Moderate distress, appears uncomfortable. Head: Atraumatic Eyes: Normal Conjunctiva ENT: Normal External Ears, Nose and Mouth. Neck: Full range of motion.. Resp: Clear to auscultation bilaterally Cardio: Regular tachycardia, no murmurs Abd: Soft, mild generalized tenderness without guarding or rebound, non distended. Normal bowel sounds Skin: No petechiae or rashes Back: No midline or flank tenderness Ext: No cyanosis, or edema Neur: Awake and alert oriented 3, no focal deficit Psych: Normal Mood and Affect Results 24 hrs Current Medications Medications (Trade) Dose Ordered Sig/Vicenta Route PRN Reason Start Time Stop Time Status Last Admin Dose Admin Sodium Chloride (NS) 500 ml @ 500 mls/hr Q1H STAT IV 07/13/17 12:15 07/13/17 13:14 Famotidine (Pepcid Iv) 20 mg ONCE STAT INJ 07/13/17 12:15 07/13/17 12:17 DC Procedures/MDM EKG interpretation: Sinus tachycardia rate of 111, normal axis, normal intervals , no ST-T wave changes concerning for acute ischemia. MARIELLE FLANNERY DO Jul 13, 2017 12:29
[2017-07-13 12:50] LABS: BASOPHIL # 0.1 10^3/ul (0.0-0.1); BASOPHILS % 0.8 % (0.0-2.0); EOSINOPHILS % 0.4 % (0.0-7.0); HEMATOCRIT 36.6 % (42.0-52.0); HEMOGLOBIN 11.7 g/dl (14.0-18.0); LYMPHOCYTES # 1.1 10^3/ul (0.8-2.9); LYMPHOCYTES % 15.7 % (15.0-51.0); MEAN CORPUSCULAR HEMOGLOBIN 29.2 pg (29.0-33.0); MEAN CORPUSCULAR VOLUME 91.3 fl (82.0-101.0); MEAN PLATELET VOLUME 9.8 fl (7.4-10.4); MONOCYTE # 0.5 10^3/ul (0.3-0.9); MONOCYTES % 7.4 % (0.0-11.0); NEUTROPHIL # 5.4 10^3/ul (1.6-7.5); NEUTROPHILS % 75.4 % (39.0-77.0); POSITIVE DIFF @See below; RED BLOOD COUNT 4.01 10^6/ul (4.70-6.10); RED CELL DISTRIBUTION WIDTH 13.6 % (11.5-14.5); WHITE BLOOD COUNT 7.2 10^3/ul (4.8-10.8)
[2017-07-13 13:00] LABS: PLATELET COUNT 423 10^3/UL (140-415)
[2017-07-13 13:05] LABS: INR 0.98
[2017-07-13 13:07] LABS: ALANINE AMINOTRANSFERASE 34 IU/L (13-69); ALBUMIN 4.3 g/dl (3.3-4.9); ALBUMIN/GLOBULIN RATIO 1.34; ALKALINE PHOSPHATASE 82 IU/L (42-121); ANION GAP 14 (8-16); ASPARTATE AMINO TRANSFERASE 39 IU/L (15-46); BILIRUBIN,INDIRECT 0.6 mg/dl (0-1.1); BILIRUBIN,TOTAL 0.6 mg/dl (0.2-1.3); BLOOD UREA NITROGEN 10 mg/dl (7-20); CALCIUM 8.9 mg/dl (8.4-10.2); CARBON DIOXIDE 25 mmol/L (21-31); CHLORIDE 108 mmol/L (97-110); CREATININE 0.78 mg/dl (0.61-1.24); GLUCOSE 118 mg/dl (70-220); PARTIAL THROMBOPLASTIN TIME 20.7 Sec (25.0-35.0); POTASSIUM 3.9 mmol/L (3.5-5.1); SODIUM 143 mmol/L (135-144); TOTAL PROTEIN 7.5 g/dl (6.1-8.1)
--- NOTE | 2017-07-13 13:16 | RADRPT ---
PROCEDURE: XR Chest. CLINICAL INDICATION: chest pain, upper GI bleed TECHNIQUE: Single frontal view of the chest was obtained COMPARISON: DR VILLARREAL CHEST 07/01/2017 FINDINGS: The heart and mediastinum are within normal limits. The right-sided PICC line has been removed. The lungs are clear. There is no pleural effusion or pneumothorax. RPTAT: AA IMPRESSION: No acute disease. .Ranjan Guerra MD, MD Date Time Electronically viewed and signed by .Ranjan Guerra MD, on 07/13/2017 13:16 .S/
[2017-07-13 13:23] LABS: TROPONIN-I < 0.012 ng/ml (0.00-0.12)
[2017-07-13] MEDS ORDERED: ASPIRIN 81 MG TAB PO ONE (13:30)
[2017-07-13] MEDS ORDERED: LIDOCAINE/MYLANTA 40 ML BTL PO ONE (13:30)
[2017-07-13] MEDS ORDERED: FENTAnyl 50 MCG/ML VIAL IV ONE ×3 (13:30→19:00)
[2017-07-13] MEDS ORDERED: SOD CHLORIDE 0.9% 1,000 ML IV ONE ×2 (14:00→14:30)
[2017-07-13] MEDS ORDERED: IOHEXOL 100 ML ONE (14:11)
[2017-07-13] MEDS ORDERED: SOD CHLORIDE 0.9% 100 ML ONE (14:11)
[2017-07-13] MEDS ORDERED: IOHEXOL 350MG/ML 50 ML BTL ONE (14:11)
--- NOTE | 2017-07-13 14:40 | RADRPT ---
PROCEDURE: CTA Chest with contrast and with 3-D reconstructions CLINICAL INDICATION: Tachycardia, chest pain, protein S deficiency TECHNIQUE: The study was performed utilizing multidetector CT scanner. Direct spiral axial section s were obtained from the thoracic inlet to the upper abdomen with the use of intravenous contrast ma terial (125 cc of Omnipaque 350). Sagittal, coronal and 3-D reformations were obtained. The images w ere reviewed on a PACS workstation. DLP 900.85 mGycm CTDIvol 7.04, 21.13, 20 point 12th mGy One or more of the following dose reduction techniques were used: - Automated exposure control. - Adjustment of the mA and/or kV according to patient size. - Use of iterative reconstruction technique. COMPARISON: CTA chest from 06/29/2017 FINDINGS: There are no pulmonary emboli. The lungs are clear. There is no pleural fluid. There is no pneumothorax. Heart size is within normal limits. There is no pericardial fluid. The aorta is within normal limi ts. A bovine arch is noted. There are no enlarged axillary or mediastinal lymph nodes. The visualized portions of the upper abdomen are unremarkable. Osseous and soft tissue structures are within normal limits. IMPRESSION: No CT evidence for pulmonary embolus. Clear lungs. RPTAT: EE Physician Rosaura Date Time Electronically viewed and signed by Physician Rosaura on 07/13/2017 14:40 /
[2017-07-13] MEDS ORDERED: HYDROCODONE/APAP (10/325) TAB PO ONE (16:00)
[2017-07-13] MEDS ORDERED: ACETAMINOPHEN 325 MG TAB PO PRN ×2 (16:30→18:00)
[2017-07-13] MEDS ORDERED: ONDANSETRON 4 MG INJ IV PRN (16:30)
--- NOTE | 2017-07-13 17:41 | HP ---
Date/Time of Note Date/Time of Note DATE: 07/13/17 TIME: 17:40 Assessment/Plan VTE Prophylaxis VTE Prophylaxis Intervention: SCD's Assessment/Plan Assessment/Plan 51 yo M with protein S deficiency recent admission for SOB with hospitalization notable for massive hematemesis found to have proximal small bowel bleed, EVs, gastritis, esophagitis here with c/o abd pain with lactate minimally elevated. Hgb 11s Etio unclear. No fever or leukocytosis to suggest sepsis therefore no compelling indication to start abx. Will start with volume resuscitation and serial CBCs. Consider mesenteric ischemia as ATC recently stopped? though review of the literature shows that is quite rare. No c/o hematemesis at this time. Unlikely variceal bleed given only grade I/IV on recent EGD PLAN volume resuscitation pain control hemograms consider GI eval in AM GI note makes mention of outpatient enterography. Consider as inpatient order pending results of above NPO for now HPI/ROS Admit Date/Time Admit Date/Time Hx of Present Illness CC abd pain x 1 day HPI 51 yo M with pmhx obesity, HTN, PEs x 2 2/2 protein S deficiency last admitted 2 weeks ago for SOB. Had massive hematemesis with hgb drop from 12 to 5. GI work up notable for tagged RBC scan localized bleeding source to proximal small bowel. EGD with gastritis/esophagitis/EVs but no active bleeding. Coumadin stopped, PPI started. Pt states since discharge from the hospital he's had a hacking nonproductive cough and nasal congestion. No chest pain. This morning started having severe lower abd pain. Poor appetite x 2 days. Also reports dark BM today. In the ER pt noted to be tachy and diaphoretic. PMHx, ROS as per HPI Soc Hx: lives in the community Meds reviewed PMH/Family/Social Past Surgical History Past Surgical Hx: no surgical history Social History Smoking Status: Never smoker Exam/Review of Systems Vital Signs Vitals Vital Signs Date Time Temp Pulse Resp B/P Pulse Ox O2 Delivery O2 Flow Rate FiO2 07/13/17 16:41 99 17 122/70 98 Nasal Cannula 2.0 07/13/17 11:13 98.3 Exam Exam anxious MMM EOMI tachy, no mrg lungs clear abd soft no edema no rashes hgb 11s, CTA chest reviewed-->lungs clear lactic acid 2.5 Labs Result Diagram: 07/13/17 1225 07/13/17 1225 LACEY GARDINER MD Jul 13, 2017 17:41
[2017-07-13] MEDS ORDERED: ALBUTEROL 18 GM INHALER INH PRN (18:00)
[2017-07-13] MEDS ORDERED: BENZONATATE 100 MG CAP PO PRN (18:00)
[2017-07-13] MEDS ORDERED: NACL 0.9% 3 ML SYG IV SCH (18:00)
[2017-07-13] MEDS ORDERED: DIPHENHYDRAMINE 50 MG CAP PO PRN (18:30)
[2017-07-13] MEDS: HYDROmorphONE 1 MG/ML SYG IV PRN ×2 (18:36→22:31)
[2017-07-13 18:43] LABS: HEMATOCRIT 31.6 % (42.0-52.0); HEMOGLOBIN 10.3 g/dl (14.0-18.0)
[2017-07-13 19:09] LABS: BARBITURATES Negative (NEGATIVE); BENZODIAZEPINES Negative (NEGATIVE); CANNABINOIDS Negative (NEGATIVE); COCAINE Negative (NEGATIVE); OPIATES Negative (NEGATIVE)
[2017-07-13 19:52] VITALS: PULSE 100
[2017-07-13 20:01] VITALS: PULSE 104
[2017-07-13 20:17] VITALS: BP 140/73; RESP 21
[2017-07-13] MEDS: HYDROCODONE/APAP (5/325) TAB PO PRN (20:28)
[2017-07-13 20:30] VITALS: Ht 177.8 cm; Wt 113.5 kg
[2017-07-13] MEDS: SOD CHLORIDE 0.9% 1,000 ML IV SCH ×2 (20:30→22:30)
[2017-07-13] MEDS: ATORVASTATIN 10 MG TAB PO SCH (21:00)
[2017-07-14] VITALS (12 sets, daily range): BP systolic 126–149; BP diastolic 59–83; PULSE 75–122; RESP 18–21
[2017-07-14 01:10] LABS: HEMATOCRIT 31.5 % (42.0-52.0); HEMOGLOBIN 10.2 g/dl (14.0-18.0)
[2017-07-14] MEDS: SOD CHLORIDE 0.9% 1,000 ML IV SCH ×3 (02:00→20:40)
[2017-07-14] MEDS: HYDROmorphONE 1 MG/ML SYG IV PRN ×6 (02:10→22:00)
[2017-07-14] MEDS ORDERED: PANTOPRAZOLE (EC) 40 MG TAB PO SCH (06:00)
[2017-07-14] MEDS: PANTOPRAZOLE 40 MG INJ IV SCH ×2 (06:40→17:53)
[2017-07-14 09:05] LABS: BASOPHIL # 0.1 10^3/ul (0.0-0.1); BASOPHILS % 0.7 % (0.0-2.0); EOSINOPHILS # 0.2 10^3/ul (0.0-0.5); EOSINOPHILS % 2.3 % (0.0-7.0); HEMATOCRIT 32.2 % (42.0-52.0); HEMOGLOBIN 10.1 g/dl (14.0-18.0); LYMPHOCYTES # 1.8 10^3/ul (0.8-2.9); LYMPHOCYTES % 26.3 % (15.0-51.0); MEAN CORPUSCULAR HEMOGLOBIN 28.9 pg (29.0-33.0); MEAN CORPUSCULAR HGB CONC 31.4 g/dl (32.0-37.0); MEAN CORPUSCULAR VOLUME 92.3 fl (82.0-101.0); MEAN PLATELET VOLUME 8.7 fl (7.4-10.4); MONOCYTE # 0.8 10^3/ul (0.3-0.9); MONOCYTES % 11.4 % (0.0-11.0); NEUTROPHIL # 4.1 10^3/ul (1.6-7.5); NEUTROPHILS % 58.9 % (39.0-77.0); PLATELET COUNT 515 10^3/UL (140-415); RED BLOOD COUNT 3.49 10^6/ul (4.70-6.10); RED CELL DISTRIBUTION WIDTH 13.6 % (11.5-14.5)
[2017-07-14 09:28] LABS: CALCIUM 8.6 mg/dl (8.4-10.2); CREATININE 0.74 mg/dl (0.61-1.24)
[2017-07-14] MEDS: AMLODIPINE 10 MG TAB PO SCH (09:32)
[2017-07-14] MEDS: LISINOPRIL 10 MG TAB PO SCH (09:32)
[2017-07-14] MEDS: CITALOPRAM 20 MG TAB PO SCH (09:33)
[2017-07-14 12:07] LABS: HEMATOCRIT 33.7 % (42.0-52.0); HEMOGLOBIN 10.8 g/dl (14.0-18.0)
--- NOTE | 2017-07-14 16:26 | PN ---
Date/Time of Note Date/Time of Note DATE: 07/14/17 TIME: 16:25 Assessment/Plan VTE Prophylaxis VTE Prophylaxis Intervention: other Lines/Catheters IV Catheter Type (from Nrs): Peripheral IV Assessment/Plan Chief Complaint/Hosp Course 51 yo male with h/o PE and recent massive GIB of unclear etiology while on AC who again presents with hematochezia - Consideration of colonsocopy per Dr Mireles - HD stable, no futher bleeidng - Contniue to monitor Problems: Subjective 24 Hr Interval Summary Free Text/Dictation No further episodes of melena or hematochezia Complains of mild cramping in lower abdomen Exam/Review of Systems Vital Signs Vitals Vital Signs Date Time Temp Pulse Resp B/P Pulse Ox O2 Delivery O2 Flow Rate FiO2 07/14/17 16:24 79 07/14/17 16:08 98.1 19 126/75 98 07/14/17 10:44 Nasal Cannula 2.0 Intake and Output 07/13/17 07/13/17 07/14/17 15:00 23:00 07:00 Intake Total 2500 ml 50 ml Output Total 1200 ml Balance 2500 ml -1150 ml Exam Constitutional: alert, oriented, well developed Psych: nl mood/affect, no complaints Head: atraumatic, normocephalic Eyes: EOMI, PERRL, nl conjunctiva, nl lids, nl sclera ENMT: nl external ears & nose, nl lips & teeth, nl nasal mucosa & septum Neck: non-tender, supple Respiratory: clear to auscultation, normal air movement Cardiovascular: nl pulses, regular rate and rhythm Gastrointestinal: nl liver, spleen, non-tender, soft Musculoskeletal: nl extremities to inspection, nl gait and stance Extremities: normal pulses Neurological: MOLDED [employer] INSPECTOR II-XII intact, nl mental status, nl speech, nl strength Skin: nl turgor, No rash or lesions Lymph: nl lymph nodes Results Result Diagram: 07/14/17 1139 07/14/17 0756 Results 24 hrs Laboratory Tests Test 07/13/17 18:30 07/14/17 00:45 07/14/17 07:56 07/14/17 11:39 Hemoglobin 10.3 L 10.2 L 10.1 L 10.8 L Hematocrit 31.6 L 31.5 L 32.2 L 33.7 L Urine Opiates Screen Negative Urine Barbiturates Negative Urine Amphetamines Screen Negative Urine Benzodiazepines Screen Negative Urine Cocaine Screen Negative Urine Cannabinoids Negative White Blood Count 7.0 Red Blood Count 3.49 L Mean Corpuscular Volume 92.3 Mean Corpuscular Hemoglobin 28.9 L Mean Corpuscular Hemoglobin Concent 31.4 L Red Cell Distribution Width 13.6 Platelet Count 515 #H Mean Platelet Volume 8.7 Neutrophils % 58.9 Lymphocytes % 26.3 Monocytes % 11.4 H Eosinophils % 2.3 Basophils % 0.7 Nucleated Red Blood Cells % 0.0 Neutrophils # 4.1 Lymphocytes # 1.8 Monocytes # 0.8 Eosinophils # 0.2 Basophils # 0.1 Nucleated Red Blood Cells # 0.0 Sodium Level 141 Potassium Level 4.0 Chloride Level 107 Carbon Dioxide Level 27 Anion Gap 11 Blood Urea Nitrogen 11 Creatinine 0.74 Glucose Level 124 Lactic Acid Level 1.4 Calcium Level 8.6 Medications Medications Current Medications Albuterol (Ventolin Hfa) 2 puff Q4H PRN INH WHEEZING AND SOB; Start 07/13/17 at 18:00 Amlodipine Besylate (Norvasc) 10 mg DAILY PO Last administered on 07/14/17 09: 32; Admin Dose 10 MG; Start 07/14/17 at 09:00 Atorvastatin Calcium (Lipitor) 10 mg QHS PO ; Start 07/13/17 at 21:00 Benzonatate (Tessalon) 100 mg Q8H PRN PO COUGH; Start 07/13/17 at 18:00 Citalopram Hydrobromide (Celexa) 40 mg DAILY PO Last administered on 07/14/17 09:33; Admin Dose 40 MG; Start 07/14/17 at 09:00 Lisinopril (Zestril) 10 mg DAILY PO Last administered on 07/14/17 09:32; Admin Dose 10 MG; Start 07/14/17 at 09:00 Acetaminophen (Tylenol Tab) 650 mg Q6H PRN PO PAIN LEVEL 1-3 OR FEVER; Start 07/13/17 at 18:00 Acetaminophen/ Hydrocodone Bitart 1 tab 1 tab Q6H PRN PO MODERATE PAIN LEVEL 4- 6 Last administered on 07/13/17 20:28; Admin Dose 1 TAB; Start 07/13/17 at 18: 00 Sodium Chloride (NS) 1,000 ml @ 100 mls/hr Q10H IV Last administered on 02:32; Admin Dose 100 MLS/HR; Start 07/13/17 at 18:00 Hydromorphone HCl (Dilaudid) 1 mg Q4 PRN IV pain Last administered on 14:01; Admin Dose 1 MG; Start 07/13/17 at 18:30 Diphenhydramine HCl (Benadryl) 50 mg Q6 PRN PO as needed for itching ; Start 07/13/17 at 18:30 Influenza Virus Vaccine (Fluzone) 0.5 ml ONCE ONCE IM* ; Start 07/15/17 at 09:00 ; Stop 07/15/17 at 09:01 Pantoprazole (Protonix Iv) 40 mg BID@06,18 IV Last administered on 07/14/17 06 :40; Admin Dose 40 MG; Start 07/14/17 at 06:30 MCKENZIE BONILLA MD Jul 14, 2017 16:26
[2017-07-14] MEDS ORDERED: MAGNESIUM CITRATE 300 ML BTL PO ONE (17:30)
[2017-07-14 18:25] LABS: HEMATOCRIT 33.5 % (42.0-52.0)
[2017-07-14] MEDS ORDERED: POLYETHYLENE GLYCOL 3350 119 GM POWDER PO ONE (18:30)
[2017-07-14] MEDS: ATORVASTATIN 10 MG TAB PO SCH (20:39)
--- NOTE | 2017-07-14 20:56 | CONS ---
Date/Time of Note Date/Time of Note DATE: 07/14/17 TIME: 20:56 Assessment/Plan Assessment/Plan Additional Assessment/Plan Impression: * GI bleeding/hematochezia * Rule out colonic pathology versus hemorrhoidal * Moderate anemia * History of small bowel bleeding etiology unclear * History of cirrhosis * Small esophageal varices * History of GERD/gastritis * Morbid obesity * Hypertension Plan: * Proceed with colonoscopy to rule out colonic sources of bleeding. * The procedure was explained to the patient including risks, benefits and alternatives. He is agreeable to proceed. Consultation Date/Type/Reason Admit Date/Time Date of Consultation: Jul 15, 2017 Type of Consultation: GI Reason for Consultation Hematochezia Hx of Present Illness 51-year-old male well-known to the GI service from previous hospitalization with significant anemia, the patient underwent endoscopic examination that showed: * Grade I/IV esophageal varices with no stigmata of recent bleeding * Moderate distal esophagitis. No evidence of active or recent bleeding * Moderate gastritis. No evidence of active or recent bleeding * Normal duodenum and second portion of the duodenum * The patient required endotracheal intubation due to desaturation post procedure The patient underwent nuclear medicine bleeding scan which appeared to show evidence of bleeding in the small bowel. The bleeding subsided, the patient recovered smoothly from post sedation respiratory insufficiency and was extubated. Eventually he was discharged on PPIs. He presents on this occasion with an episode of hematochezia of small to moderate amounts. There is no associated hematemesis or melena. Hemoglobin is actually adequate. Patient denies any other gastrointestinal symptomatology. The patient will be evaluated with colonoscopy and further recommendations will depend on our findings as well as patient's clinical course Review of Systems: [A 12 system, review was conducted and is negative except as noted in the HPI or here.] Gastrointestinal and liver: [As noted in HPI] Psychological: nl mood/affect, no complaints Past Medical History GI bleeding Possible small bowel source Probable cirrhosis of liver Morbid obesity Hypertension Past Surgical History Past Surgical Hx: no surgical history Family History Significant Family History: no pertinent family hx Social History Alcohol Use: occasionally Smoking Status: Former smoker Drug Use: none Exam/Review of Systems Vital Signs Vitals Vital Signs Date Time Temp Pulse Resp B/P Pulse Ox O2 Delivery O2 Flow Rate FiO2 07/14/17 20:19 122 07/14/17 19:56 98.5 18 149/79 97 07/14/17 10:44 Nasal Cannula 2.0 Intake and Output 07/13/17 07/13/17 07/14/17 15:00 23:00 07:00 Intake Total 2500 ml 50 ml Output Total 1200 ml Balance 2500 ml -1150 ml Exam PHYSICAL EXAMINATION: GENERAL: Well developed, well nourished, fairly obese, alert & oriented x 3, in no acute distress SKIN: No lesions, no stigmata chronic liver disease, no evidence of bleeding diathesis LYMPHATIC: No palpable lymphadenopathy. HEAD: Normocephalic, atraumatic, no tenderness. EYES: Pupils equal reactive to light and accommodation, full extraocular movements, sclera clear, non-icteric, no discharge. EARS/NOSE AND THROAT: Ears normal, nose normal, oropharynx normal, oral membranes well hydrated without lesions. NECK: Supple, no masses, thyroid normal, JVP within normal limits, carotids normal without bruits. CHEST: Inspection within normal limits. CARDIOVASCULAR: Heart: Regular rate and rhythm, no murmurs, gallops or rubs. Peripheral pulses present within normal limits, no cyanosis, clubbing or edemas. No pulsatile abdominal mass RESPIRATORY: Lungs clear to auscultation and percussion, no wheezing, no rubs GASTROINTESTINAL AND LIVER: Abdomen: Soft, non tenderness, non-distended, no hernias, no masses, no organomegaly, no ascites, no guarding, no rebound tenderness, normoactive bowel sounds. Rectal: Deferred. GENITOURINARY: [Male genitalia within normal limits.] EXTREMITIES: No cyanosis, clubbing or edema. [MUSCULO-SKELETAL: Gait and station within normal limits, range of motion adequate.] [NEUROLOGIC: Cranial nerves II-XII intact, Motor within normal limits, Sensory within normal limits. Reflexes within normal limits. PSYCHIATRIC: Alert & oriented x 3, mood/affect/judgement adequate] Results Result Diagram: 07/14/17 1802 07/14/17 0756 Results 24 hrs Laboratory Tests Test 07/14/17 00:45 07/14/17 07:56 07/14/17 11:39 07/14/17 18:02 Hemoglobin 10.2 L 10.1 L 10.8 L 11.0 L Hematocrit 31.5 L 32.2 L 33.7 L 33.5 L White Blood Count 7.0 Red Blood Count 3.49 L Mean Corpuscular Volume 92.3 Mean Corpuscular Hemoglobin 28.9 L Mean Corpuscular Hemoglobin Concent 31.4 L Red Cell Distribution Width 13.6 Platelet Count 515 #H Mean Platelet Volume 8.7 Neutrophils % 58.9 Lymphocytes % 26.3 Monocytes % 11.4 H Eosinophils % 2.3 Basophils % 0.7 Nucleated Red Blood Cells % 0.0 Neutrophils # 4.1 Lymphocytes # 1.8 Monocytes # 0.8 Eosinophils # 0.2 Basophils # 0.1 Nucleated Red Blood Cells # 0.0 Sodium Level 141 Potassium Level 4.0 Chloride Level 107 Carbon Dioxide Level 27 Anion Gap 11 Blood Urea Nitrogen 11 Creatinine 0.74 Glucose Level 124 Lactic Acid Level 1.4 Calcium Level 8.6 Medications Medications Current Medications Albuterol (Ventolin Hfa) 2 puff Q4H PRN INH WHEEZING AND SOB; Start 07/13/17 at 18:00 Amlodipine Besylate (Norvasc) 10 mg DAILY PO Last administered on 07/14/17 09: 32; Admin Dose 10 MG; Start 07/14/17 at 09:00 Atorvastatin Calcium (Lipitor) 10 mg QHS PO Last administered on 07/14/17 20: 39; Admin Dose 10 MG; Start 07/13/17 at 21:00 Benzonatate (Tessalon) 100 mg Q8H PRN PO COUGH; Start 07/13/17 at 18:00 Citalopram Hydrobromide (Celexa) 40 mg DAILY PO Last administered on 07/14/17 09:33; Admin Dose 40 MG; Start 07/14/17 at 09:00 Lisinopril (Zestril) 10 mg DAILY PO Last administered on 07/14/17 09:32; Admin Dose 10 MG; Start 07/14/17 at 09:00 Acetaminophen (Tylenol Tab) 650 mg Q6H PRN PO PAIN LEVEL 1-3 OR FEVER; Start 07/13/17 at 18:00 Acetaminophen/ Hydrocodone Bitart 1 tab 1 tab Q6H PRN PO MODERATE PAIN LEVEL 4- 6 Last administered on 07/13/17 20:28; Admin Dose 1 TAB; Start 07/13/17 at 18: 00 Sodium Chloride (NS) 1,000 ml @ 100 mls/hr Q10H IV Last administered on 10/5/ 17at 20:40; Admin Dose 100 MLS/HR; Start 07/13/17 at 18:00 Hydromorphone HCl (Dilaudid) 1 mg Q4 PRN IV pain Last administered on 17:53; Admin Dose 1 MG; Start 07/13/17 at 18:30 Diphenhydramine HCl (Benadryl) 50 mg Q6 PRN PO as needed for itching ; Start 07/13/17 at 18:30 Influenza Virus Vaccine (Fluzone) 0.5 ml ONCE ONCE IM* ; Start 07/15/17 at 09:00 ; Stop 07/15/17 at 09:01 Pantoprazole (Protonix Iv) 40 mg BID@06,18 IV Last administered on 07/14/17 17 :53; Admin Dose 40 MG; Start 07/14/17 at 06:30 PRITI BROWN MD Jul 14, 2017 20:56
[2017-07-14] MEDS ORDERED: BISACODYL (EC) 5 MG TAB PO ONE (21:00)
[2017-07-15] VITALS (18 sets, daily range): BP systolic 112–152; BP diastolic 55–88; PULSE 78–102; RESP 10–22
[2017-07-15 01:21] LABS: HEMATOCRIT 32.1 % (42.0-52.0); HEMOGLOBIN 10.5 g/dl (14.0-18.0)
[2017-07-15] MEDS: HYDROmorphONE 1 MG/ML SYG IV PRN ×6 (01:59→22:06)
[2017-07-15] MEDS: PANTOPRAZOLE 40 MG INJ IV SCH ×2 (05:49→18:07)
[2017-07-15] MEDS ORDERED: POLYETHYLENE GLYCOL 3350 119 GM POWDER PO ONE (06:00)
[2017-07-15] MEDS: SOD CHLORIDE 0.9% 1,000 ML IV SCH ×2 (07:36→17:36)
[2017-07-15] MEDS ORDERED: BISACODYL (EC) 5 MG TAB PO ONE (08:00)
[2017-07-15 08:29] LABS: HEMATOCRIT 33.6 % (42.0-52.0); HEMOGLOBIN 10.9 g/dl (14.0-18.0)
[2017-07-15] MEDS: CITALOPRAM 20 MG TAB PO SCH (08:56)
[2017-07-15] MEDS: AMLODIPINE 10 MG TAB PO SCH (08:57)
[2017-07-15] MEDS ORDERED: INFLUENZA VIRUS VACCINE 0.5 ML (DISPENSING) IM* ONE (09:00)
[2017-07-15] MEDS: LISINOPRIL 10 MG TAB PO SCH (09:05)
[2017-07-15] MEDS: HYDROCODONE/APAP (5/325) TAB PO PRN (12:10)
--- NOTE | 2017-07-15 16:35 | PN ---
Date/Time of Note Date/Time of Note DATE: 07/15/17 TIME: 16:32 Assessment/Plan VTE Prophylaxis VTE Prophylaxis Intervention: SCD's Lines/Catheters IV Catheter Type (from Nrs): Peripheral IV Assessment/Plan Chief Complaint/Hosp Course 51 yo male with h/o PE and recent massive GIB of unclear etiology while on AC who again presents with hematochezia - Colonsocopy per Dr Mireles - HD stable, no futher bleeidng - Contniue to monitor h/o PE: - Holding AC given bleeding Obestiy - Weight loss advised CASTANEDA earyl cirrhosis Dipso likely tomorrow Problems: Subjective 24 Hr Interval Summary Free Text/Dictation Awaiting colonscopy today No further bleeding Exam/Review of Systems Vital Signs Vitals Vital Signs Date Time Temp Pulse Resp B/P Pulse Ox O2 Delivery O2 Flow Rate FiO2 07/15/17 15:23 98.7 74 20 136/66 94 07/14/17 10:44 Nasal Cannula 2.0 Intake and Output 07/14/17 07/14/17 07/15/17 15:00 23:00 07:00 Intake Total 640 ml 2270 ml Output Total 2900 ml 750 ml Balance -2260 ml 1520 ml Results Result Diagram: 07/15/17 0757 07/14/17 0756 Results 24 hrs Laboratory Tests Test 07/14/17 18:02 07/15/17 00:52 07/15/17 07:57 Hemoglobin 11.0 L 10.5 L 10.9 L Hematocrit 33.5 L 32.1 L 33.6 L Medications Medications Current Medications Albuterol (Ventolin Hfa) 2 puff Q4H PRN INH WHEEZING AND SOB; Start 07/13/17 at 18:00 Amlodipine Besylate (Norvasc) 10 mg DAILY PO Last administered on 07/15/17 08: 57; Admin Dose 10 MG; Start 07/14/17 at 09:00 Atorvastatin Calcium (Lipitor) 10 mg QHS PO Last administered on 07/14/17 20: 39; Admin Dose 10 MG; Start 07/13/17 at 21:00 Benzonatate (Tessalon) 100 mg Q8H PRN PO COUGH; Start 07/13/17 at 18:00 Citalopram Hydrobromide (Celexa) 40 mg DAILY PO Last administered on 07/15/17 08:56; Admin Dose 40 MG; Start 07/14/17 at 09:00 Lisinopril (Zestril) 10 mg DAILY PO Last administered on 07/15/17 09:05; Admin Dose 10 MG; Start 07/14/17 at 09:00 Acetaminophen (Tylenol Tab) 650 mg Q6H PRN PO PAIN LEVEL 1-3 OR FEVER; Start 07/13/17 at 18:00 Acetaminophen/ Hydrocodone Bitart 1 tab 1 tab Q6H PRN PO MODERATE PAIN LEVEL 4- 6 Last administered on 07/15/17 12:10; Admin Dose 1 TAB; Start 07/13/17 at 18: 00 Sodium Chloride (NS) 1,000 ml @ 100 mls/hr Q10H IV Last administered on 20:40; Admin Dose 100 MLS/HR; Start 07/13/17 at 18:00 Hydromorphone HCl (Dilaudid) 1 mg Q4 PRN IV pain Last administered on 14:02; Admin Dose 1 MG; Start 07/13/17 at 18:30 Diphenhydramine HCl (Benadryl) 50 mg Q6 PRN PO as needed for itching Last administered on 07/15/17 02:22; Admin Dose 50 MG; Start 07/13/17 at 18:30 Pantoprazole (Protonix Iv) 40 mg BID@06,18 IV Last administered on 07/15/17 05 :49; Admin Dose 40 MG; Start 07/14/17 at 06:30 MCKENZIE BONILLA MD Jul 15, 2017 16:35
--- NOTE | 2017-07-15 17:40 | OPPN ---
Date/Time of Note Date/Time of Note DATE: 07/15/17 TIME: 17:36 Proc Note GI Procedure Date 07/15/17 Pre-procedure Diagnosis * Hematochezia Post-procedure Diagnosis Impression: * 4 mm sessile polyp sigmoid colon. Ablated * Large internal hemorrhoids * Otherwise normal colonoscopy to cecum Plan: * Review pathology as soon as available * Annual Hemoccult stool testing * Surveillance colonoscopy in 5 years * Advance diet as tolerated . Procedure Performed: Colonoscopy (Plus polyp ablation) Surgeon PRITI BROWN MD Equipment Associate none Anesthesia Type: MAC Anesthesiologist: HEBERT SAMANIEGO MD Tourniquet Time none EBL none Transfusion required none Biopsy 1: None Polyp 1: Sigmoid polyp Grafts/Implants none Tubes/Drains none Complication(s) none Pt Condition post procedure: stable Disposition: PACU Indications: other (Hematochezia) Procedure Description After informed consent, with the patient/relatives understanding the procedure, its indications and potential risks and complications, including but not limited to: Allergic reaction, bleeding, perforation, infection, and after all pertinent questions were answered to the patient's satisfaction, the patient/ relatives signed the witnessed informed consent. Following this, premedication was administered slowly IV push under careful cardiovascular and respiratory monitoring with pulse OXIMETRY, automatic blood pressure, and job compositor. Once the sedative effect was achieved, the patient was placed in the left lateral decubitus position, digital rectal examination was performed. The colonoscope was then introduced and advanced under visual control throughout all segments of the colon including: the rectum, sigmoid, descending colon, splenic flexure, transverse colon, hepatic flexure, ascending colon and finally reaching the cecum which was clearly identified by transillumination, finger indentation and the ileocecal valve. Careful examination of the mucosa of the lower gastrointestinal tract both on insertion as well as withdrawal of the instrument disclosed the following findings: PREPARATION QUALITY: [Adequate], RECTAL EXAM: The anorectal area was visualized examined and digital rectal examination performed with the following findings: No evidence of perirectal disease, no masses. COLONIC MUCOSA: The mucosa of all segments of the colon was carefully examined and showed the following findings: There is a 4 mm sessile polyp in the sigmoid colon. Ablated with biopsy forceps. There are large internal hemorrhoids probable source of bleeding. Otherwise the examined mucosa appears within normal limits. There is no evidence of inflammatory changes, diverticular formation, other neoplasms, vascular malformation, or any other abnormality. The instrument was then withdrawn, the patient tolerated the procedure well and was transferred out of the Endoscopy Suite awake and in good condition to continue recovery under observation. Copies To: CC: PRITI BROWN MD, MORDO MD Jul 15, 2017 17:40
[2017-07-15] MEDS ORDERED: PROPOFOL 40 ML ONE (17:47)
[2017-07-15] MEDS: ATORVASTATIN 10 MG TAB PO SCH (21:18)
[2017-07-16] VITALS (7 sets, daily range): BP systolic 126–146; BP diastolic 69–79; PULSE 84–105; RESP 20
[2017-07-16] MEDS: HYDROmorphONE 1 MG/ML SYG IV PRN ×3 (02:07→10:05)
[2017-07-16] MEDS: PANTOPRAZOLE 40 MG INJ IV SCH (06:16)
[2017-07-16] MEDS: SOD CHLORIDE 0.9% 1,000 ML IV SCH (06:17)
[2017-07-16] MEDS: AMLODIPINE 10 MG TAB PO SCH (09:20)
[2017-07-16] MEDS: CITALOPRAM 20 MG TAB PO SCH (09:20)
[2017-07-16] MEDS: LISINOPRIL 10 MG TAB PO SCH (09:20)
--- NOTE | 2017-07-16 12:18 | PN ---
Date/Time of Note Date/Time of Note DATE: 07/16/17 TIME: 12:14 Assessment/Plan VTE Prophylaxis VTE Prophylaxis Intervention: SCD's Lines/Catheters IV [facility] Peripheral IV Assessment/Plan Chief Complaint/Hosp Course Assessment: * GI bleeding/hematochezia Colonoscopy * 4 mm sessile polyp sigmoid colon. Ablated * Large internal hemorrhoids * Otherwise normal colonoscopy to cecum * Moderate anemia * History of small bowel bleeding etiology unclear * History of cirrhosis * Small esophageal varices * History of GERD/gastritis * Morbid obesity * Hypertension Plan: Continue present regimen Patient complaint discharge Advised to seek outpatient gastroenterology follow-up to consider capsule endoscopy given previous hospitalization showed evidence of small bowel bleeding Subjective: Course reviewed with nursing staff Patient interviewed and examined All labs, imaging and other results reviewed The patient is comfortable No evidence of overt gastrointestinal bleeding H&H stable Being discharged today Exam: General: well developed, well nourished, morbidly obese, alert and oriented x3 , in no acute distress Skin: No lesions, no stigmata chronic liver disease, no evidence of bleeding diathesis Lymphatic: No palpable lymphadenopathy HEENT: No lesions Cardiovascular: Heart: Regular rate and rhythm, no murmurs, gallops or rubs. Peripheral pulses present within normal limits, no cyanosis, clubbing or edemas. No pulsatile abdominal mass Respiratory: Lungs clear to auscultation and percussion, no wheezing, no rubs Gastrointestinal and Liver: Abdomen: Soft, non tenderness, not distended, no hernias, no masses, no organomegaly, no ascites, no guarding, no rebound tenderness, normoactive bowel sounds. Extremities: No cyanosis, clubbing, or edema. [Neurologic: Cranial nerves II-XII intact, motor within normal limits, sensory within normal limits. Reflexes within normal limits.] [Psychiatric: Alert and oriented x3, mood/affect/judgment adequate] Diagnostic Studies: Available data and images were reviewed personally. See reports. Significant results and findings are addressed here or in the assessment and plan. Problems: Exam/Review of Systems Vital Signs Vitals Vital Signs Date Time Temp Pulse Resp B/P Pulse Ox O2 Delivery O2 Flow Rate FiO2 07/16/17 08:00 105 07/16/17 07:46 98.5 20 130/79 96 07/15/17 17:34 Room Air 07/14/17 10:44 2.0 Intake and Output 10/6/17 10/6/17 10/7/17 15:00 23:00 07:00 Intake Total 1200 ml Output Total 1500 ml Balance -300 ml Results Result Diagram: 07/15/17 0757 07/14/17 0756 Medications Medications Current Medications Albuterol (Ventolin Hfa) 2 puff Q4H PRN INH WHEEZING AND SOB; Start 07/13/17 at 18:00 Amlodipine Besylate (Norvasc) 10 mg DAILY PO Last administered on 07/16/17 09: 20; Admin Dose 10 MG; Start 07/14/17 at 09:00 Atorvastatin Calcium (Lipitor) 10 mg QHS PO Last administered on 07/15/17 21: 18; Admin Dose 10 MG; Start 07/13/17 at 21:00 Benzonatate (Tessalon) 100 mg Q8H PRN PO COUGH; Start 07/13/17 at 18:00 Citalopram Hydrobromide (Celexa) 40 mg DAILY PO Last administered on 07/16/17 09:20; Admin Dose 40 MG; Start 07/14/17 at 09:00 Lisinopril (Zestril) 10 mg DAILY PO Last administered on 07/16/17 09:20; Admin Dose 10 MG; Start 07/14/17 at 09:00 Acetaminophen (Tylenol Tab) 650 mg Q6H PRN PO PAIN LEVEL 1-3 OR FEVER; Start 07/13/17 at 18:00 Acetaminophen/ Hydrocodone Bitart 1 tab 1 tab Q6H PRN PO MODERATE PAIN LEVEL 4- 6 Last administered on 07/15/17 12:10; Admin Dose 1 TAB; Start 07/13/17 at 18: 00 Sodium Chloride (NS) 1,000 ml @ 100 mls/hr Q10H IV Last administered on 06:17; Admin Dose 100 MLS/HR; Start 07/13/17 at 18:00 Hydromorphone HCl (Dilaudid) 1 mg Q4 PRN IV pain Last administered on 10:05; Admin Dose 1 MG; Start 07/13/17 at 18:30 Diphenhydramine HCl (Benadryl) 50 mg Q6 PRN PO as needed for itching Last administered on 07/15/17 02:22; Admin Dose 50 MG; Start 07/13/17 at 18:30 Pantoprazole (Protonix Iv) 40 mg BID@ IV Last administered on 07/16/17 06 :16; Admin Dose 40 MG; Start 07/14/17 at 06:30 PRITI BROWN MD Jul 16, 2017 12:18
--- NOTE | 2017-07-16 12:54 | DS ---
Date/Time of Note Date/Time of Note DATE: 07/16/17 TIME: 12:53 Discharge Summary Admission/Discharge Info Admit Date/Time Jul 13, 2017 at 16:13 Discharge Date/Time Jul 16, 2017 at 12:30 Hx of Present Illness CC abd pain x 1 day HPI 51 yo M with pmhx obesity, HTN, PEs x 2 2/2 protein S deficiency last admitted 2 weeks ago for SOB. Had massive hematemesis with hgb drop from 12 to 5. GI work up notable for tagged RBC scan localized bleeding source to proximal small bowel. EGD with gastritis/esophagitis/EVs but no active bleeding. Coumadin stopped, PPI started. Pt states since discharge from the hospital he's had a hacking nonproductive cough and nasal congestion. No chest pain. This morning started having severe lower abd pain. Poor appetite x 2 days. Also reports dark BM today. In the ER pt noted to be tachy and diaphoretic. PMHx, ROS as per HPI Soc Hx: lives in the community Meds reviewed Hospital Course Assessment: * GI bleeding/hematochezia Colonoscopy * 4 mm sessile polyp sigmoid colon. Ablated * Large internal hemorrhoids * Otherwise normal colonoscopy to cecum * Moderate anemia * History of small bowel bleeding etiology unclear * History of cirrhosis * Small esophageal varices * History of GERD/gastritis * Morbid obesity * Hypertension Plan: Continue present regimen Patient complaint discharge Advised to seek outpatient gastroenterology follow-up to consider capsule endoscopy given previous hospitalization showed evidence of small bowel bleeding Patient underwent colonoscopy which was remarkable only for internal hemorrhoids. He had no more bleeding and H/H was stable throughotu his hosptialization. He was encouraged to seek care from outaptient GI for consideration of capsule endoscopy Home Meds Active Scripts Omeprazole* (Omeprazole*) 20 Mg Capsule., 20 MG PO DAILY for 30 Days, #30 CAP Prov:MCKENZIE BONILLA MD 07/03/17 Reported Medications Benzonatate* (Tessalon Perle*) 100 Mg Capsule, 100 MG PO Q8H Y for COUGH, CAP 06/29/17 Lisinopril* (Lisinopril*) 10 Mg Tablet, 10 MG PO DAILY, #30 TAB 06/29/17 Atorvastatin Calcium (Atorvastatin Calcium) 10 Mg Tablet, 10 MG PO QHS, #30 TAB 06/29/17 Albuterol Sulfate* (Ventolin HFA*) 18 Gm Hfa.aer.ad, 2 PUFF INHALATION Q4H Y for WHEEZING AND SOB, #1 INHALER 06/29/17 Citalopram Hydrobromide* (Citalopram Hydrobromide*) 40 Mg Tablet, 40 MG PO DAILY , #30 TAB 06/29/17 Amlodipine Besylate* (Amlodipine Besylate*) 10 Mg Tablet, 10 MG PO DAILY, #30 TAB 06/29/17 Primary Care Provider Not On Staff Doctor MCKENZIE BONILLA MD Jul 16, 2017 12:54
== END 2017-07-16 12:30 | disposition home or self-care (01) | DRG 378 ==
LOC: E/R 11:00 → TEL 16:13
PROVIDERS: ADMIT Internal Medicine; ATTEND Internal Medicine
PROC: 0DBN8ZX Excision of Sigmoid Colon, Via Natural or Artificial Opening Endoscopic, Diagnostic (ICD-10-PCS; principal; 2017-07-15 19:00)
DX: K92.2 Gastrointestinal hemorrhage, unspecified (principal); D68.59 Other primary thrombophilia; I48.92 Unspecified atrial flutter; K64.8 Other hemorrhoids; K92.1 Melena; E66.01 Morbid (severe) obesity due to excess calories; D64.9 Anemia, unspecified; I10 Essential (primary) hypertension; K21.9 Gastro-esophageal reflux disease without esophagitis; K63.5 Polyp of colon; Z68.35 Body mass index [BMI] 35.0-35.9, adult; Z86.711 Personal history of pulmonary embolism; Z87.891 Personal history of nicotine dependence
CPT/HCPCS: 36415; 71010; 71275; 80048; 80053; 80307; 83605; 83690; 84484; 85014; 85018; 85025; 85610; 85730; 86850; 86900; 86901; 88305; 90686; 93005; 96361; 96374; 96375; 96376; C9113; J1170; J2405; J3010; J7030; J7040; Q9967

== ENCOUNTER 2017-10-20 01:28 | Observation (INO) | END 2017-10-21 13:36 | disposition home or self-care (01) ==

== ENCOUNTER 2017-11-04 11:45 | Emergency (ER) | END 2017-11-04 16:51 | disposition home or self-care (01) ==

== ENCOUNTER 2017-11-14 17:35 | Emergency (ER) | END 2017-11-15 02:14 | disposition left against medical advice (07) ==

== ENCOUNTER 2018-01-12 10:02 | Emergency (ER) | END 2018-01-12 11:21 | disposition home or self-care (01) ==

== ENCOUNTER 2018-02-05 | Emergency (ER) | END 2018-02-05 05:33 | disposition home or self-care (01) ==

== ENCOUNTER 2018-05-25 03:16 | Inpatient (IN) | END 2018-05-25 14:24 | disposition home or self-care (01) | DRG 313 ==

== ENCOUNTER 2018-07-08 08:44 | Observation (INO) | END 2018-07-08 11:34 | disposition home or self-care (01) ==

== ENCOUNTER 2018-07-13 07:36 | Inpatient (IN) | END 2018-07-15 17:16 | disposition home or self-care (01) | DRG 313 ==

== ENCOUNTER 2018-07-19 07:15 | Emergency (ER) | END 2018-07-19 13:27 | disposition home or self-care (01) ==

== ENCOUNTER 2018-08-06 11:46 | Inpatient (IN) | END 2018-08-12 12:59 | disposition home or self-care (01) | DRG 175 ==

== ENCOUNTER 2018-08-17 22:28 | Inpatient (IN) | END 2018-08-20 15:30 | disposition home or self-care (01) | DRG 563 ==

== ENCOUNTER 2018-09-17 00:03 | Emergency (ER) | END 2018-09-17 06:45 | disposition home or self-care (01) ==

== ENCOUNTER 2018-09-21 19:30 | Emergency (ER) | END 2018-09-21 20:00 | disposition left against medical advice (07) ==

== ENCOUNTER 2018-09-22 10:53 | Inpatient (IN) | END 2018-09-26 12:54 | disposition home or self-care (01) | DRG 556 ==

== ENCOUNTER 2018-10-06 02:28 | Observation (INO) | payer OTHER ==
[~2018-10-06] VITALS: Ht 177.8 cm; Wt 126.4 kg
[~2018-10-06 02:28] MED LIST changes: -ALBU18HF INHALATION; +ALBU8.5H8 INH; +AMLO-145 PO; -AMLO-147 PO; +APIX5TAB PO; +ATOR-2 PO; -ATOR10TA65 PO; -BENZ100C70 PO; +BENZ1LOZ4 MT; +BUSP5TAB2 PO; -CITA-104 PO; +CITA40TA6 PO; +FLUT1AER INHALATION; +FLUT1BLS INH; +GABA300C16 PO; +GUAI120S26 PO; +HYDR-3609 PO; +ISOS30TA67 PO; +LISI-471 PO; -LISI10TA2 PO; +METO-319 PO; +NICO-544 TD; -OMEP20CA16 PO; +PANT40TA4 PO
[2018-10-06] MEDS ORDERED: FAMOTIDINE 20 MG INJ IV STA (03:20)
[2018-10-06] MEDS ORDERED: ONDANSETRON 4 MG INJ IV STA (03:20)
[2018-10-06] MEDS ORDERED: HYDROmorphONE 1 MG/ML SYG IV STA (03:20)
[2018-10-06] MEDS ORDERED: HYDROmorphONE 1 MG/ML SYG IV ONE (05:35)
[2018-10-06] MEDS ORDERED: SOD CHLORIDE 0.9% 1,000 ML IV SCH (06:11)
[2018-10-06] MEDS ORDERED: NACL 0.9% 3 ML SYG IV SCH (06:30)
[2018-10-06] MEDS ORDERED: ACETAMINOPHEN 325 MG TAB PO PRN (06:30)
[2018-10-06] MEDS ORDERED: ONDANSETRON 4 MG INJ IV PRN (06:30)
[2018-10-06] MEDS ORDERED: BISACODYL (EC) 5 MG TAB PO PRN (06:30)
[2018-10-06] MEDS ORDERED: DOCUSATE SODIUM 100 MG CAP PO PRN (06:30)
[2018-10-06 06:54] VITALS: Ht 177.8 cm; Wt 126.4 kg
[2018-10-06 07:32] VITALS: BP 147/94; PULSE 78; RESP 20
[2018-10-06] MEDS: METOPROLOL (XL) 50 MG TAB PO SCH (08:41)
[2018-10-06] MEDS: HYDROCODONE/APAP (5/325) TAB NGT PRN ×2 (08:42→12:48)
[2018-10-06] MEDS: ISOSORBIDE MONONITRATE(SR)30 MG TAB PO SCH (08:42)
[2018-10-06] MEDS: AMLODIPINE 5 MG TAB PO SCH (08:42)
[2018-10-06] MEDS: FLUTICASONE/VILANTEROL 100-25 INH SCH (08:43)
[2018-10-06] MEDS ORDERED: BUSPIRONE 5 MG TAB PO SCH (09:00)
--- NOTE | 2018-10-06 10:33 | CONS ---
Date/Time of Note Date/Time of Note DATE: 10/06/18 TIME: 10:33 Assessment/Plan Assessment/Plan Hospital Course Summary Assessment and Plan: Assessment: BRBPR- Last colonoscopy 2016- 4 mm sessile polyp sigmoid colon bx TA. Ablated, Large internal hemorrhoids. Otherwise normal colonoscopy to cecum Right lower quadrant pain Sleep apnea- requiring CPAP Obesity HTN History of multiple PE's- on Eliquis History of EV grade I/IV Fatty liver History of Cardiac arrest 07/12/18 Plan: Start clear liquid diet Monitor labs Start Canasa supp qhs No plan for repeat colonoscopy at this time- however this may change pending [facility] course Will continue to monitor further recommendations base don clinical course Pt with multiple recent CT scan- will hold off on repeat scan with contrast- however if patient patient persists or worsens Recommend repeat EGD out-pt or prior to discharge. Patient seen in collaboration with Dr. Mireles Result Diagram: 10/06/18 0350 10/06/18 0350 Results 24hrs Laboratory Tests Test 10/06/18 03:50 White Blood Count 8.3 # Red Blood Count 4.47 L Hemoglobin 13.5 L Hematocrit 41.0 L Mean Corpuscular Volume 91.7 Mean Corpuscular Hemoglobin 30.2 Mean Corpuscular Hemoglobin Concent 32.9 Red Cell Distribution Width 12.3 Platelet Count 278 Mean Platelet Volume 9.0 Immature Granulocytes % 0.400 Neutrophils % 65.3 Lymphocytes % 17.5 Monocytes % 12.1 H Eosinophils % 4.2 Basophils % 0.5 Nucleated Red Blood Cells % 0.0 Immature Granulocytes # 0.030 Neutrophils # 5.4 Lymphocytes # 1.5 Monocytes # 1.0 H Eosinophils # 0.4 Basophils # 0.0 Nucleated Red Blood Cells # 0.0 Prothrombin Time 11.3 L Prothrombin Time Ratio 0.9 INR International Normalized Ratio 0.82 Activated Partial Thromboplast Time 26.2 Sodium Level 144 Potassium Level 3.8 Chloride Level 107 Carbon Dioxide Level 28 Anion Gap 9 Blood Urea Nitrogen 18 Creatinine 0.91 Est Glomerular Filtrat Rate mL/min > 60 Glucose Level 120 Calcium Level 8.6 Total Bilirubin 0.1 L Direct Bilirubin 0.00 Indirect Bilirubin 0.1 Aspartate Amino Transf (AST/SGOT) 20 Alanine Aminotransferase (ALT/SGPT) 28 Alkaline Phosphatase 82 Troponin I < 0.012 B-Type Natriuretic Peptide 23 Total Protein 6.5 Albumin 3.7 Globulin 2.80 Albumin/Globulin Ratio 1.32 CC: PRITI MIRELES MD ; Consultation Date/Type/Reason Admit Date/Time Oct 06, 2018 at 05:46 Date of Consultation: Oct 06, 2018 Type of Consult GI Reason for Consultation Rectal bleeding Hx of Present Illness ThIs a 53-year-old male with past medical history PE on Eliquis, obesity, remote history of cardiac arrest in July of this year, hypertension, sleep apnea requiring CPAP, previous history of GI bleed status post EGD and colonoscopy in 2017 showing esophageal varices grade 1 of 4, gastritis, colonoscopy revealed x1 polyp (biopsy TA) arch internal hemorrhoids, otherwise negative colonoscopy. Liza davila presented to an outside hospital with complaints of rectal bleeding abdominal pain patient was transferred to the [facility] during hospital for insurance reasons. She has been consulted for further evaluation regarding rectal bleeding. At time evaluation patient denies nausea/vomiting no further episodes of rectal bleeding currently we are waiting for stool to be sent out for OB patient states he is having right lower quadrant pain as he is describing patient initially becomes more agitated and appears to be in more pain however he did not appear to be in this much pain when our initial conversation began, he is currently asking for increase in pain medication and has been asking nurse for IV Dilaudid. Imaging of the obtain CT abdomen pelvis without contrast reveals nonobstructing left renal calculus, sigmoid diverticulosis without evidence of acute diverticulitis, L5 through S1 disc herniation, the spleen, liver, adrenal glands and pancreas are unremarkable, there is no evidence of cholelithiasis or biliary ductal dilation. Labs show hemoglobin 13.5, hematocrit 41.0, MCV 91.7, MCH 30.2, INR 0.82, LFTs are within normal range of note patient was previously checked for hepatitis which he has immunity to hepatitis B, hepatitis C antibody is negative. At this time we will start Canasa qhs for hemorrhoids continue to monitor labs, no plan for repeat colonoscopy at this time, we will maintain close observation and provide further recommendations based on clinical course. Review of Systems: A 12 system, review was conducted and is negative except as noted in the HPI or here. Past Medical History Medications Current Medications IV Flush (NS 3 ml) 3 ml PER PROTOCOL IV ; Start 10/06/18 at 06:30 Ondansetron HCl (Zofran Inj) 4 mg Q6H PRN IV NAUSEA AND/OR VOMITING; Start 10/06/18 at 06:30 Acetaminophen (Tylenol Tab) 650 mg Q6H PRN PO PAIN LEVEL 1-3 OR FEVER; Start 10/06/18 at 06:30 Docusate Sodium (Colace) 100 mg Q12H PRN PO CONSTIPATION; Start 10/06/18 at 06:30 Bisacodyl (Dulcolax) 5 mg DAILY PRN PO CONSTIPATION; Start 10/06/18 at 06:30 Amlodipine Besylate (Norvasc) 5 mg DAILY PO Last administered on 10/06/18at 08:42; Admin Dose 5 MG; Start 10/06/18 at 09:00 Atorvastatin Calcium (Lipitor) 80 mg QHS PO ; Start 10/06/18 at 21:00 Buspirone HCl (Buspar) 7.5 mg BID PO ; Start 10/06/18 at 09:00 Fluticasone/ Vilanterol (Breo Ellipta 100-25 Mcg Inh) 1 inh DAILY INH Last administered on 10/06/18at 08:43; Admin Dose 1 INH; Start 10/06/18 at 09:00 Isosorbide Mononitrate (Imdur) 30 mg DAILY PO Last administered on 10/06/18at 08:42; Admin Dose 30 MG; Start 10/06/18 at 09:00 Metoprolol Succinate (Toprol Xl) 50 mg DAILY PO Last administered on 10/06/18at 08:41; Admin Dose 50 MG; Start 10/06/18 at 09:00 Acetaminophen/ Hydrocodone Bitart ([place] (5/325)) 1 tab Q4H PRN NGT MODERATE PAIN LEVEL 4-6 Last administered on 10/06/18at 08:42; Admin Dose 1 TAB; Start 10/06/18 at 08:30 Allergies: Coded Allergies: morphine (Unverified Allergy, Severe, rashes, 10/06/18) Past Surgical History Past Surgical Hx: no surgical history, other Social History Smoking Status: Former smoker Exam/Review of Systems Vital Signs Vitals Vital Signs Date Temp Pulse Resp B/P (MAP) Pulse Ox O2 O2 Flow FiO2 Time Delivery Rate 10/06/18 98.6 78 20 147/94 95 Nasal 2.0 07:32 (111) Cannula Exam PHYSICAL EXAMINATION: GENERAL: Morbidly obese, alert and oriented x3 SKIN: No lesions EYES: Pupils equal reactive to light EARS/NOSE AND THROAT: Ears normal, nose normal NECK: Supple, no masses. CHEST: Inspection within normal limits. CARDIOVASCULAR: Heart: Regular rate and rhythm, RESPIRATORY: Lungs clear to auscultation GASTROINTESTINAL AND LIVER: Abdomen: Soft, non tenderness, non-distended, no hernias, no masses, no organomegaly, no ascites, no guarding, no rebound tenderness, normoactive bowel sounds. Rectal: Deferred. [no perianal disease, no masses, stool normal, occult blood negative.] GENITOURINARY: Male genitalia within normal limits. EXTREMITIES: No cyanosis, clubbing or edema. Medications Medications Current Medications IV Flush (NS 3 ml) 3 ml PER PROTOCOL IV ; Start 10/06/18 at 06:30 Ondansetron HCl (Zofran Inj) 4 mg Q6H PRN IV NAUSEA AND/OR VOMITING; Start 10/06/18 at 06:30 Acetaminophen (Tylenol Tab) 650 mg Q6H PRN PO PAIN LEVEL 1-3 OR FEVER; Start 10/06/18 at 06:30 Docusate Sodium (Colace) 100 mg Q12H PRN PO CONSTIPATION; Start 10/06/18 at 06:30 Bisacodyl (Dulcolax) 5 mg DAILY PRN PO CONSTIPATION; Start 10/06/18 at 06:30 Amlodipine Besylate (Norvasc) 5 mg DAILY PO Last administered on 10/06/18at 08:42; Admin Dose 5 MG; Start 10/06/18 at 09:00 Atorvastatin Calcium (Lipitor) 80 mg QHS PO ; Start 10/06/18 at 21:00 Buspirone HCl (Buspar) 7.5 mg BID PO ; Start 10/06/18 at 09:00 Fluticasone/ Vilanterol (Breo Ellipta 100-25 Mcg Inh) 1 inh DAILY INH Last administered on 10/06/18at 08:43; Admin Dose 1 INH; Start 10/06/18 at 09:00 Isosorbide Mononitrate (Imdur) 30 mg DAILY PO Last administered on 10/06/18at 08:42; Admin Dose 30 MG; Start 10/06/18 at 09:00 Metoprolol Succinate (Toprol Xl) 50 mg DAILY PO Last administered on 10/06/18at 08:41; Admin Dose 50 MG; Start 10/06/18 at 09:00 Acetaminophen/ Hydrocodone Bitart ([place] (5/325)) 1 tab Q4H PRN NGT MODERATE PAIN LEVEL 4-6 Last administered on 10/06/18at 08:42; Admin Dose 1 TAB; Start 10/06/18 at 08:30 DARLENE SANCHEZ Oct 06, 2018 10:33
[2018-10-06] MEDS: PANTOPRAZOLE 40 MG INJ IV SCH (12:48)
[2018-10-06] MEDS: morphine 4 MG/ML VIAL IV PRN ×3 (13:50→22:33)
[2018-10-06] MEDS: LIDOCAINE 5% PATCH TD SCH (14:13)
[2018-10-06] MEDS: BUSPIRONE 10 MG TAB PO SCH ×2 (14:13→20:24)
--- NOTE | 2018-10-06 14:39 | NUR ---
Patient refused to have skin assessment done, explained reasons of protocol, still refused. Also refused to have sacral and heel picture taken.
[2018-10-06] MEDS: PREGABALIN 75 MG CAP PO SCH ×2 (14:59→22:33)
[2018-10-06 15:39] VITALS: BP 152/84; PULSE 94; RESP 20
--- NOTE | 2018-10-06 16:12 | HP ---
DATE OF ADMISSION: 10/06/2018 PRESENTING COMPLAINT: Hematochezia. HISTORY OF PRESENTING COMPLAINT: Mr. Hawley is a 53-year-old male known to our service for frequent hospitalizations. He presents today with reports of bright red blood per rectum of 1 day's duration as well as a persistent right upper quadrant pain that he is being for and has been worked up multipl e times without any significant finding. This pain is thought to be musculoskeletal and improved wit h anti-inflammatory therapy. He has a chronic cough and last time he was seen by ENT with concern fo r possible chronic sinusitis causing this cough and was discharged. At this time, he says he still h as that significant pain, but more importantly, he comes in with evidence of bright red blood per rec susan. He has had a colonoscopy done in 07/2017 that showed a 4 mm sessile polyp in the sigmoid colon that was ablated. He was also noted to have large internal hemorrhoids. Pathology from that procedu re just showed tubular adenoma. The patient has been on Eliquis therapy since 07/2018 when he was di agnosed with bilateral pulmonary embolus that has been on subsequent evaluation which showed to be im proving. This is likely contributing to hematochezia. He is admitted for observation and GI workup. PAST MEDICAL HISTORY: 1. Bilateral pulmonary embolism, recently diagnosed in 07/2018. 2. Hypertension. 3. Dyslipidemia. 4. COPD. 5. Tobacco use, recently quit. 6. Chronic depression. 7. Obstructive sleep apnea with possible obesity hypoventilation syndrome. 8. Recent cardiac arrest with coronary artery disease and angina. 9. Concern for narcotic seeking behavior with concern that recent cardiac arrest may have been secon cookie to opiate overdose. PAST SURGICAL HISTORY: None. ALLERGIES: THE PATIENT INITIALLY WAS ALLERGIC TO MORPHINE, BUT AT THIS TIME, HE IS SAYING THAT HE DO ES NOT HAVE A MORPHINE ALLERGY AND IS ACTUALLY REQUESTING THAT MEDICATION TO BE PRESCRIBED. SOCIAL HISTORY: States that he quit smoking a few months ago. FAMILY HISTORY: Noncontributory with no history of colon cancer. REVIEW OF SYSTEMS: A 12-point review of system was done and no other significant findings except tho se noted in the HPI. PHYSICAL EXAMINATION: VITAL SIGNS: Temperature 98.6, pulse is 78, respirations 20, blood pressure 147/94, saturations 95% oxygen via nasal cannula at 2 liters per minute. GENERAL: Obese male, anxious. HEENT: Head is normocephalic. Pupils are equal and reactive. Mucous membranes are moist. Posterio r pharynx is clear of erythema or exudate. NECK: Supple. CHEST: Clear to auscultation with good air entry bilaterally. Palpation of the right upper quadrant and right lower chest area does elicit point tenderness in more likely midclavicular line. CARDIOVASCULAR: Heart sounds, S1, S2 with added sounds or murmurs. ABDOMEN: Soft. No erythema, no distended veins. Normoactive bowel sounds. EXTREMITIES: Negative for edema. No gross focal deficits. NEUROLOGIC: Grossly normal. SKIN: Devoid of rash or jaundice. LABORATORY VALUES: CBC: Hemoglobin is 13.5. As of the time that he was discharged, hemoglobin was 14, no significant drop. Platelet count is normal. White count is normal. A complete metabolic pro file as well as a troponin level was completely normal. Coagulation profile was also normal. IMAGING: CT of the abdomen and pelvis showed a nonobstructing left renal calculus, sigmoid diverticu losis without evidence of diverticulitis and a chronic L5 to S1 disk herniation. A chest x-ray showe d no acute abnormality and a recent chest MRI showed no significant abnormality. Recent chest CTA in 09/2018 did not show any acute findings. It did show incomplete recanalization of prior pulmonary e mbolus. The patient's last echocardiogram was in 07/2018 and it showed ejection fraction of 50% to 6 0% without significant valvular abnormalities. ASSESSMENT AND PLAN: A 53-year-old male known to our service from multiple hospitalizations, who pre sents again today with hematochezia and request for intravenous pain medication who is currently [facility] ward as follows: 1. Bright red blood per rectum likely secondary to transient hemorrhoidal bleeding on Eliquis therap y. - Status post gastroenterology review already. Their recommendations are for Canasa suppository at b edtime. No plan for repeat colonoscopy at this time. I recommend a repeat EGD as an outpatient. 2. Chronic right lower chest versus right upper quadrant pain, likely musculoskeletal. The patient might be exaggerating degree of pain. The patient has exhibited narcotic drug-seeking behavior in e past. Gently, we will give low dose morphine. Do not escalate therapy. Also continue anti-inflam matories as well as gabapentin therapy. 3. Obesity with possible obesity hypoventilation syndrome. - Resume CPAP at bedtime. 4. Hypertension: Fair control. - Continue home meds and titrate as indicated. 5. Dyslipidemia: Continue home statin. 6. Chronic depression: Continue home meds. 7. History of pulmonary embolism, bilateral. Continue home Eliquis. 8. Remote tobacco user. Continue cessation reinforcement. Nicotine patch as needed. 9. History of cardiac arrest possibly secondary to narcotic overdose. Continue close monitoring. 10. Chronic nonproductive cough with concern for possible chronic sinusitis: Treat p.r.n. Further interventions will depend on his clinical course. At this point, the plan is to observe the patient tomorrow. If no significant hemoglobin drop and no further episodes of bleeding, the patient can be discharged to follow up outpatient with his PCP and outpatient money position officer. This plan of care has been discussed with patient in detail. Questions have been answered. For furt her information and clarification, please review the patient's chart and my orders. Dictated By: YOLA HANSON MD BA/NTS Conf#: [id number] DID#: [id number] CC: MELANIE AHUMADA MD; PRITI BROWN;*EndCC*
[2018-10-06] MEDS: HYDROCODONE/APAP (5/325) TAB PO PRN ×2 (16:56→20:57)
[2018-10-06] MEDS: NICOTINE (14 MG/24 HR) PATCH TRANSDERM SCH (18:01)
--- NOTE | 2018-10-06 19:02 | NUR ---
End of Shift Notes Fall precautions in place, no episodes of bloody stool on shift. at bedside, no signs of acute distress or active bleeding noted. Kept clean and dry all needs attended to, hourly roundings done.
[2018-10-06] MEDS: DOCUSATE SODIUM 100 MG CAP PO SCH (20:24)
[2018-10-06 20:28] VITALS: BP 134/85; PULSE 98; RESP 18
[2018-10-06] MEDS ORDERED: MESALAMINE 1000 MG SUPP PR SCH (21:00)
[2018-10-06] MEDS ORDERED: ATORVASTATIN 80 MG TAB PO SCH (21:00)
[2018-10-07] MEDS: HYDROCODONE/APAP (5/325) TAB PO PRN ×3 (01:02→14:42)
[2018-10-07 01:53] VITALS: BP 134/94; PULSE 102; RESP 18
[2018-10-07] MEDS: morphine 4 MG/ML VIAL IV PRN ×3 (02:36→10:48)
--- NOTE | 2018-10-07 04:59 | NUR ---
SHIFT REPORT: Continue on pain management of morphine IVP and [place] every 4 hours as needed. Patient ambulates to the toilet with standby assist. Patient was observed with short of breath upon exertion. Vital signs within normal limit. instructed to call for assistance. will continue to monitor.
[2018-10-07] MEDS: PANTOPRAZOLE 40 MG INJ IV SCH (05:40)
[2018-10-07 07:47] VITALS: BP 161/95; PULSE 112; RESP 20
[2018-10-07] MEDS: LIDOCAINE 5% PATCH TD SCH (09:45)
[2018-10-07] MEDS: DOCUSATE SODIUM 100 MG CAP PO SCH (09:46)
[2018-10-07] MEDS: PREGABALIN 75 MG CAP PO SCH (09:46)
[2018-10-07] MEDS: AMLODIPINE 5 MG TAB PO SCH (09:46)
[2018-10-07] MEDS: METOPROLOL (XL) 50 MG TAB PO SCH (09:47)
[2018-10-07] MEDS: BUSPIRONE 10 MG TAB PO SCH ×2 (09:47→12:38)
[2018-10-07] MEDS: ISOSORBIDE MONONITRATE(SR)30 MG TAB PO SCH (09:47)
[2018-10-07] MEDS: FLUTICASONE/VILANTEROL 100-25 INH SCH (09:48)
[2018-10-07] MEDS: NICOTINE (14 MG/24 HR) PATCH TRANSDERM SCH (09:57)
[2018-10-07 13:16] VITALS: BP 118/71; PULSE 90; RESP 20
--- NOTE | 2018-10-07 13:24 | PN ---
Date/Time of Note Date/Time of Note DATE: 10/07/18 TIME: 13:23 Assessment/Plan VTE Prophylaxis Risk score (from Ns)>0 risk: 2 SCD applied (from Nsg): Yes Pharmacological prophylaxis: NA/contraindicated Pharm contraindication: low risk/ambulating Lines/Catheters IV [facility] [place] Assessment/Plan Hospital Course Summary Assessment and Plan: Assessment: BRBPR- Last colonoscopy 2016- 4 mm sessile polyp sigmoid colon bx TA. Ablated, Large internal hemorrhoids. Otherwise normal colonoscopy to cecum Right lower quadrant pain Sleep apnea- requiring CPAP Obesity HTN History of multiple PE's- on Eliquis History of EV grade I/IV Fatty liver History of Cardiac arrest 07/12/18 Plan: Diet as tolerated HGB stable Patient appears stable for out-pt management - recommend high fiber diet- patient can use Prep h or Anusol supp x5 days if needed for hemorrhoids- instead of Canasa Recommend f/u with GI for out-pt EGD Patient seen in collaboration with Dr. Mireles/Dwayne Subjective: Course reviewed with nursing staff Patient interviewed and examined All labs, imaging and other results reviewed The patient feels well, less abd pain, tolerating diet well No c/o n/v. Pt cleared from GI point of view for out-pt management PHYSICAL EXAMINATION: GENERAL: Morbidly obese, alert and oriented x3 SKIN: No lesions EYES: Pupils equal reactive to light EARS/NOSE AND THROAT: Ears normal, nose normal NECK: Supple, no masses. CHEST: Inspection within normal limits. CARDIOVASCULAR: Heart: Regular rate and rhythm, RESPIRATORY: Lungs clear to auscultation GASTROINTESTINAL AND LIVER: Abdomen: Soft, lower abd tenderness- improved, non- distended, no hernias, no masses, no organomegaly, no ascites, no guarding, no rebound tenderness, normoactive bowel sounds. Rectal: Deferred. GENITOURINARY: Male genitalia within normal limits. EXTREMITIES: No cyanosis, clubbing or edema. Result Diagram: 10/07/18 0842 10/07/18 0439 Results 24hrs Laboratory Tests Test 10/07/18 04:39 10/07/18 08:42 Sodium Level 144 Potassium Level 3.7 Chloride Level 104 Carbon Dioxide Level 31 Anion Gap 9 Blood Urea Nitrogen 15 Creatinine 0.89 Est Glomerular Filtrat Rate mL/min > 60 Glucose Level 119 Calcium Level 8.8 Magnesium Level 2.2 Total Bilirubin 0.4 Direct Bilirubin 0.00 Indirect Bilirubin 0.4 Aspartate Amino Transf (AST/SGOT) 20 Alanine Aminotransferase (ALT/SGPT) 30 Alkaline Phosphatase 69 Total Protein 6.5 Albumin 3.8 Globulin 2.70 Albumin/Globulin Ratio 1.40 White Blood Count 8.3 Red Blood Count 4.77 Hemoglobin 14.5 Hematocrit 43.8 Mean Corpuscular Volume 91.8 Mean Corpuscular Hemoglobin 30.4 Mean Corpuscular Hemoglobin Concent 33.1 Red Cell Distribution Width 12.2 Platelet Count 263 Mean Platelet Volume 8.8 Immature Granulocytes % 0.400 Neutrophils % 71.0 Lymphocytes % 14.5 L Monocytes % 9.4 Eosinophils % 4.2 Basophils % 0.5 Nucleated Red Blood Cells % 0.0 Immature Granulocytes # 0.030 Neutrophils # 5.9 Lymphocytes # 1.2 Monocytes # 0.8 Eosinophils # 0.4 Basophils # 0.0 Nucleated Red Blood Cells # 0.0 Exam/Review of Systems Vital Signs Vitals Vital Signs Date Temp Pulse Resp B/P (MAP) Pulse Ox O2 O2 Flow FiO2 Time Delivery Rate 10/07/18 97.8 90 20 118/71 97 Nasal 2.0 13:16 (87) Cannula Intake and Output 10/06/18 10/06/18 10/07/18 1414:59 22:59 06:59 IntakeIntake Total 720 ml 480 ml BalanceBalance 720 ml 480 ml Medications Medications Current Medications IV Flush (NS 3 ml) 3 ml PER PROTOCOL IV ; Start 10/06/18 at 06:30 Ondansetron HCl (Zofran Inj) 4 mg Q6H PRN IV NAUSEA AND/OR VOMITING; Start 10/06/18 at 06:30 Acetaminophen (Tylenol Tab) 650 mg Q6H PRN PO PAIN LEVEL 1-3 OR FEVER; Start 10/06/18 at 06:30 Bisacodyl (Dulcolax) 5 mg DAILY PRN PO CONSTIPATION; Start 10/06/18 at 06:30 Amlodipine Besylate (Norvasc) 5 mg DAILY PO Last administered on 10/07/18at 09:46; Admin Dose 5 MG; Start 10/06/18 at 09:00 Atorvastatin Calcium (Lipitor) 80 mg QHS PO Last administered on 10/06/18at 20:24; Admin Dose 80 MG; Start 10/06/18 at 21:00 Fluticasone/ Vilanterol (Breo Ellipta 100-25 Mcg Inh) 1 inh DAILY INH Last administered on 10/07/18 09:48; Admin Dose 1 INH; Start 10/06/18 at 09:00 Isosorbide Mononitrate (Imdur) 30 mg DAILY PO Last administered on 10/07/18 09:47; Admin Dose 30 MG; Start 10/06/18 at 09:00 Metoprolol Succinate (Toprol Xl) 50 mg DAILY PO Last administered on 10/07/18 09:47; Admin Dose 50 MG; Start 10/06/18 at 09:00 Pantoprazole (Protonix Iv) 40 mg DAILY@06 IV Last administered on 10/07/18 05:40; Admin Dose 40 MG; Start 10/06/18 at 11:00 Mesalamine (Canasa Supp) 1,000 mg HS [place] Last administered on 10/06/18 20:24; Admin Dose 1,000 MG; Start 10/06/18 at 21:00 Buspirone HCl (Buspar) 5 mg TID PO Last administered on 10/07/18 12:38; Admin Dose 5 MG; Start 10/06/18 at 13:00 Pregabalin (Lyrica) 75 mg BID PO Last administered on 10/07/18 09:46; Admin Dose 75 MG; Start 10/06/18 at 15:00 Lidocaine (Lidoderm) 1 patch DAILY TD Last administered on 10/07/18 09:45; Admin Dose 1 PATCH; Start 10/06/18 at 14:00 Acetaminophen/ Hydrocodone Bitart ([place] (5/325)) 1 tab Q4H PRN PO BREAKTHROUGH PAIN Last administered on 10/07/18 05:43; Admin Dose 1 TAB; Start 10/06/18 at 16:30 Morphine Sulfate (morphine) 2 mg Q4H PRN IV SEVERE PAIN LEVEL 7-10 Last admini stered on 10/07/18 10:48; Admin Dose 2 MG; Start 10/06/18 at 13:30; Stop 10/07/18 at 13:30 Docusate Sodium (Colace) 100 mg Q12 PO Last administered on 10/07/18 09:46; Admin Dose 100 MG; Start 10/06/18 at 21:00 Nicotine (Nicoderm 14 Mg/ 24hr) 1 patch DAILY TRANSDERM Last administered on 10/07/18at 09:57; Admin Dose 1 PATCH; Start 10/06/18 at 18:00 DARLENE SANCHEZ Oct 07, 2018 13:24
--- NOTE | 2018-10-07 14:52 | DS ---
Date/Time of Note Date/Time of Note DATE: 10/07/18 TIME: 14:46 Discharge Summary Admission/Discharge Info Admit Date/Time Oct 06, 2018 at 05:46 Discharge Date/Time October 07 2018 Discharge Diagnosis Hematochezia and bright red blood per rectum; colonic adenoma; hemorrhoids; COPD;; tobacco abuse; fatty liver; history of recent pulmonary embolism; hypertension; obesity; sleep apnea; hyperlipidemia Patient Condition: Fair Consults Gastroenterology Procedures CT scan abdomen and pelvis Hx of Present Illness HISTORY OF PRESENTING COMPLAINT: Mr. Hawley is a 53-year-old male known to our service for frequent hospitalizations. He presents today with reports of bright red blood per rectum of 1 day's duration as well as a persistent right upper quadrant pain that he is being for and has been worked up multiple times without any significant finding. This pain is thought to be musculoskeletal and improved with anti-inflammatory therapy. He has a chronic cough and last time he was seen by ENT with concern for possible chronic sinusitis causing this cough and was discharged. At this time, he says he still has that significant pain, but more importantly, he comes in with evidence of bright red blood per rectum. He has had a colonoscopy done in 07/2017 that showed a 4 mm sessile polyp in the sigmoid colon that was ablated. He was also noted to have large internal hemorrhoids. Pathology from that procedure just showed tubular adenoma. The patient has been on Eliquis therapy since 07/2018 when he was diagnosed with bilateral pulmonary embolus that has been on subsequent evaluation which showed to be improving. This is likely contributing to hematochezia. He is admitted for observation and GI workup. Hospital Course 53-year-old right-handed gentleman who is readmitted to this hospital after recent discharge. At that time she he had been admitted for intercostal muscle tear. He has been doing well but developed bright red blood per rectum and hematochezia. Please note that he is anticoagulated for pulmonary embolism occurring in 2018. At this time he is improved nicely and as per gastroenterology can be followed up as an outpatient. His hemoglobin and hemato crit of been stable and he can be maintained on his anticoagulation as appropriate. He will follow-up with his primary care physician in 2 weeks Home Meds Active Scripts Hydrocodone/Acetaminophen (Hydrocodone-Acetamin 10-325 mg) 1 Each Tablet, 1 TAB PO Q4H PRN for MODERATE PAIN LEVEL 4-6 for 14 Days, TAB Prov:LISA TABARES S. 09/26/18 Rglqqimljey-A-Osrifwhxpb Hb* (Guaifenesin* DM Syrup) 120 Ml Syrup, 5 ML PO Q4H PRN for cough, #1 BOTTLE Prov:LISA TABARES S. 09/26/18 Benzocaine/Menthol (SORE THROAT LOZENGE) 1 Each Lozenge, 1 LOZENGE MT Q1H PRN for COUGH, #1 BOTTLE 2 Refills Prov:LISA TABARES S. 09/26/18 Fluticasone/Vilanterol (Breo Ellipta 200-25 Mcg INH) 1 Each Blst.w.dev, 1 INH INH DAILY, #1 BOTTLE 2 Refills Prov:LISA TABARES S. 09/26/18 Albuterol Sulfate* (Proair HFA*) 8.5 Gm Hfa.aer.ad, 2 PUFF INH Q4 PRN for COUGH, #1 INHALER Prov:CHICA GALDAMEZ MD 09/17/18 Pantoprazole* (Pantoprazole*) 40 Mg Tablet.dr, 40 MG PO QAM for 30 Days, #30 TAB Prov:MARIELLE BRYSON MD 08/20/18 Gabapentin* (Gabapentin*) 300 Mg Capsule, 300 MG PO TID for 30 Days, #90 CAP Prov:MARIELLE BRYSON MD 08/20/18 Lisinopril* (Lisinopril*) 20 Mg Tablet, 40 MG PO DAILY for 30 Days, #60 TAB Prov:MARIELLE BRYSON MD 08/20/18 Amlodipine Besylate* (Amlodipine Besylate*) 5 Mg Tablet, 5 MG PO DAILY for 30 Days, #30 TAB Prov:MARIELLE BRYSON MD 08/20/18 Apixaban* (Eliquis*) 5 Mg Tablet, 5 MG PO BID, #60 TAB Prov:JAYNA GILES MD 08/12/18 Reported Medications Metoprolol Succinate* (Toprol XL*) 50 Mg Tab.er.24h, 50 MG PO DAILY, #30 TAB 09/22/18 Nicotine* (Nicotine* Patch) 7 mg/day Patch, 1 PATCH TD DAILY, PATCH 08/17/18 Buspirone Hcl* (Buspirone Hcl*) 5 Mg Tab, 7.5 MG PO BID, TAB 08/06/18 Fluticasone-Vilanterol (Breo Ellipta Inhaler) 100-25 Mcg/Actuation Aer.pow.ba, 1 PUFF INHALATION DAILY, #1 INHALER 08/06/18 Isosorbide Mononitrate* (Isosorbide Mononitrate*) 30 Mg Tab.er.24h, 30 MG PO DAILY, TAB 08/06/18 Atorvastatin* (Atorvastatin*) 80 Mg Tablet, 80 MG PO QHS, #30 TAB 07/12/18 Citalopram Hydrobromide* (Citalopram Hydrobromide*) 40 Mg Tablet, 40 MG PO DAILY, #30 TAB 07/12/18 Follow-up Plan Primary care physician 2 weeks Primary Care Provider Not On Staff Doctor Time spent on discharge: > 30 minutes Pending Labs Laboratory Tests Test 10/07/18 04:39 10/07/18 08:42 Sodium Level 144 mmol/L (135-144) Potassium Level 3.7 mmol/L (3.5-5.1) Chloride Level 104 mmol/L (97-110) Carbon Dioxide Level 31 mmol/L (21-31) Anion Gap 9 (5-13) Blood Urea Nitrogen 15 mg/dl (7-20) Creatinine 0.89 mg/dl (0.61-1.24) Est Glomerular Filtrat > 60 mL/min (>60) Rate mL/min Glucose Level 119 mg/dl (70-220) Calcium Level 8.8 mg/dl (8.4-10.2) Magnesium Level 2.2 mg/dl (1.7-2.5) Total Bilirubin 0.4 mg/dl (0.2-1.3) Direct Bilirubin 0.00 mg/dl (0.00-0.20) Indirect Bilirubin 0.4 mg/dl (0-1.1) Aspartate Amino 20 IU/L (15-46) Transf (AST/SGOT) Alanine 30 IU/L (13-69) Aminotransferase (ALT/SGPT) Alkaline Phosphatase 69 IU/L (42-121) Total Protein 6.5 g/dl (6.1-8.1) Albumin 3.8 g/dl (3.3-4.9) Globulin 2.70 g/dl (1.3-3.2) Albumin/Globulin Ratio 1.40 White Blood Count 8.3 10^3/ul (4.8-10.8) Red Blood Count 4.77 10^6/ul (4.70-6.10) Hemoglobin 14.5 g/dl (14.0-18.0) Hematocrit 43.8 % (42.0-52.0) Mean Corpuscular Volume 91.8 fl (82.0-101.0) Mean Corpuscular Hemoglobin 30.4 pg (29.0-33.0) Mean Corpuscular 33.1 g/dl (32.0-37.0) Hemoglobin Concent Red Cell Distribution Width 12.2 % (11.5-14.5) Platelet Count 263 10^3/UL (140-415) Mean Platelet Volume 8.8 fl (7.4-10.4) Immature Granulocytes % 0.400 % (0.001-0.429) Neutrophils % 71.0 % (39.0-77.0) Lymphocytes % 14.5 % (15.0-51.0) Monocytes % 9.4 % (0.0-11.0) Eosinophils % 4.2 % (0.0-7.0) Basophils % 0.5 % (0.0-2.0) Nucleated Red Blood Cells % 0.0 /100WBC (0.0-0.0) Immature Granulocytes # 0.030 10^3/ul (0.0-0.031) Neutrophils # 5.9 10^3/ul (1.6-7.5) Lymphocytes # 1.2 10^3/ul (0.8-2.9) Monocytes # 0.8 10^3/ul (0.3-0.9) Eosinophils # 0.4 10^3/ul (0.0-0.5) Basophils # 0.0 10^3/ul (0.0-0.1) Nucleated Red Blood Cells # 0.0 10^3/ul (0.0-0.0) Copies To: CC: DARLENE SANCHEZ; KRIS CHAPPELL ; MARIELLE BRYSON MD Oct 07, 2018 14:52
--- NOTE | 2018-10-07 14:53 | PDOCDIS ---
Discharge Instructions DIAGNOSIS Discharge Diagnosis Hematochezia and bright red blood per rectum; colonic adenoma; hemorrhoids; COPD;; tobacco abuse; fatty liver; history of recent pulmonary embolism; hypertension; obesity; sleep apnea; hyperlipidemia CONDITION [id number] Patient Condition: Hulkw7h Fair HOME CARE INSTRUCTIONS: [id number] Diet Instructions: [id number] Regular ACTIVITY: [id number] Activity Restrictions: [id number] Slowly Increase Activity Do not operate Machinery Do not operate Power Tool FOLLOW UP/APPOINTMENTS Follow-up Plan Primary care physician 2 weeks MARIELLE BRYSON MD Oct 07, 2018 14:53
--- NOTE | 2018-10-07 16:35 | NUR ---
NURSES NOTES: SEEN BY DR. BRYSON ORDER RECEIVED TO DISCHARGE PT HOME. PT MEDICATED FOR PAIN WITH EFFECTIVE RESULT. NO FURTHER COMPLAINTS NOTED.PT AMBULATORY IN STEADY GAIT. DISCHARGE INSTRUCTIONS , FOLLOW UP CARE, MED USE, DIET REGIMEN, PRESCRIPTION GIVEN TO PT. PT VERBALIZED UNDERSTANDING.
== END 2018-10-07 16:33 | disposition home or self-care (01) ==
LOC: E/R 02:28 → 2NE 05:46
PROVIDERS: ADMIT Family Medicine; ATTEND Family Medicine
DX: K92.1 Melena (principal); K62.5 Hemorrhage of anus and rectum; K64.8 Other hemorrhoids; J44.9 Chronic obstructive pulmonary disease, unspecified; K76.0 Fatty (change of) liver, not elsewhere classified; I10 Essential (primary) hypertension; E78.5 Hyperlipidemia, unspecified; E66.9 Obesity, unspecified; Z68.41 Body mass index [BMI] 40.0-44.9, adult; G47.30 Sleep apnea, unspecified; F17.200 Nicotine dependence, unspecified, uncomplicated
CPT/HCPCS: 71045; 74176; 80053; 83735; 83880; 84484; 85025; 85610; 85730; 87081; 93005; C9113; J1170; J2270; J7030; Z7500; Z7610; G0378

== ENCOUNTER 2018-10-21 02:13 | Emergency (ER) | payer OTHER ==
[~2018-10-21] VITALS: Ht 177.8 cm; Wt 125.0 kg
[~2018-10-21 02:13] MED LIST changes: -FLUT1AER INHALATION
[2018-10-21 02:18] VITALS: Ht 177.8 cm; Wt 125.0 kg
--- NOTE | 2018-10-21 03:14 | ERD ---
ER Documentation Chief Complaint Chief Complaint right upper abd pain/right rib cage pain x 2 days, c/o blood in stool HPI 53-year-old man states he has had painless rectal bleeding with bowel movements today about 3-4 times. He states he is seen large clots and bright red blood per rectum with generally soft bowel movements. He states he has had no real pain with defecation but he also complains of right lateral costal margin pain similar to previous episodes. A recent colonoscopy revealed internal hemorrhoids. He denies fevers or chills, and no cough, no shortness of breath, no abdominal pain, no vomiting or diarrhea ROS All systems reviewed and are negative except as per history of present illness. Medications Home Meds Active Scripts Hydrocodone/Acetaminophen (Hydrocodone-Acetamin 10-325 mg) 1 Each Tablet, 1 TAB PO Q4H PRN for MODERATE PAIN LEVEL 4-6 for 14 Days, TAB Prov:LISA TABARES S. 09/26/18 Ugundipxwac-L-Dyzbiabeck Hb* (Guaifenesin* DM Syrup) 120 Ml Syrup, 5 ML PO Q4H PRN for cough, #1 BOTTLE Prov:LISA TABARES S. 09/26/18 Benzocaine/Menthol (SORE THROAT LOZENGE) 1 Each Lozenge, 1 LOZENGE MT Q1H PRN for COUGH, #1 BOTTLE 2 Refills Prov:LISA TABARES S. 09/26/18 Fluticasone/Vilanterol (Breo Ellipta 200-25 Mcg INH) 1 Each Blst.w.dev, 1 INH INH DAILY, #1 BOTTLE 2 Refills Prov:LISA TABARES S. 09/26/18 Albuterol Sulfate* (Proair HFA*) 8.5 Gm Hfa.aer.ad, 2 PUFF INH Q4 PRN for COUGH, #1 INHALER Prov:CHICA GALDAMEZ MD 09/17/18 Pantoprazole* (Pantoprazole*) 40 Mg Tablet.dr, 40 MG PO QAM for 30 Days, #30 TAB Prov:MARIELLE BRYSON MD 08/20/18 Gabapentin* (Gabapentin*) 300 Mg Capsule, 300 MG PO TID for 30 Days, #90 CAP Prov:MARIELLE BRYSON MD 08/20/18 Lisinopril* (Lisinopril*) 20 Mg Tablet, 40 MG PO DAILY for 30 Days, #60 TAB Prov:MARIELLE BRYSON MD 08/20/18 Amlodipine Besylate* (Amlodipine Besylate*) 5 Mg Tablet, 5 MG PO DAILY for 30 Days, #30 TAB Prov:MARIELLE BRYSON MD 08/20/18 Apixaban* (Eliquis*) 5 Mg Tablet, 5 MG PO BID, #60 TAB Prov:JAYNA GILES MD 08/12/18 Reported Medications Metoprolol Succinate* (Toprol XL*) 50 Mg Tab.er.24h, 50 MG PO DAILY, #30 TAB 09/22/18 Nicotine* (Nicotine* Patch) 7 mg/day Patch, 1 PATCH TD DAILY, PATCH 08/17/18 Buspirone Hcl* (Buspirone Hcl*) 5 Mg Tab, 7.5 MG PO BID, TAB 08/06/18 Isosorbide Mononitrate* (Isosorbide Mononitrate*) 30 Mg Tab.er.24h, 30 MG PO DAILY, TAB 08/06/18 Atorvastatin* (Atorvastatin*) 80 Mg Tablet, 80 MG PO QHS, #30 TAB 07/12/18 Citalopram Hydrobromide* (Citalopram Hydrobromide*) 40 Mg Tablet, 40 MG PO DAILY, #30 TAB 07/12/18 Allergies Allergies: Coded Allergies: No Known Allergies (Verified Allergy, Unknown, 10/06/18) PMhx/Soc pulmonary embolism, hypertension, obesity, sleep apnea, hyperlipidemia, protein S deficiency, history of cardiac arrest most likely secondary to opioid overdose, chronic pain syndrome, drug-seeking behavior, COPD, he has had a colonoscopy done in 07/2017 that showed a 4 mm sessile polyp in the sigmoid colon that was ablated. He was also noted to have large internal hemorrhoids. Pathology from that procedure just showed tubular adenoma. The patient has been on Eliquis therapy since 07/2018 when he was diagnosed with bilateral pulmonary embolus but since discontinued due to a resolving PE History of Surgery: No Anesthesia Reaction: No (unknown) Hx Neurological Disorder: No Hx Respiratory Disorders: Yes (PE in the past) Hx Cardiac Disorders: Yes (HTN, CT) Hx Psychiatric Problems: No Hx Miscellaneous Medical Probl: No Hx Alcohol Use: No Hx Substance Use: No Hx Tobacco Use: No Smoking Status: Current every day smoker FmHx Family History: No diabetes Physical Exam Vitals Vital Signs Date Temp Pulse Resp B/P (MAP) Pulse Ox O2 O2 Flow FiO2 Time Delivery Rate 10/21/18 98.1 117 18 170/107 96 02:18 (128) Physical Exam GENERAL: Well-developed, well-nourished, well-hydrated, in no apparent distress, looks nontoxic in appearance HEENT: Moist mucous membranes, pink conjunctiva, no cervical spine tenderness or step-off deformities, no goiter, no jaundice or icterus, extraocular movements intact without pain. No submandibular induration, and no pharyngeal erythema NEURO: Alert and oriented 3, cranial nerves II through XII intact bilaterally, pupils equal round reactive to light, no focal deficits or facial asymmetry, sensation intact distally Strength 5/5 in upper and lower extremities bilaterally CARDIAC: Regular rate and rhythm, no murmurs rubs or gallops LUNGS: Clear bilaterally no wheezing crackles or stridor ABDOMEN: Soft nontender, no guarding, no rigidity, no rebound, no psoas sign no obturator sign. Normoactive bowel sounds SKIN: Warm and dry to touch, no abrasions, contusions, or hematomas, no lacerations, no ecchymosis, no target lesions, and without ulcers EXTREMITIES: No clubbing cyanosis or edema, calves are bilaterally symmetrical, no Homans sign, no popliteal cord sign. Distal pulses equal and bilateral PSYCH: Unremarkable Result Diagram: 10/21/18 0337 10/21/18 0337 Results 24 hrs Laboratory Tests Test 10/21/18 03:37 White Blood Count 7.1 10^3/ul Red Blood Count 4.67 10^6/ul Hemoglobin 14.0 g/dl Hematocrit 41.9 % Mean Corpuscular Volume 89.7 fl Mean Corpuscular Hemoglobin 30.0 pg Mean Corpuscular Hemoglobin Concent 33.4 g/dl Red Cell Distribution Width 12.9 % Platelet Count 306 10^3/UL Mean Platelet Volume 9.1 fl Immature Granulocytes % 0.400 % Neutrophils % 62.8 % Lymphocytes % 20.0 % Monocytes % 12.5 % Eosinophils % 3.7 % Basophils % 0.6 % Nucleated Red Blood Cells % 0.0 /100WBC Immature Granulocytes # 0.030 10^3/ul Neutrophils # 4.4 10^3/ul Lymphocytes # 1.4 10^3/ul Monocytes # 0.9 10^3/ul Eosinophils # 0.3 10^3/ul Basophils # 0.0 10^3/ul Nucleated Red Blood Cells # 0.0 10^3/ul Sodium Level 145 mmol/L Potassium Level 4.1 mmol/L Chloride Level 106 mmol/L Carbon Dioxide Level 28 mmol/L Anion Gap 11 Blood Urea Nitrogen 13 mg/dl Creatinine 0.66 mg/dl Est Glomerular Filtrat Rate mL/min > 60 mL/min Glucose Level 135 mg/dl Calcium Level 9.2 mg/dl Total Bilirubin 0.1 mg/dl Direct Bilirubin 0.00 mg/dl Indirect Bilirubin 0.1 mg/dl Aspartate Amino Transf (AST/SGOT) 21 IU/L Alanine Aminotransferase (ALT/SGPT) 28 IU/L Alkaline Phosphatase 80 IU/L Troponin I Pending Total Protein 7.2 g/dl Albumin 4.0 g/dl Globulin 3.20 g/dl Albumin/Globulin Ratio 1.25 Lipase 96 U/L Current Medications Medications Dose Sig/Vicenta Start Time Status Last (Trade) Ordered Route PRN Stop Time Admin Dose Reason Admin Sodium 500 ml @ Q1H ONCE 10/21/18 10/21/18 Chloride 500 mls/hr IV 03:30 03:55 10/21/18 04:29 Ketorolac 15 mg ONCE ONCE 10/21/18 DC 10/21/18 Tromethamine IV 03:30 03:56 (Toradol) 10/21/18 03:31 Procedures/[facility] IV line was established patient was placed on nuclear monitoring technician rhythm strip revealed a sinus tachycardia at 100 bpm with upright P and T waves. Patient was afebrile I administered 1 L normal saline IV and Toradol 50 mg IV x1. EKG performed, read by me revealed a normal sinus rhythm at 96 bpm, normal axis, narrow QRS complex, no concerning ST elevations or depressions noted CBC reveals a hemoglobin of 14 which is been fairly stable, electrolytes are unremarkable, liver function tests are normal, troponin was negative, INR elevated at 2 consistent with recent Eliquis use Patient's vital signs are normal and he has no complaints of pain at this time. He does not have active rectal bleeding at this time and appears comfortable. I did consider admission and spoke to the hospitalist on-call regarding the patient's presentation today and recent inpatient workup and we found no reason to admit the patient because he has had recent GI consultation and recommendation was for outpatient GI follow-up. Colonoscopy can be scheduled as an outpatient and there is no indication for any emergent colonoscopy at this time because the patient does not have active bleeding now and his hemoglobin has been stable. Patient's vital signs are normal and he is without complaints of pain. Furthermore, patient states he does have the address and phone number to the die cast patternmaker who saw him as an inpatient and has a follow-up appointment scheduled. Differential diagnoses considered, included but not limited to acute coronary syndrome, pulmonary embolism, aortic dissection, abdominal aortic aneurysm, sepsis, stroke, meningitis, encephalitis, pneumonia, appendicitis, cholecystitis, bowel obstruction, pyelonephritis, nephrolithiasis, cystitis, as well as metabolic, hematologic, and electrolyte abnormalities. As well as abscess, cellulitis, fractures, and dislocations. Patient feels much better at this time, and vital signs are normal, symptoms rosado ve improved. I did give strict instructions to return to the ED if symptoms continue or worsen, patient will otherwise follow-up with primary care physician. Patient understood instructions and agreed to plan. Disclaimer: Inadvertent spelling and grammatical errors are likely due to EHR/dictation software use and do not reflect on the overall quality of patient care. Also, please note that the electronic time recorded on this note does not necessarily reflect the actual time of the patient encounter. Departure Diagnosis: Primary Impression: Internal hemorrhoids Additional Impressions: Chronic pain Chronic pain type: chronic pain syndrome Qualified Codes: G89.4 - Chronic pain syndrome Rectal bleed Condition: CHICA Granados MD Oct 21, 2018 03:14
[2018-10-21] MEDS ORDERED: SOD CHLORIDE 0.9% 500 ML IV ONE (03:30)
[2018-10-21] MEDS ORDERED: KETOROLAC 15 MG INJ IV ONE (03:30)
[2018-10-21] MEDS ORDERED: DOCU-144 PO (04:35)
[2018-10-21 05:21] VITALS: BP 155/87; PULSE 88; RESP 25
== END 2018-10-21 05:24 | disposition home or self-care (01) ==
LOC: E/R 02:13 → CANBEDREQ 04:34 → E/R 05:24
DX: K64.8 Other hemorrhoids (principal); R40.2142 Coma scale, eyes open, spontaneous, at arrival to emergency department; G89.4 Chronic pain syndrome; K62.5 Hemorrhage of anus and rectum; I10 Essential (primary) hypertension; I25.2 Old myocardial infarction; F17.210 Nicotine dependence, cigarettes, uncomplicated; E66.9 Obesity, unspecified; J44.9 Chronic obstructive pulmonary disease, unspecified; R40.2362 Coma scale, best motor response, obeys commands, at arrival to emergency department; R40.2252 Coma scale, best verbal response, oriented, at arrival to emergency department; Z68.39 Body mass index [BMI] 39.0-39.9, adult; Z79.01 Long term (current) use of anticoagulants
CPT/HCPCS: 36415; 80053; 83690; 84484; 85025; 85610; 85730; 86850; 86900; 86901; 96361; 96374; J1885; J7040; Z7502; 93005

== ENCOUNTER 2018-12-05 10:33 | Inpatient (IN) | payer MEDICAID, OTHER ==
[~2018-12-05] VITALS: Ht 177.8 cm; Wt 130.5 kg
[~2018-12-05 10:33] MED LIST changes: +DOCU-144 PO; -HYDR-3609 PO
[2018-12-05] MEDS ORDERED: morphine 4 MG/ML VIAL IV STA ×2 (10:59→20:42)
[2018-12-05] MEDS ORDERED: SOD CHLORIDE 0.9% 1,000 ML IV STA (10:59)
[2018-12-05] MEDS ORDERED: ONDANSETRON 4 MG INJ IV STA (10:59)
[2018-12-05] MEDS ORDERED: HYDROmorphONE 2 MG/ML SYG IV STA ×3 (11:24→13:23)
[2018-12-05] MEDS ORDERED: SOD CHLORIDE 0.9% 100 ML ONE (11:39)
[2018-12-05] MEDS ORDERED: IOHEXOL 100 ML ONE (11:39)
[2018-12-05] MEDS ORDERED: ACETAMINOPHEN 325 MG TAB PO PRN (12:30)
[2018-12-05] MEDS ORDERED: ONDANSETRON 4 MG INJ IV PRN ×2 (12:30→14:00)
--- NOTE | 2018-12-05 13:22 | ERD ---
ER Documentation Chief Complaint Chief Complaint right upper quad pain/cp starting this morning, sob HPI Patient is a 53-year-old male with hypertension and history of previous pulmonary embolism who presents with abdominal pain. The patient is right upper quadrant abdominal pain and right-sided chest pain. He said that it feels different and more painful than previous pulmonary embolism. It started at 4 AM with a cough. He said "I felt like it was a ripping or tearing". The patient tried a lidocaine rub to his chest without help. Upon review of old medical records the patient has multiple visits to the ER for various. His primary doctor is Dr. Tomas. ROS All systems reviewed and are negative except as per history of present illness. Medications Home Meds Active Scripts Docusate Sodium* (Colace*) 100 Mg Capsule, 100 MG PO BID PRN for CONSTIPATION, #30 CAP Prov:CHICA GALDAMEZ MD 10/21/18 Fluticasone/Vilanterol (Breo Ellipta 200-25 Mcg INH) 1 Each Blst.w.dev, 1 INH INH DAILY, #1 BOTTLE 2 Refills Prov:LISA TABARES 09/26/18 Albuterol Sulfate* (Proair HFA*) 8.5 Gm Hfa.aer.ad, 2 PUFF INH Q4 PRN for COUGH, #1 INHALER Prov:CHICA GALDAMEZ MD 09/17/18 Pantoprazole* (Pantoprazole*) 40 Mg Tablet.dr, 40 MG PO QAM for 30 Days, #30 TAB Prov:MARIELLE BRYSON MD 08/20/18 Gabapentin* (Gabapentin*) 300 Mg Capsule, 300 MG PO TID for 30 Days, #90 CAP Prov:MARIELLE BRYSON MD 08/20/18 Lisinopril* (Lisinopril*) 20 Mg Tablet, 40 MG PO DAILY for 30 Days, #60 TAB Prov:MARIELLE BRYSON MD 08/20/18 Amlodipine Besylate* (Amlodipine Besylate*) 5 Mg Tablet, 5 MG PO DAILY for 30 Days, #30 TAB Prov:MARIELLE BRYSON MD 08/20/18 Reported Medications Metoprolol Succinate* (Toprol XL*) 50 Mg Tab.er.24h, 50 MG PO DAILY, #30 TAB 09/22/18 Nicotine* (Nicotine* Patch) 7 mg/day Patch, 1 PATCH TD DAILY, PATCH 08/17/18 Buspirone Hcl* (Buspirone Hcl*) 5 Mg Tab, 7.5 MG PO BID, TAB 08/06/18 Isosorbide Mononitrate* (Isosorbide Mononitrate*) 30 Mg Tab.er.24h, 30 MG PO DAILY, TAB 08/06/18 Atorvastatin* (Atorvastatin*) 80 Mg Tablet, 80 MG PO QHS, #30 TAB 07/12/18 Citalopram Hydrobromide* (Citalopram Hydrobromide*) 40 Mg Tablet, 40 MG PO DAILY, #30 TAB 07/12/18 Discontinued Scripts Gknzlirvywn-W-Npuiuxsjty Hb* (Guaifenesin* DM Syrup) 120 Ml Syrup, 5 ML PO Q4H PRN for cough, #1 BOTTLE Prov:LISA TABARES S. 09/26/18 Benzocaine/Menthol (SORE THROAT LOZENGE) 1 Each Lozenge, 1 LOZENGE [place] Q1H PRN for COUGH, #1 BOTTLE 2 Refills Prov:LISA TABARES S. 09/26/18 Apixaban* (Eliquis*) 5 Mg Tablet, 5 MG PO BID, #60 TAB Prov:JAYNA GILES MD 08/12/18 Allergies Allergies: Coded Allergies: No Known Allergies (Verified Allergy, Unknown, 12/05/18) PMhx/Soc History of Surgery: No Anesthesia Reaction: No (unknown) Hx Neurological Disorder: No Hx Respiratory Disorders: Yes (PE in the past) Hx Cardiac Disorders: Yes (HTN, [place]) Hx Psychiatric Problems: No Hx Miscellaneous Medical Probl: No Hx Alcohol Use: No Hx Substance Use: No Hx Tobacco Use: No Smoking Status: Never smoker FmHx Family History: No coronary disease Physical Exam Vitals Vital Signs Date Temp Pulse Resp B/P (MAP) Pulse Ox O2 O2 Flow FiO2 Time Delivery Rate 12/05/18 98.2 114 18 164/111 94 10:48 (128) Physical Exam Const: Moderate distress secondary to pain Head: Atraumatic Eyes: Normal Conjunctiva ENT: Normal External Ears, Nose and Mouth. Neck: Full range of motion. No meningismus. Resp: Clear to auscultation bilaterally Cardio: Regular rate and rhythm, no murmurs Abd: Right upper quadrant and epigastric tenderness to palpation with guarding Skin: No petechiae or rashes Back: No midline or flank tenderness Ext: No cyanosis, or edema Neur: Awake and alert Psych: Normal Mood and Affect Result Diagram: 12/05/18 1102 12/05/18 1102 Results 24 hrs Laboratory Tests Test 12/05/18 11:02 12/05/18 11:30 White Blood Count 9.2 10^3/ul Red Blood Count 5.15 10^6/ul Hemoglobin 15.1 g/dl Hematocrit 45.7 % Mean Corpuscular Volume 88.7 fl Mean Corpuscular Hemoglobin 29.3 pg Mean Corpuscular Hemoglobin Concent 33.0 g/dl Red Cell Distribution Width 13.1 % Platelet Count 276 10^3/UL Mean Platelet Volume 8.8 fl Immature Granulocytes % 0.400 % Neutrophils % 64.1 % Lymphocytes % 20.1 % Monocytes % 10.9 % Eosinophils % 4.0 % Basophils % 0.5 % Nucleated Red Blood Cells % 0.0 /100WBC Immature Granulocytes # 0.040 10^3/ul Neutrophils # 5.9 10^3/ul Lymphocytes # 1.9 10^3/ul Monocytes # 1.0 10^3/ul Eosinophils # 0.4 10^3/ul Basophils # 0.1 10^3/ul Nucleated Red Blood Cells # 0.0 10^3/ul Prothrombin Time 11.2 Sec Prothrombin Time Ratio 0.9 INR International Normalized Ratio 0.80 Activated Partial Thromboplast Time 27.5 Sec Sodium Level 144 mmol/L Potassium Level 3.8 mmol/L Chloride Level 104 mmol/L Carbon Dioxide Level 27 mmol/L Anion Gap 13 Blood Urea Nitrogen 14 mg/dl Creatinine 0.81 mg/dl Est Glomerular Filtrat Rate mL/min > 60 mL/min Glucose Level 127 mg/dl Calcium Level 9.1 mg/dl Total Bilirubin 0.3 mg/dl Direct Bilirubin 0.00 mg/dl Indirect Bilirubin 0.3 mg/dl Aspartate Amino Transf (AST/SGOT) 24 IU/L Alanine Aminotransferase (ALT/SGPT) 29 IU/L Alkaline Phosphatase 92 IU/L Troponin I < 0.012 ng/ml Total Protein 7.6 g/dl Albumin 4.3 g/dl Globulin 3.30 g/dl Albumin/Globulin Ratio 1.30 Lipase 1867 U/L Urine Color YELLOW Urine Clarity CLEAR Urine pH 5.0 Urine Specific [place] 1.017 Urine Ketones NEGATIVE mg/dL Urine Nitrite NEGATIVE mg/dL Urine Bilirubin NEGATIVE mg/dL Urine Urobilinogen NEGATIVE mg/dL Urine Leukocyte Esterase NEGATIVE Xena/ul Urine Hemoglobin NEGATIVE mg/dL Urine Glucose NEGATIVE mg/dL Urine Total Protein NEGATIVE mg/dl Current Medications Medications Dose Sig/Vicenta Start Time Status Last (Trade) Ordered Route PRN Stop Time Admin Dose Reason Admin Sodium 1,000 ml @ Q1H STAT 12/05/18 DC 12/05/18 Chloride 1,000 mls/hr IV 10:59 11:09 12/05/18 11:58 Morphine 4 mg ONCE STAT 12/05/18 DC 12/05/18 Sulfate IV 10:59 11:08 (morphine) 12/05/18 11:00 Ondansetron 4 mg ONCE STAT 12/05/18 DC 12/05/18 HCl (Zofran IV 10:59 11:08 Inj) 12/05/18 11:00 1 mg ONCE STAT 12/05/18 DC 12/05/18 Hydromorphone IV 11:24 11:28 HCl 12/05/18 11:25 (Dilaudid) Sodium 100 ml @ ud STK-MED 12/05/18 DC Chloride ONCE .ROUTE 11:39 12/05/18 11:40 Iohexol 100 ml @ ud STK-MED 12/05/18 DC ONCE .ROUTE 11:39 12/05/18 11:40 1 mg ONCE STAT 12/05/18 DC 12/05/18 Hydromorphone IV 12:07 12:18 HCl 12/05/18 12:08 (Dilaudid) Ondansetron 4 mg BRIDGE ORDER 12/05/18 HCl (Zofran PRN IV 12:30 Inj) NAUSEA/VOMITI 12/06/18 12:29 NG 650 mg ER BRIDGE 12/05/18 Acetaminophen PRN PO 12:30 (Tylenol .MILD PAIN 12/06/18 12:29 Tab) 1-3 OR TEMP Procedures/MDM CT chest read by radiology shows no pulmonary embolism. Ultrasound of the gallbladder read by radiology. EKG read by me: Rate/Rhythm: Regular rate and rhythm at a normal rate Intervals: Normal Impression: No evidence of ischemia or arrhythmia Patient is a 53-year-old male who presents with abdominal pain. He was found to have acute pancreatitis with a lipase of greater than 1800. The patient denies alcohol use. Ultrasound shows no signs of cholecystitis. CT scan shows no pulmonary embolism. The patient will be admitted to the care of the panel team to a medical surgical bed. The patient was given multiple doses of morphine and Dilaudid for pain. Patient was given normal saline 1 L bolus as well. Departure Diagnosis: Primary Impression: Pancreatitis Chronicity: acute Pancreatitis type: unspecified pancreatitis type Acute pancreatitis complication: unspecified Qualified Codes: K85.90 - Acute pancreatitis without necrosis or infection, unspecified Condition: Fair TIANA VEGA MD Dec 05, 2018 13:22
[2018-12-05] MEDS ORDERED: ACETAMINOPHEN 650 MG SUPP PR PRN (14:00)
[2018-12-05] MEDS ORDERED: NACL 0.9% 3 ML SYG IV SCH (14:00)
--- NOTE | 2018-12-05 14:06 | HP ---
Date/Time of Note Date/Time of Note DATE: 12/05/18 TIME: 13:59 Assessment/Plan VTE Prophylaxis SCD applied (from Nsg): Yes Pharmacological prophylaxis: NA/contraindicated Pharm contraindication: low risk/ambulating Lines/Catheters IV Catheter Type (from Nrsg): Saline Lock Assessment/Plan Hospital Course SUBJECTIVE: Seen and evaluated patient in ER room 12. He is moaning with pain 10 out of 10 right upper/lower quadrant. Patient already received Dilaudid and morphine in ER. OBJECTIVE: Vital signs-see below PHYSICAL EXAM: Constitutional: Extremely anxious male, lying in bed, moaning with right upper abdominal pain 10 out of 10. Psych: Extremely anxious Head: atraumatic, normocephalic Eyes: nl conjunctiva, nl sclera ENMT: mucosa pink and moist, nl external ears & nose Neck: non-tender, supple Respiratory: clear to auscultation, normal air movement Cardiovascular: nl pulses, regular rate and rhythm Gastrointestinal: +Right upper quadrant. No rebound tenderness. Abdomen soft, bowel sounds active in all 4 quadrants. Musculoskeletal/extremities: nl extremities to inspection, motor strength equal bilaterally, no focal deficit. Normal pulses,no cyanosis, no edema. Neurological: Alert oriented 3,nl speech, nl strength Skin: nl turgor ASSESSMENT/PLAN: 53-year-old obese male with a history of alcohol use, tobacco use who quit 5 years ago, hyperlipidemia, hypertension, here with sudden onset of right upper abdominal pain, found to have acute pancreatitis. 1. Acute pancreatitis -Ultrasound negative for any biliary etiologies. Most likely causes underlying hyperlipidemia. -Bowel rest, IV fluids, pain control. -Repeat lipase in a.m. 2. Hyperlipidemia -We will resume statin when patient is medically stable for p.o. 3. Hypertension -Suboptimally controlled, likely induced by pain -We will give IV hydralazine as needed for SBP above 160 until patient is able to tolerate p.o. 4. Anxiety/panic disorders -PRN Ativan and will resume home medication when stable for p.o. 5. Obesity with BMI 41.3. -Weight reduction advised. Will obtain A1c and lipid panel in a.m. DVT prophylaxis: SCDs PUD prophylaxis: Pepcid CODE STATUS: Full code Diet: N.p.o. Rest of the management depend on hospital course. Approximately 60 m spent on this history and physical. Patient was seen in collaboration with . Result Diagram: 12/05/18 1102 12/05/18 1102 Results 24hrs Laboratory Tests Test 12/05/18 11:02 12/05/18 11:30 White Blood Count 9.2 # Red Blood Count 5.15 Hemoglobin 15.1 Hematocrit 45.7 Mean Corpuscular Volume 88.7 Mean Corpuscular Hemoglobin 29.3 Mean Corpuscular Hemoglobin Concent 33.0 Red Cell Distribution Width 13.1 Platelet Count 276 Mean Platelet Volume 8.8 Immature Granulocytes % 0.400 Neutrophils % 64.1 Lymphocytes % 20.1 Monocytes % 10.9 Eosinophils % 4.0 Basophils % 0.5 Nucleated Red Blood Cells % 0.0 Immature Granulocytes # 0.040 H Neutrophils # 5.9 Lymphocytes # 1.9 Monocytes # 1.0 H Eosinophils # 0.4 Basophils # 0.1 Nucleated Red Blood Cells # 0.0 Prothrombin Time 11.2 #L Prothrombin Time Ratio 0.9 INR International Normalized Ratio 0.80 Activated Partial Thromboplast Time 27.5 Sodium Level 144 Potassium Level 3.8 Chloride Level 104 Carbon Dioxide Level 27 Anion Gap 13 Blood Urea Nitrogen 14 Creatinine 0.81 Est Glomerular Filtrat Rate mL/min > 60 Glucose Level 127 Calcium Level 9.1 Total Bilirubin 0.3 Direct Bilirubin 0.00 Indirect Bilirubin 0.3 Aspartate Amino Transf (AST/SGOT) 24 Alanine Aminotransferase (ALT/SGPT) 29 Alkaline Phosphatase 92 Troponin I < 0.012 Total Protein 7.6 Albumin 4.3 Globulin 3.30 H Albumin/Globulin Ratio 1.30 Lipase 1867 H Urine Color YELLOW Urine Clarity CLEAR Urine pH 5.0 Urine Specific [place] 1.017 Urine Ketones NEGATIVE Urine Nitrite NEGATIVE Urine Bilirubin NEGATIVE Urine Urobilinogen NEGATIVE Urine Leukocyte Esterase NEGATIVE Urine Hemoglobin NEGATIVE Urine Glucose NEGATIVE Urine Total Protein NEGATIVE HPI/ROS Admit Date/Time Admit Date/Time Hx of Present Illness This is a 53-year-old male with a history of hypertension, smoking history who quit 5 years ago, anxiety disorders, former alcohol use, presented with sudden onset of right-sided upper abdominal pain. Patient denied nausea, vomiting, diarrhea, fever, chills, loss of consciousness, dizziness, upper or lower GI bleed episode, chest pain, palpitation, shortness of breath, numbness, tingling, loss of consciousness, speech difficulties, vision changes or other constitutional symptoms. In the emergency room, patient's initial labs noted for elevated lipase 1867. Imaging studies negative for gallstones. There was evidence of hepatomegaly with fatty infiltration of the liver.Patient had a blood pressure 164/111 in the emergency room. Patient was given IV Dilaudid, normal saline bolus and admitted for further evaluation. ROS A 12 point review of system was assessed and is negative other than what is mentioned in the HPI. PMH/Family/Social Past Medical History See HPI Medications Current Medications Ondansetron HCl (Zofran Inj) 4 mg BRIDGE ORDER PRN IV NAUSEA/VOMITING; Start 12/05/18 at 12:30; Stop 12/06/18 at 12:29 Acetaminophen (Tylenol Tab) 650 mg ER BRIDGE PRN PO .MILD PAIN 1-3 OR TEMP; Start 12/05/18 at 12:30; Stop 12/06/18 at 12:29 Coded Allergies: No Known Allergies (Verified Allergy, Unknown, 12/05/18) Past Surgical History None Past Surgical Hx: no surgical history, other Family History Significant Family History: no pertinent family hx Social History Former alcohol/smoking history. Denies any substance abuse history. Smoking Status: Never smoker Exam/Review of Systems Vital Signs Vitals Vital Signs Date Temp Pulse Resp B/P (MAP) Pulse Ox O2 O2 Flow FiO2 Time Delivery Rate 12/05/18 98.2 114 18 164/111 94 10:48 (128) RYLIE CRAIN NP Dec 05, 2018 14:05
[2018-12-05] MEDS ORDERED: hydrALAzine 20 MG INJ IV PRN (14:30)
[2018-12-05] MEDS ORDERED: DOCUSATE SODIUM 100 MG CAP PO PRN (14:30)
[2018-12-05] MEDS ORDERED: LORAZEPAM 2 MG INJ IV PRN (14:30)
[2018-12-05] MEDS: HYDROmorphONE 0.5 MG/0.5 ML SYG IV PRN ×3 (14:56→23:34)
[2018-12-05] MEDS: SOD CHLORIDE 0.9% 1,000 ML IV SCH ×2 (15:06→22:39)
[2018-12-05 16:40] VITALS: Ht 177.8 cm; Wt 130.5 kg
[2018-12-05 17:15] VITALS: PULSE 145
[2018-12-05 17:59] VITALS: BP 157/87; PULSE 157; RESP 22
[2018-12-05 20:00] VITALS: BP 179/89; PULSE 130; PULSE 132; RESP 21
[2018-12-05] MEDS: FAMOTIDINE 20 MG INJ IV SCH (20:54)
[2018-12-05] MEDS: KETOROLAC 30 MG INJ IV PRN (20:54)
[2018-12-05] MEDS: GABAPENTIN 300 MG CAP PO SCH (20:55)
[2018-12-05] MEDS: ATORVASTATIN 80 MG TAB PO SCH (20:55)
[2018-12-05 22:29] VITALS: BP 139/98; PULSE 112; RESP 18
[2018-12-05 23:00] VITALS: BP 130/79; PULSE 117; RESP 21
[2018-12-05] MEDS ORDERED: SODIUM CHLORIDE 0.9% 1L BAG IV* ONE (23:00)
[2018-12-06] VITALS (9 sets, daily range): BP systolic 119–143; BP diastolic 71–93; PULSE 84–118; RESP 19–21
[2018-12-06] MEDS ORDERED: HYDROmorphONE 0.5 MG/0.5 ML SYG IV STA (00:59)
[2018-12-06] MEDS: KETOROLAC 30 MG INJ IV PRN ×3 (04:01→23:26)
[2018-12-06] MEDS: HYDROmorphONE 0.5 MG/0.5 ML SYG IV PRN ×5 (04:01→21:03)
[2018-12-06] MEDS ORDERED: morphine 4 MG/ML VIAL IV STA (08:16)
[2018-12-06] MEDS: FAMOTIDINE 20 MG INJ IV SCH ×2 (08:30→20:19)
[2018-12-06] MEDS: BUSPIRONE 5 MG TAB PO SCH ×2 (08:31→20:19)
[2018-12-06] MEDS: LISINOPRIL 20 MG TAB PO SCH (08:31)
[2018-12-06] MEDS: ISOSORBIDE MONONITRATE(SR)30 MG TAB PO SCH (08:33)
[2018-12-06] MEDS: METOPROLOL (XL) 50 MG TAB PO SCH (08:34)
[2018-12-06] MEDS: GABAPENTIN 300 MG CAP PO SCH ×3 (08:34→20:19)
[2018-12-06] MEDS: CITALOPRAM 20 MG TAB PO SCH (08:34)
[2018-12-06] MEDS: AMLODIPINE 5 MG TAB PO SCH (08:34)
[2018-12-06] MEDS: NICOTINE (7 MG/24 HR) PATCH TRANSDERM SCH (08:35)
[2018-12-06] MEDS: FLUTICASONE/VILANTEROL 200-25 INH DEVICE INH SCH (08:44)
[2018-12-06] MEDS: SOD CHLORIDE 0.9% 1,000 ML IV SCH ×3 (09:53→16:56)
--- NOTE | 2018-12-06 10:26 | PN ---
Date/Time of Note Date/Time of Note DATE: 12/06/18 TIME: 10:24 Assessment/Plan VTE Prophylaxis Risk score (from Nsg)>0 risk: 3 SCD applied (from Ns): No SCD contraindicated: patient refusal Pharmacological prophylaxis: NA/contraindicated Pharm contraindication: low risk/ambulating Lines/Catheters IV Catheter Type (from Nrsg): Peripheral IV Assessment/Plan Hospital Course SUBJECTIVE: Today with improved pain status. Wanting to eat. OBJECTIVE: Vital signs-see below PHYSICAL EXAM: Constitutional: Extremely anxious male, lying in bed, moaning with right upper abdominal pain 10 out of 10. Psych: Extremely anxious Head: atraumatic, normocephalic Eyes: nl conjunctiva, nl sclera ENMT: mucosa pink and moist, nl external ears & nose Neck: non-tender, supple Respiratory: clear to auscultation, normal air movement Cardiovascular: nl pulses, regular rate and rhythm Gastrointestinal: +Right upper quadrant-improved. No rebound tenderness. Abdomen soft, bowel sounds active in all 4 quadrants. Musculoskeletal/extremities: nl extremities to inspection, motor strength equal bilaterally, no focal deficit. Normal pulses,no cyanosis, no edema. Neurological: Alert oriented 3,nl speech, nl strength Skin: nl turgor ASSESSMENT/PLAN: 53-year-old obese male with a history of alcohol use, tobacco use who quit 5 years ago, hyperlipidemia, hypertension, here with sudden onset of right upper abdominal pain, found to have acute pancreatitis. 1. Acute pancreatitis -Ultrasound negative for any biliary etiologies. Has elevated triglycerides-but no high enough to cause pancreatitis... -Symptoms resolving, lipase trended down. -Start diet today and monitor patient next 24 hours. Continue pain control 2. Hyperlipidemia -Resume statin -P panel noted 3. Hypertension -Now stable. Continue home medications 4. Anxiety/panic disorders -We will resume home medications 5. Obesity with BMI 41.3. -Weight reduction advised. 6. Prediabetes -Patient with A1c 6.5,and patient is not willing to take metformin at this time and wanted to do diet control first and will repeat his A1c with PCP. DVT prophylaxis: SCDs PUD prophylaxis: Pepcid CODE STATUS: Full code Diet: Clear diet Discussion: Continue current management. Start diet and monitor patient over the next 24 hours, if pain is controlled with stable lipase, MER[facility] planning in a.m. with outpatient PCP follow-up. Patient can be downgraded to medical surgical floor. Patient was seen in collaboration with . Result Diagram: 12/06/1852612/06/18526 Results 24hrs Laboratory Tests Test 12/05/18 11:02 12/05/18 11:30 12/05/18 15:27 12/06/18 05:27 White Blood Count 9.2 # 7.5 Red Blood Count 5.15 4.84 Hemoglobin 15.1 14.0 Hematocrit 45.7 43.4 Mean Corpuscular 88.7 89.7 Volume Mean Corpuscular 29.3 28.9 L Hemoglobin Mean Corpuscular 33.0 32.3 Hemoglobin Concent Red Cell 13.1 13.6 Distribution Width Platelet Count 276 292 Mean Platelet Volume 8.8 9.2 Immature 0.400 0.400 Granulocytes % Neutrophils % 64.1 62.7 Lymphocytes % 20.1 19.7 Monocytes % 10.9 11.5 H Eosinophils % 4.0 4.9 Basophils % 0.5 0.8 Nucleated Red Blood 0.0 0.0 Cells % Immature 0.040 H 0.030 Granulocytes # Neutrophils # 5.9 4.7 Lymphocytes # 1.9 1.5 Monocytes # 1.0 H 0.9 Eosinophils # 0.4 0.4 Basophils # 0.1 0.1 Nucleated Red Blood 0.0 0.0 Cells # Prothrombin Time 11.2 #L Prothrombin Time 0.9 Ratio INR International 0.80 Normalized Ratio Activated 27.5 Partial Thromboplast Time Sodium Level 144 143 Potassium Level 3.8 3.8 Chloride Level 104 105 Carbon Dioxide Level 27 28 Anion Gap 13 10 Blood Urea Nitrogen 14 12 Creatinine 0.81 0.82 Est Glomerular > 60 > 60 Filtrat Rate mL/min Glucose Level 127 112 Calcium Level 9.1 8.6 Total Bilirubin 0.3 0.6 Direct Bilirubin 0.00 0.00 Indirect Bilirubin 0.3 0.6 Aspartate Amino 24 25 Transf (AST/SGOT) Alanine 29 25 Aminotransferase (AL T/SGPT) Alkaline Phosphatase 92 79 Troponin I < 0.012 Total Protein 7.6 7.1 Albumin 4.3 4.0 Globulin 3.30 H 3.10 Albumin/Globulin 1.30 1.29 Ratio Lipase 1867 H 501 H Urine Color YELLOW Urine Clarity CLEAR Urine pH 5.0 Urine Specific 1.017 [place] Urine Ketones NEGATIVE Urine Nitrite NEGATIVE Urine Bilirubin NEGATIVE Urine Urobilinogen NEGATIVE Urine Leukocyte NEGATIVE Esterase Urine Hemoglobin NEGATIVE Urine Glucose NEGATIVE Urine Total Protein NEGATIVE Bedside Glucose 101 Hemoglobin A1c 6.5 H Phosphorus Level 3.9 Magnesium Level 2.1 Triglycerides Level 186 H Cholesterol Level 123 LDL Cholesterol, 54 Calculated HDL Cholesterol 32 Cholesterol/HDL 3.8 Ratio Amylase Level 151 H Thyroid Stimulating 1.500 Hormone (TSH) Exam/Review of Systems Exam Vitals Vital Signs Date Temp Pulse Resp B/P (MAP) Pulse Ox O2 O2 Flow FiO2 Time Delivery Rate 12/06/18 100 08:24 12/06/18 98.2 19 143/93 96 07:34 (110) 12/05/18 Room Air 22:29 Intake and Output 12/05/18 12/05/18 12/06/18 1414:59 22:59 06:59 IntakeIntake Total 1000 ml OutputOutput Total 1000 ml BalanceBalance 1000 ml -1000 ml Results Results 24hrs Laboratory Tests Test 12/05/18 11:02 12/05/18 11:30 12/05/18 15:27 12/06/18 05:27 White Blood Count 9.2 # 7.5 Red Blood Count 5.15 4.84 Hemoglobin 15.1 14.0 Hematocrit 45.7 43.4 Mean Corpuscular 88.7 89.7 Volume Mean Corpuscular 29.3 28.9 L Hemoglobin Mean Corpuscular 33.0 32.3 Hemoglobin Concent Red Cell 13.1 13.6 Distribution Width Platelet Count 276 292 Mean Platelet Volume 8.8 9.2 Immature 0.400 0.400 Granulocytes % Neutrophils % 64.1 62.7 Lymphocytes % 20.1 19.7 Monocytes % 10.9 11.5 H Eosinophils % 4.0 4.9 Basophils % 0.5 0.8 Nucleated Red Blood 0.0 0.0 Cells % Immature 0.040 H 0.030 Granulocytes # Neutrophils # 5.9 4.7 Lymphocytes # 1.9 1.5 Monocytes # 1.0 H 0.9 Eosinophils # 0.4 0.4 Basophils # 0.1 0.1 Nucleated Red Blood 0.0 0.0 Cells # Prothrombin Time 11.2 #L Prothrombin Time 0.9 Ratio INR International 0.80 Normalized Ratio Activated 27.5 Partial Thromboplast Time Sodium Level 144 143 Potassium Level 3.8 3.8 Chloride Level 104 105 Carbon Dioxide Level 27 28 Anion Gap 13 10 Blood Urea Nitrogen 14 12 Creatinine 0.81 0.82 Est Glomerular > 60 > 60 Filtrat Rate mL/min Glucose Level 127 112 Calcium Level 9.1 8.6 Total Bilirubin 0.3 0.6 Direct Bilirubin 0.00 0.00 Indirect Bilirubin 0.3 0.6 Aspartate Amino 24 25 Transf (AST/SGOT) Alanine 29 25 Aminotransferase (AL T/SGPT) Alkaline Phosphatase 92 79 Troponin I < 0.012 Total Protein 7.6 7.1 Albumin 4.3 4.0 Globulin 3.30 H 3.10 Albumin/Globulin 1.30 1.29 Ratio Lipase 1867 H 501 H Urine Color YELLOW Urine Clarity CLEAR Urine pH 5.0 Urine Specific 1.017 [place] Urine Ketones NEGATIVE Urine Nitrite NEGATIVE Urine Bilirubin NEGATIVE Urine Urobilinogen NEGATIVE Urine Leukocyte NEGATIVE Esterase Urine Hemoglobin NEGATIVE Urine Glucose NEGATIVE Urine Total Protein NEGATIVE Bedside Glucose 101 Hemoglobin A1c 6.5 H Phosphorus Level 3.9 Magnesium Level 2.1 Triglycerides Level 186 H Cholesterol Level 123 LDL Cholesterol, 54 Calculated HDL Cholesterol 32 Cholesterol/HDL 3.8 Ratio Amylase Level 151 H Thyroid Stimulating 1.500 Hormone (TSH) Medications Medication Current Medications Sodium Chloride 1,000 ml @ 100 mls/hr Q10H IV Last administered on 12/05/18at 22:39; Admin Dose 100 MLS/HR; Start 12/05/18 at 13:56 IV Flush (NS 3 ml) 3 ml PER PROTOCOL IV ; Start 12/05/18 at 14:00 Ondansetron HCl (Zofran Inj) 4 mg Q6H PRN IV NAUSEA/VOMITING; Start 12/05/18 at 14:00 Acetaminophen (Tylenol Supp) 650 mg Q6H PRN [place] .PAIN 1-3 OR TEMP; Start 12/05/18 at 14:00 Hydromorphone HCl (Dilaudid) 0.5 mg Q4H PRN IV .SEVERE PAIN 7-10 Last admi nistered on 12/06/18at 07:51; Admin Dose 0.5 MG; Start 12/05/18 at 14:00 Famotidine (Pepcid Iv) 20 mg Q12 IV Last administered on 12/06/18at 08:30; Admin Dose 20 MG; Start 12/05/18 at 21:00 Amlodipine Besylate (Norvasc) 5 mg DAILY PO Last administered on 12/06/18 08:34; Admin Dose 5 MG; Start 12/06/18 at 09:00 Atorvastatin Calcium (Lipitor) 80 mg QHS PO Last administered on 12/05/18 20:55; Admin Dose 80 MG; Start 12/05/18 at 21:00 Citalopram Hydrobromide (Celexa) 40 mg DAILY PO Last administered on 12/06/18 08:34; Admin Dose 40 MG; Start 12/06/18 at 09:00 Docusate Sodium (Colace) 100 mg BID PRN PO CONSTIPATION Last administered on 12/06/18 08:31; Admin Dose 100 MG; Start 12/05/18 at 14:30 Fluticasone/ Vilanterol (Breo Ellipta 200-25 Mcg Inh) 1 inh DAILY INH Last administered on 12/06/18 08:44; Admin Dose 1 INH; Start 12/06/18 at 09:00 Gabapentin (Neurontin) 300 mg TID PO Last administered on 12/06/18 08:34; Admin Dose 300 MG; Start 12/05/18 at 21:00 Isosorbide Mononitrate (Imdur) 30 mg DAILY PO Last administered on 12/06/18 08:33; Admin Dose 30 MG; Start 12/06/18 at 09:00 Lisinopril (Zestril) 40 mg DAILY PO Last administered on 12/06/18 08:31; Admin Dose 40 MG; Start 12/06/18 at 09:00 Metoprolol Succinate (Toprol Xl) 50 mg DAILY PO Last administered on 12/06/18 08:34; Admin Dose 50 MG; Start 12/06/18 at 09:00 Nicotine (Nicoderm 7 Mg/ 24 Hr) 1 patch DAILY TRANSDERM Last administered on 12/06/18 08:35; Admin Dose 1 PATCH; Start 12/06/18 at 09:00 Buspirone HCl (Buspar) 7.5 mg BID PO Last administered on 12/06/18 08:31; Admin Dose 7.5 MG; Start 12/06/18 at 09:00 Hydralazine HCl (Apresoline) 10 mg Q6H PRN IV sbp>160 Last administered on 12/05/18 15:16; Admin Dose 10 MG; Start 12/05/18 at 14:30 Lorazepam (Ativan) 0.5 mg Q8H PRN IV anxiety Last administered on 12/05/18at 14:37; Admin Dose 0.5 MG; Start 12/05/18 at 14:30 Ketorolac Tromethamine (Toradol) 30 mg Q6H PRN IV PAIN LEVEL 1-3 Last administered on 12/06/18at 04:01; Admin Dose 30 MG; Start 12/05/18 at 21:00; Stop 12/08/18 at 20:59 RYLIE CRAIN NP Dec 06, 2018 10:26
[2018-12-06] MEDS: ATORVASTATIN 80 MG TAB PO SCH (20:18)
[2018-12-07 00:22] VITALS: BP 119/97; PULSE 92; RESP 20
[2018-12-07] MEDS: HYDROmorphONE 0.5 MG/0.5 ML SYG IV PRN ×4 (01:15→12:59)
[2018-12-07] MEDS: SOD CHLORIDE 0.9% 1,000 ML IV SCH (03:20)
[2018-12-07 04:00] VITALS: BP 153/76; PULSE 78; RESP 20
[2018-12-07 04:39] VITALS: BP 138/85
[2018-12-07 08:09] VITALS: BP 172/113; PULSE 83; RESP 22
[2018-12-07] MEDS: FAMOTIDINE 20 MG INJ IV SCH (08:53)
[2018-12-07] MEDS: BUSPIRONE 5 MG TAB PO SCH (08:53)
[2018-12-07] MEDS: CITALOPRAM 20 MG TAB PO SCH (08:53)
[2018-12-07] MEDS: NICOTINE (7 MG/24 HR) PATCH TRANSDERM SCH (08:53)
[2018-12-07] MEDS: AMLODIPINE 5 MG TAB PO SCH (08:54)
[2018-12-07] MEDS: LISINOPRIL 20 MG TAB PO SCH (08:54)
[2018-12-07] MEDS: GABAPENTIN 300 MG CAP PO SCH ×2 (08:54→12:59)
[2018-12-07] MEDS: METOPROLOL (XL) 50 MG TAB PO SCH (08:54)
[2018-12-07] MEDS: ISOSORBIDE MONONITRATE(SR)30 MG TAB PO SCH (08:54)
[2018-12-07] MEDS: FLUTICASONE/VILANTEROL 200-25 INH DEVICE INH SCH (08:55)
--- NOTE | 2018-12-07 10:09 | PDOCDIS ---
Discharge Instructions CONDITION [id number] Patient Condition: [id number] Stable HOME CARE INSTRUCTIONS: [id number] Your diet recommendation is: [id number] Carbohydrate controlled/low fat/low cholesterol diet. FOLLOW UP/APPOINTMENTS Follow-up Plan Follow-up with primary care physician in 1 week RYLIE CRAIN NP Dec 07, 2018 10:09
--- NOTE | 2018-12-07 10:20 | DS ---
Date/Time of Note Date/Time of Note DATE: 12/07/18 TIME: 10:18 Discharge Summary Admission/Discharge Info Admit Date/Time Dec 05, 2018 at 12:26 Discharge Date/Time Discharge Diagnosis 1. Acute pancreatitis, likely idiopathic. Resolved 2. Hyperlipidemia 3. Hypertension 4. Anxiety/panic disorders 5. Obesity with BMI 41.3. 6. Prediabetes Patient Condition: Stable Procedures 12/05/2018. Right upper quadrant ultrasound. IMPRESSION: Hepatomegaly with fatty infiltration of the liver. No evidence of gallstones. Pancreas, portal vein and CBD were not visualized. Hx of Present Illness This is a 53-year-old male with a history of hypertension, smoking history who quit 5 years ago, anxiety disorders, former alcohol use, presented with sudden onset of right-sided upper abdominal pain. Patient denied nausea, vomiting, diarrhea, fever, chills, loss of consciousness, dizziness, upper or lower GI bleed episode, chest pain, palpitation, shortness of breath, numbness, tingling, loss of consciousness, speech difficulties, vision changes or other constitutional symptoms. In the emergency room, patient's initial labs noted for elevated lipase 1867. Imaging studies negative for gallstones. There was evidence of hepatomegaly with fatty infiltration of the liver.Patient had a blood pressure 164/111 in the emergency room. Patient was given IV Dilaudid, normal saline bolus and admitted for further evaluation. Hospital Course 53-year-old obese male with a history of alcohol use, tobacco use who quit 5 years ago, hyperlipidemia, hypertension, here with sudden onset of right upper abdominal pain, found to have acute pancreatitis. Patient's Ultrasound negative for any biliary etiologies. He had elevated triglycerides-but no high enough to cause pancreatitis... At this time, etiology of pancreatitis remained unclear/idiopathic. Patient was managed with bowel rest, IV fluids and pain control. Patient did well. Pancreatitis resolved. Lipase trended down, abdominal pain resolved. Patient was able to tolerate diet and activities well. Patient was comorbidities managed per medical records. Patient had an A1c 6.5, however he was not receptive to initiate metformin with underlying obesity with BMI 41.3. He was repeatedly counseled on weight reduction, diet changes for underlying prediabetes, obesity and dyslipidemia. Patient verbalized instructions. At this time, patient with clinical and laboratory findings of resolution of pancreatitis, he does not require to be monitored inpatient and is stable for outpatient follow-up with about instructions. Approximately 60 minutes was spent on coordinating the discharge on this patient. Patient was seen in collaboration with Dr. Cunningham. Home Meds Active Scripts Docusate Sodium* (Colace*) 100 Mg Capsule, 100 MG PO BID PRN for CONSTIPATION, #30 CAP Prov:CHICA GALDAMEZ MD 10/21/18 Fluticasone/Vilanterol (Breo Ellipta 200-25 Mcg INH) 1 Each Blst.w.dev, 1 INH INH DAILY, #1 BOTTLE 2 Refills Prov:LISA TABARES S. 09/26/18 Albuterol Sulfate* (Proair HFA*) 8.5 Gm Hfa.aer.ad, 2 PUFF INH Q4 PRN for COUGH, #1 INHALER Prov:CHICA GALDAMEZ MD 09/17/18 Pantoprazole* (Pantoprazole*) 40 Mg Tablet.dr, 40 MG PO QAM for 30 Days, #30 TAB Prov:MARIELLE BRYSON MD 08/20/18 Gabapentin* (Gabapentin*) 300 Mg Capsule, 300 MG PO TID for 30 Days, #90 CAP Prov:MARIELLE BRYSON MD 08/20/18 Lisinopril* (Lisinopril*) 20 Mg Tablet, 40 MG PO DAILY for 30 Days, #60 TAB Prov:MARIELLE BRYSON MD 08/20/18 Amlodipine Besylate* (Amlodipine Besylate*) 5 Mg Tablet, 5 MG PO DAILY for 30 Days, #30 TAB Prov:MARIELLE BRYSON MD 08/20/18 Reported Medications Metoprolol Succinate* (Toprol XL*) 50 Mg Tab.er.24h, 50 MG PO DAILY, #30 TAB 09/22/18 Nicotine* (Nicotine* Patch) 7 mg/day Patch, 1 PATCH TD DAILY, PATCH 08/17/18 Buspirone Hcl* (Buspirone Hcl*) 5 Mg Tab, 7.5 MG PO BID, TAB 08/06/18 Isosorbide Mononitrate* (Isosorbide Mononitrate*) 30 Mg Tab.er.24h, 30 MG PO DAILY, TAB 08/06/18 Atorvastatin* (Atorvastatin*) 80 Mg Tablet, 80 MG PO QHS, #30 TAB 07/12/18 Citalopram Hydrobromide* (Citalopram Hydrobromide*) 40 Mg Tablet, 40 MG PO DAILY, #30 TAB 07/12/18 Discontinued Scripts Nxcfybuempd-A-Cafrxfvmqp Hb* (Guaifenesin* DM Syrup) 120 Ml Syrup, 5 ML PO Q4H PRN for cough, #1 BOTTLE Prov:LISA TABARES S. 09/26/18 Benzocaine/Menthol (SORE THROAT LOZENGE) 1 Each Lozenge, 1 LOZENGE [place] Q1H PRN for COUGH, #1 BOTTLE 2 Refills Prov:LISA TABARES S. 09/26/18 Apixaban* (Eliquis*) 5 Mg Tablet, 5 MG PO BID, #60 TAB Prov:JAYNA GILES MD 08/12/18 Follow-up Plan Follow-up with primary care physician in 1 week Primary Care Provider Not On Staff Doctor Pending Labs Laboratory Tests Test 12/07/18 05:49 Lipase 398 U/L (23-300) RYLIE CRAIN NP Dec 07, 2018 10:20
[2018-12-07 12:19] VITALS: BP_SYST 138; BP_SYST 79; BP_DIAS 79; PULSE 77
== END 2018-12-07 14:00 | disposition home or self-care (01) | DRG 439 ==
LOC: E/R 10:33 → 6WM 12:26 → CANRESERV 15:16 → EDBEDREQSVC 15:24
PROVIDERS: ADMIT Hospitalist; ATTEND Hospitalist
DX: K85.00 Idiopathic acute pancreatitis without necrosis or infection (principal); Z68.41 Body mass index [BMI] 40.0-44.9, adult; I10 Essential (primary) hypertension; F41.9 Anxiety disorder, unspecified; E66.9 Obesity, unspecified; E78.5 Hyperlipidemia, unspecified; F41.0 Panic disorder [episodic paroxysmal anxiety]; R73.03 Prediabetes; I25.2 Old myocardial infarction; Z86.711 Personal history of pulmonary embolism; Z87.891 Personal history of nicotine dependence
CPT/HCPCS: 36415; 71275; 76705; 80053; 80061; 81003; 82150; 82962; 83036; 83690; 83735; 84100; 84443; 84484; 85025; 85610; 85730; 93005; 96374; 96375; 96376; J0360; J1170; J1885; J2060; J2270; J2405; J7030; Q9967

== ENCOUNTER 2018-12-15 07:04 | Emergency (ER) | payer MEDICAID ==
[~2018-12-15] VITALS: Wt 128.0 kg
[~2018-12-15 07:04] MED LIST changes: -APIX5TAB PO; -BENZ1LOZ4 MT; -GUAI120S26 PO; -NICO-544 TD
[2018-12-15] MEDS ORDERED: morphine 4 MG/ML VIAL IV STA (07:25)
[2018-12-15] MEDS ORDERED: ONDANSETRON 4 MG INJ IV STA (07:25)
[2018-12-15] MEDS ORDERED: LACTATED RINGER'S 1,000 ML IV STA (07:25)
--- NOTE | 2018-12-15 07:25 | ERD ---
ER Documentation Chief Complaint Chief Complaint RIGHT UPPER ABD PAIN X 2 DAYS DX WITH PANCREATITIS LAST WEEK HPI This is a 53-year-old male with a history of prior pancreatitis, diagnosed last week as idiopathic, who presents with recurrent right epigastric abdominal pain. He has not had a fever, endorses nausea vomiting. No chest pain or shortness of breath. Denies leg swelling. ROS All systems reviewed and are negative except as per history of present illness. Medications Home Meds Active Scripts Ondansetron (Ondansetron Odt) 8 Mg Tab.rapdis, 8 MG PO Q6H PRN for NAUSEA AND/OR VOMITING, #10 TAB Prov:CHICA VALERO MD 12/15/18 Hydrocodone/Acetaminophen ([place] 10-325 Tablet) 1 Each Tablet, 1 TAB PO Q6H PRN for PAIN, #7 TAB Prov:CHICA VALERO MD 12/15/18 Docusate Sodium* (Colace*) 100 Mg Capsule, 100 MG PO BID PRN for CONSTIPATION, #30 CAP Prov:CHICA GALDAMEZ MD 10/21/18 Fluticasone/Vilanterol (Breo Ellipta 200-25 Mcg INH) 1 Each Blst.w.dev, 1 INH INH DAILY, #1 BOTTLE 2 Refills Prov:LISA TABARES 09/26/18 Albuterol Sulfate* (Proair HFA*) 8.5 Gm Hfa.aer.ad, 2 PUFF INH Q4 PRN for COUGH, #1 INHALER Prov:CHICA GALDAMEZ MD 09/17/18 Pantoprazole* (Pantoprazole*) 40 Mg Tablet.dr, 40 MG PO QAM for 30 Days, #30 TAB Prov:MARIELLE BRYSON MD 08/20/18 Gabapentin* (Gabapentin*) 300 Mg Capsule, 300 MG PO TID for 30 Days, #90 CAP Prov:MARIELLE BRYSON MD 08/20/18 Lisinopril* (Lisinopril*) 20 Mg Tablet, 40 MG PO DAILY for 30 Days, #60 TAB Prov:MARIELLE BRYSON MD 08/20/18 Amlodipine Besylate* (Amlodipine Besylate*) 5 Mg Tablet, 5 MG PO DAILY for 30 Days, #30 TAB Prov:MARIELLE BRYSON MD 08/20/18 Reported Medications Metoprolol Succinate* (Toprol XL*) 50 Mg Tab.er.24h, 50 MG PO DAILY, #30 TAB 09/22/18 Buspirone Hcl* (Buspirone Hcl*) 5 Mg Tab, 7.5 MG PO BID, TAB 08/06/18 Isosorbide Mononitrate* (Isosorbide Mononitrate*) 30 Mg Tab.er.24h, 30 MG PO DAILY, TAB 08/06/18 Atorvastatin* (Atorvastatin*) 80 Mg Tablet, 80 MG PO QHS, #30 TAB 07/12/18 Citalopram Hydrobromide* (Citalopram Hydrobromide*) 40 Mg Tablet, 40 MG PO DAILY, #30 TAB 07/12/18 Allergies Allergies: Coded Allergies: No Known Allergies (Verified Allergy, Unknown, 12/05/18) PMhx/Soc History of Surgery: No Anesthesia Reaction: No Hx Neurological Disorder: No Hx Respiratory Disorders: Yes (PULMONARY EMBOLISM) Hx Cardiac Disorders: Yes (HTN/ [place]) Hx Psychiatric Problems: No Hx Miscellaneous Medical Probl: No Hx Alcohol Use: No Hx Substance Use: No Hx Tobacco Use: No Physical Exam Vitals Vital Signs Date Temp Pulse Resp B/P (MAP) Pulse Ox O2 O2 Flow FiO2 Time Delivery Rate 12/15/18 87 17 137/93 95 Room Air 09:16 (108) 12/15/18 104 21 137/92 96 Room Air 07:42 (107) 12/15/18 98.1 117 18 182/97 99 07:12 (125) Physical Exam Const: Well-appearing, nontoxic male appears stated age Head: Atraumatic Eyes: Normal Conjunctiva ENT: Normal External Ears, Nose and Mouth. Neck: Full range of motion. No meningismus. Resp: Clear to auscultation bilaterally Cardio: Regular rate and rhythm, no murmurs Abd: Soft, non tender, obese. Normal bowel sounds Skin: No petechiae or rashes Back: No midline or flank tenderness Ext: No cyanosis, or edema Neur: Awake and alert Psych: Normal Mood and Affect Result Diagram: 12/15/18 0740 12/15/18 0740 Results 24 hrs Laboratory Tests Test 12/15/18 07:40 12/15/18 10:00 12/15/18 10:04 White Blood Count 8.8 10^3/ul Red Blood Count 5.36 10^6/ul Hemoglobin 15.6 g/dl Hematocrit 47.6 % Mean Corpuscular Volume 88.8 fl Mean Corpuscular Hemoglobin 29.1 pg Mean Corpuscular 32.8 g/dl Hemoglobin Concent Red Cell Distribution Width 13.2 % Platelet Count 339 10^3/UL Mean Platelet Volume 8.8 fl Immature Granulocytes % 0.500 % Neutrophils % 66.1 % Lymphocytes % 19.1 % Monocytes % 9.9 % Eosinophils % 3.7 % Basophils % 0.7 % Nucleated Red Blood Cells % 0.0 /100WBC Immature Granulocytes # 0.040 10^3/ul Neutrophils # 5.8 10^3/ul Lymphocytes # 1.7 10^3/ul Monocytes # 0.9 10^3/ul Eosinophils # 0.3 10^3/ul Basophils # 0.1 10^3/ul Nucleated Red Blood Cells # 0.0 10^3/ul Sodium Level 144 mmol/L Potassium Level 3.9 mmol/L Chloride Level 105 mmol/L Carbon Dioxide Level 27 mmol/L Anion Gap 12 Blood Urea Nitrogen 12 mg/dl Creatinine 0.86 mg/dl Est Glomerular Filtrat > 60 mL/min Rate mL/min Glucose Level 126 mg/dl Calcium Level 8.6 mg/dl Total Bilirubin 0.3 mg/dl Direct Bilirubin 0.00 mg/dl Indirect Bilirubin 0.3 mg/dl Aspartate Amino Transf (AST/SGOT) 21 IU/L Alanine 26 IU/L Aminotransferase (ALT/SGPT) Alkaline Phosphatase 91 IU/L Total Protein 7.1 g/dl Albumin 4.1 g/dl Globulin 3.00 g/dl Albumin/Globulin Ratio 1.36 Lipase 74 U/L Urine Color YELLOW Urine Clarity CLEAR Urine pH 6.0 Urine Specific [place] 1.013 Urine Ketones NEGATIVE mg/dL Urine Nitrite NEGATIVE mg/dL Urine Bilirubin NEGATIVE mg/dL Urine Urobilinogen NEGATIVE mg/dL Urine Leukocyte Esterase NEGATIVE Xena/ul Urine Hemoglobin NEGATIVE mg/dL Urine Glucose NEGATIVE mg/dL Urine Total Protein NEGATIVE mg/dl Bedside Urine pH (LAB) 6.0 Bedside Urine Protein (LAB) Negative Bedside Urine Glucose (UA) Negative Bedside Urine Ketones (LAB) Negative Bedside Urine Blood Negative Bedside Urine Nitrite (LAB) Negative Bedside Urine Leukocyte Esterase Negative (L Current Medications Medications Dose Sig/Vicenta Start Time Status Last (Trade) Ordered Route PRN Stop Time Admin Dose Reason Admin Lactated 1,000 ml @ Q1H STAT 12/15/18 DC 12/15/18 Ringer's 1,000 mls/hr IV 07:25 12/15/18 08:06 08:24 Morphine 4 mg ONCE STAT 12/15/18 DC 12/15/18 Sulfate IV 07:25 12/15/18 08:06 (morphine) 07:27 Ondansetron 4 mg ONCE STAT 12/15/18 DC 12/15/18 HCl (Zofran IV 07:25 12/15/18 08:06 Inj) 07:27 0.5 mg ONCE STAT 12/15/18 DC 12/15/18 Hydromorphone IV 07:52 12/15/18 08:07 HCl 07:53 (Dilaudid) Procedures/MDM This is a 53-year-old male presents for evaluation of abdominal pain. Exam reveals no peritoneal signs, his labs were overall unremarkable. Patient with no urinary symptoms, and clinically no symptoms of UTI or cystitis. Patient is otherwise stable for discharge home, strict return precautions were given for any fever, chest pain, shortness of breath or any worsening symptoms, at discharge patient with no acute distress. CBC: no e/o of systemic infection or severe anemia CMP: no e/o severe acidosis, alkalosis, renal failure, diabetic ketoacidosis, liver disease Lipase: no e/o pancreatitis PT/INR: normal coagulation Urine: no e/o acute infection or hematuria IMPRESSION: 1. Ground-glass opacities in the lingula and the lower lobes may represent subsegmental atelectasis, although infectious/inflammatory process cannot be ruled out. 2. Diffuse hepatic steatosis. 3. Nonobstructive lower pole left renal calculus. No hydronephrosis. 4. Mild wall thickening of the urinary bladder. Although this could relate to urinary bladder outlet obstruction from prostatomegaly, correlation with urinalysis is recommended to rule out cystitis. EKG: Rate/Rhythm: Normal Sinus Rhythm QRS, ST, T-waves: No changes consistent w/ acute ischemia Impression: No evidence of ischemia or arrhythmia Departure Diagnosis: Primary Impression: Abdominal pain Abdominal location: unspecified location Qualified Codes: R10.9 - Unspecified abdominal pain Condition: Stable CHICA VALERO MD Dec 15, 2018 07:25
[2018-12-15] MEDS ORDERED: HYDROmorphONE 0.5 MG/0.5 ML SYG IV STA (07:52)
[2018-12-15] MEDS ORDERED: ONDA8TAB14 PO (10:12)
[2018-12-15] MEDS ORDERED: HYDR-3980 PO (10:12)
[2018-12-15 10:25] VITALS: BP 149/99; PULSE 84; RESP 16
== END 2018-12-15 10:28 | disposition home or self-care (01) ==
LOC: E/R 07:04
DX: R10.11 Right upper quadrant pain (principal); I10 Essential (primary) hypertension; I25.2 Old myocardial infarction
CPT/HCPCS: 36415; 74176; 80053; 81003; 83690; 85025; 93005; 96374; 96375; J1170; J2270; J2405; J7120; Z7502

== ENCOUNTER 2019-02-11 19:51 | Observation (INO) | payer SELFPAY ==
[~2019-02-11] VITALS: Ht 175.3 cm; Wt 132.6 kg
[~2019-02-11 19:51] MED LIST changes: +HYDR-3980 PO; +ONDA8TAB14 PO
[2019-02-11] MEDS ORDERED: morphine 4 MG/ML VIAL IV STA (20:13)
[2019-02-11] MEDS ORDERED: ASPIRIN 81 MG TAB PO STA (20:13)
[2019-02-11] MEDS ORDERED: ONDANSETRON 4 MG INJ IV STA (20:13)
[2019-02-11] MEDS ORDERED: NITROGLYCERIN 2% 1 GM OINT PKT TD STA (20:13)
[2019-02-11] MEDS ORDERED: SOD CHLORIDE 0.9% 1,000 ML IV STA (20:13)
[2019-02-11] MEDS ORDERED: NITROGLYCERIN (SL) 0.4 MG TAB SL PRN ×2 (20:30→22:00)
[2019-02-11] MEDS ORDERED: HYDROmorphONE 2 MG/ML SYG IV STA (20:42)
[2019-02-11] MEDS ORDERED: IOHEXOL 100 ML ONE (20:53)
[2019-02-11] MEDS ORDERED: SOD CHLORIDE 0.9% 100 ML ONE (20:53)
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
[2019-02-11] MEDS ORDERED: HYDROCODONE/APAP (5/325) TAB PO PRN (22:00)
[2019-02-11] MEDS ORDERED: ONDANSETRON 4 MG INJ IV PRN (22:00)
[2019-02-11] MEDS ORDERED: DOCUSATE SODIUM 100 MG CAP PO PRN (22:00)
[2019-02-11] MEDS ORDERED: ACETAMINOPHEN 325 MG TAB PO PRN (22:00)
[2019-02-11] MEDS ORDERED: NACL 0.9% 3 ML SYG IV SCH (22:00)
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
[2019-02-11] MEDS: HYDROCODONE/APAP (5/325) TAB PO PRN (23:13)
[2019-02-11] MEDS: SOD CHLORIDE 0.9% 1,000 ML IV SCH (23:15)
[2019-02-12] VITALS (9 sets, daily range): BP systolic 127–142; BP diastolic 71–89; PULSE 88–122; RESP 18–20; Ht 175.3 cm; Wt 132.6 kg
[2019-02-12] MEDS: morphine 4 MG/ML VIAL IV PRN ×5 (01:14→22:38)
[2019-02-12] MEDS: HYDROCODONE/APAP (5/325) TAB PO PRN ×3 (02:57→23:39)
[2019-02-12] MEDS: METOPROLOL (XL) 50 MG TAB PO SCH (08:31)
[2019-02-12] MEDS: CITALOPRAM 20 MG TAB PO SCH (08:31)
[2019-02-12] MEDS: ISOSORBIDE MONONITRATE(SR)30 MG TAB PO SCH (08:32)
[2019-02-12] MEDS: GABAPENTIN 300 MG CAP PO SCH ×2 (08:32→12:14)
[2019-02-12] MEDS: BUSPIRONE 5 MG TAB PO SCH ×2 (08:32→20:17)
[2019-02-12] MEDS: AMLODIPINE 5 MG TAB PO SCH (08:33)
[2019-02-12] MEDS: PANTOPRAZOLE (EC) 40 MG TAB PO SCH (08:33)
[2019-02-12] MEDS: HEPARIN 5,000 UNIT/1 ML VIAL SC SCH ×2 (08:38→20:32)
[2019-02-12] MEDS: LISINOPRIL 20 MG TAB PO SCH (08:39)
[2019-02-12] MEDS: FLUTICASONE/VILANTEROL 200-25 INH DEVICE INH SCH (08:44)
[2019-02-12] MEDS: SOD CHLORIDE 0.9% 1,000 ML IV SCH ×2 (10:14→17:56)
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
[2019-02-12] MEDS ORDERED: GLUCOSE GEL 15 GRAM TUBE BUCCAL PRN (13:00)
[2019-02-12] MEDS ORDERED: DEXTROSE 50% 50 ML SYRINGE IV PRN ×2 (13:00)
[2019-02-12] MEDS ORDERED: GLUCOSE GEL 15 GRAM TUBE PO PRN ×2 (13:00)
[2019-02-12] MEDS ORDERED: GLUCAGON 1 MG INJ IM PRN (13:00)
[2019-02-12] MEDS ORDERED: ALBUTEROL/IPRATROPIUM (NEB) 3 ML AMP HHN PRN (13:00)
[2019-02-12] MEDS: ONDANSETRON 4 MG INJ IV PRN ×2 (13:06→20:23)
[2019-02-12] MEDS: NICOTINE (14 MG/24 HR) PATCH TRANSDERM SCH (13:54)
[2019-02-12] MEDS: GUAIFENESIN/DM (SR) TAB PO SCH ×2 (14:09→20:16)
[2019-02-12] MEDS: INSULIN ASPART [NOVOLOG] 3 ML PEN SC SCH ×2 (17:37→21:00)
[2019-02-12] MEDS ORDERED: INSULIN GLARGINE [LANTus] (100 UNITS/ML) SYG SC SCH (20:00)
[2019-02-12] MEDS: ACETAMINOPHEN 325 MG TAB PO PRN (20:15)
[2019-02-12] MEDS ORDERED: ATORVASTATIN 80 MG TAB PO SCH (21:00)
[2019-02-13] VITALS: BP 132/79; PULSE 80; PULSE 88; PULSE 89; RESP 18
[2019-02-13] MEDS ORDERED: ACCU-CHEK XX SCH (02:00)
[2019-02-13] MEDS: morphine 4 MG/ML VIAL IV PRN ×2 (02:50→06:57)
[2019-02-13 02:55] VITALS: PULSE 81
[2019-02-13] MEDS: SOD CHLORIDE 0.9% 1,000 ML IV SCH (03:41)
[2019-02-13 04:00] VITALS: BP 138/90; PULSE 82; PULSE 88; RESP 18
--- NOTE | 2019-02-13 06:46 | CONS ---
Assessment/Plan Assessment/Plan Assessment/Plan (Daily) History of pancreatitis No indication at this time for aggressive pain control Morbid obesity with a recent major weight gain Anxiety syndrome Hypertension Hyperlipidemia Long talk with patient concerning his anxiety syndrome his massive weight gain and the potential morbidity mortality associated with another bout of pancreatitis and/or another pulmonary embolus. At this time withhold any opi oids Consultation Date/Type/Reason Admit Date/Time Date/Time of Note DATE: 02/13/19 TIME: 06:43 Hx of Present Illness 53-year-old morbidly obese male who is a history of anxiety syndrome, past medical history of pulmonary embolus and a recent history of gaining approximately 60 pounds within the last couple of months. Patient also has a history of hypertension dyslipidemia.. 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 Patient states that he has very little abdominal discomfort at this point but still complains of chest pain when he takes a deep breath and coughs. He also states he has not had this pain before it does not radiate he has no palpitations associated with a non-syncopal Past Medical History Medical History: high cholesterol, hypertension, pancreatitis, other (Obesity) Home Meds Active Scripts Ondansetron (Ondansetron Odt) 8 Mg Tab.rapdis, 8 MG PO Q6H PRN for NAUSEA AND/OR VOMITING, #10 TAB Prov:CHICA VALERO MD 12/15/18 Hydrocodone/Acetaminophen (Tell 10-325 Tablet) 1 Each Tablet, 1 TAB PO Q6H PRN for PAIN, #7 TAB Prov:CHICA VALERO MD 12/15/18 Docusate Sodium* (Colace*) 100 Mg Capsule, 100 MG PO BID PRN for CONSTIPATION, #30 CAP Prov:CHICA GALDAMEZ MD 10/21/18 Fluticasone/Vilanterol (Breo Ellipta 200-25 Mcg INH) 1 Each Blst.w.dev, 1 INH INH DAILY, #1 BOTTLE 2 Refills Prov:LISA TABARES 09/26/18 Albuterol Sulfate* (Proair HFA*) 8.5 Gm Hfa.aer.ad, 2 PUFF INH Q4 PRN for COUGH, #1 INHALER Prov:CHICA GALDAMEZ MD 09/17/18 Pantoprazole* (Pantoprazole*) 40 Mg Tablet.dr, 40 MG PO QAM for 30 Days, #30 TAB Prov:MARIELLE BRYSON MD 08/20/18 Gabapentin* (Gabapentin*) 300 Mg Capsule, 300 MG PO TID for 30 Days, #90 CAP Prov:MARIELLE BRYSON MD 08/20/18 Lisinopril* (Lisinopril*) 20 Mg Tablet, 40 MG PO DAILY for 30 Days, #60 TAB Prov:MARIELLE BRYSON MD 08/20/18 Amlodipine Besylate* (Amlodipine Besylate*) 5 Mg Tablet, 5 MG PO DAILY for 30 Days, #30 TAB Prov:MARIELLE BRYSON MD 08/20/18 Reported Medications Metoprolol Succinate* (Toprol XL*) 50 Mg Tab.er.24h, 50 MG PO DAILY, #30 TAB 09/22/18 Buspirone Hcl* (Buspirone Hcl*) 5 Mg Tab, 7.5 MG PO BID, TAB 08/06/18 Isosorbide Mononitrate* (Isosorbide Mononitrate*) 30 Mg Tab.er.24h, 30 MG PO DAILY, TAB 08/06/18 Atorvastatin* (Atorvastatin*) 80 Mg Tablet, 80 MG PO QHS, #30 TAB 07/12/18 Citalopram Hydrobromide* (Citalopram Hydrobromide*) 40 Mg Tablet, 40 MG PO DAILY, #30 TAB 07/12/18 Medications Current Medications Nitroglycerin (Nitroglycerin (Sl Tab) 0.4 Mg) 1 tab Q5M UP TO 3 DOSES PRN SL .CHEST PAIN; Start 02/11/19 at 20:30 Sodium Chloride 1,000 ml @ 100 mls/hr Q10H IV Last administered on 02/12/19at 10:14; Admin Dose 100 MLS/HR; Start 02/11/19 at 21:56 IV Flush (NS 3 ml) 3 ml PER PROTOCOL IV ; Start 02/11/19 at 22:00 Ondansetron HCl (Zofran Inj) 4 mg Q6H PRN IV NAUSEA/VOMITING Last administered on 02/12/19at 20:23; Admin Dose 4 MG; Start 02/11/19 at 22:00 Nitroglycerin (Nitroglycerin (Sl Tab) 0.4 Mg) 1 tab Q5M PRN SL .CHEST PAIN; Start 02/11/19 at 22:00 Acetaminophen (Tylenol Tab) 650 mg Q6H PRN PO .PAIN 1-3 OR TEMP Last administered on 02/12/19 20:15; Admin Dose 650 MG; Start 02/11/19 at 22:00 Acetaminophen/ Hydrocodone Bitart (Tell (5/325)) 1 tab Q6H PRN PO .PAIN 4-6; Start 02/11/19 at 22:00 Acetaminophen/ Hydrocodone Bitart (Tell (5/325)) 2 tab Q6H PRN PO .PAIN 7-10 Last administered on 02/12/19 23:39; Admin Dose 2 TAB; Start 02/11/19 at 22:00 Heparin Sodium (Porcine) (Heparin (5000 Units/1ml)) 5,000 unit Q12 SC Last administered on 02/12/19 20:32; Admin Dose 5,000 UNIT; Start 02/12/19 at 09:00 Amlodipine Besylate (Norvasc) 5 mg DAILY PO Last administered on 02/12/19 08:33; Admin Dose 5 MG; Start 02/12/19 at 09:00 Atorvastatin Calcium (Lipitor) 80 mg QHS PO Last administered on 02/12/19 20:15; Admin Dose 80 MG; Start 02/12/19 at 21:00 Buspirone HCl (Buspar) 7.5 mg BID PO Last administered on 02/12/19 20:17; Admin Dose 7.5 MG; Start 02/12/19 at 09:00 Citalopram Hydrobromide (Celexa) 40 mg DAILY PO Last administered on 02/12/19 08:31; Admin Dose 40 MG; Start 02/12/19 at 09:00 Docusate Sodium (Colace) 100 mg BID PRN PO CONSTIPATION; Start 02/11/19 at 22:00 Fluticasone/ Vilanterol (Breo Ellipta 200-25 Mcg Inh) 1 inh DAILY INH Last administered on 02/12/19 08:44; Admin Dose 1 INH; Start 02/12/19 at 09:00 Gabapentin (Neurontin) 300 mg TID PO Last administered on 02/12/19 12:14; Admin Dose 300 MG; Start 02/12/19 at 09:00; Status Hold Isosorbide Mononitrate (Imdur) 30 mg DAILY PO Last administered on 02/12/19 08:32; Admin Dose 30 MG; Start 02/12/19 at 09:00 Lisinopril (Zestril) 40 mg DAILY PO ; Start 02/12/19 at 09:00 Metoprolol Succinate (Toprol Xl) 50 mg DAILY PO Last administered on 02/12/19 08:31; Admin Dose 50 MG; Start 02/12/19 at 09:00 Pantoprazole (Protonix Tab) 40 mg QAM PO Last administered on 02/12/19 08:33; Admin Dose 40 MG; Start 02/12/19 at 09:00 Morphine Sulfate (morphine) 3 mg Q4H PRN IV SEVERE PAIN LEVEL 7-10 Last administered on 02/13/19 02:50; Admin Dose 3 MG; Start 02/12/19 at 01:00 Nicotine (Nicoderm 14 Mg/ 24hr) 1 patch DAILY TRANSDERM Last administered on 02/12/19 13:54; Admin Dose 1 PATCH; Start 02/12/19 at 13:00 Albuterol/ Ipratropium (Duoneb) 3 ml Q4H RESP THERAPY PRN HHN SHORTNESS OF BREATH; Start 02/12/19 at 13:00 Guaifenesin/ Dextromethorphan (Mucinex Dm) 1 tab BID PO Last administered on 02/12/19 20:16; Admin Dose 1 TAB; Start 02/12/19 at 13:00 Diagnostic Test (Pha) (Accu-Chek) 1 ea 02 XX ; Start 02/13/19 at 02:00 Insulin Glargine (Lantus) 20 units DAILY@2000 SC Last administered on 02/12/19 20:32; Admin Dose 20 UNITS; Start 02/12/19 at 20:00 Insulin Aspart (Novolog Insulin Pen) NOVOLOG *MILD* ALGORITHM WITH MEALS BEDTIME SC ; Start 02/12/19 at 17:55 Miscellaneous Information 1 ea NOTE XX ; Start 02/12/19 at 13:00 Glucose (Glutose) 15 gm Q15M PRN PO DECREASED GLUCOSE; Start 02/12/19 at 13:00 Glucose (Glutose) 22.5 gm Q15M PRN PO DECREASED GLUCOSE; Start 02/12/19 at 13:00 Dextrose (D50w Syringe) 25 ml Q15M PRN IV DECREASED GLUCOSE; Start 02/12/19 at 13:00 Dextrose (D50w Syringe) 50 ml Q15M PRN IV DECREASED GLUCOSE; Start 02/12/19 at 13:00 Glucagon (Glucagen) 1 mg Q15M PRN IM DECREASED GLUCOSE; Start 02/12/19 at 13:00 Glucose (Glutose) 15 gm Q15M PRN BUCCAL DECREASED GLUCOSE; Start 02/12/19 at 13:00 Allergies: Coded Allergies: No Known Allergies (Verified Allergy, Unknown, 12/05/18) Past Surgical History Past Surgical Hx: no surgical history, other Family History Significant Family History: asthma Social History Alcohol Use: occasionally Smoking Status: Former smoker Drug Use: none Exam/Review of Systems Exam Vitals Vital Signs Date Temp Pulse Resp B/P (MAP) Pulse Ox O2 O2 Flow FiO2 Time Delivery Rate 02/13/19 88 04:00 02/13/19 97.7 18 138/90 96 04:00 (106) 02/13/19 30 02:55 02/13/19 2.0 01:04 02/12/19 Nasal 23:30 Cannula Intake and Output 02/12/19 02/12/19 02/13/19 1515:00 23:00 07:00 IntakeIntake Total 2500 ml 900 ml OutputOutput Total 1100 ml BalanceBalance 2500 ml -200 ml Constitutional: obese Psych: anxiety Head: normocephalic, atraumatic; No lacerations, No hematomas, No other Eyes: nl conjunctiva, EOMI, nl lids, nl sclera, PERRL; No icteric, No fundi, disc, No other ENMT: nl external ears & nose, nl lips & teeth, nl nasal mucosa & septum; No mucosa pink and moist, No intubated, No tympanic membranes, No other Neck: No supple, No non-tender, No jvd, No bruits, No masses, No thyromegaly, No nuchal rigidity, No other Respiratory: No clear to auscultation, No normal air movement, No congested cough, No crackles/rales, No diminished breath sounds, No intercostal retra ction, No labored breathing, No respirations, No tactile fremitus, No wheezing, No other Cardiovascular: No regular rate and rhythm, No nl pulses, No bruits, No diastolic murmur, No edema, No gallop, No irregular rhythm, No jugular venous distention (JVD), No murmurs/extra sounds, No rub, No systolic murmur, No S3, No S4, No other Gastrointestinal: No soft, No nl liver, spleen, No non-tender, No ascites, No bowel sounds, No distended, No firm, No hepatomegaly, No mass, No rebound or guarding, No splenomegaly, No surgical scars, No tender, No other Musculoskeletal: No nl extremities to inspection, No nl gait and stance, No joint tenderness, No muscle tone, No muscle weakness, No range of motion, No spine non-tender, No swelling, No other Extremities: No normal pulses, No calf tenderness, No cyanosis, No clubbing, No edema, No pitting pedal edema, No palpable cord, No tenderness, No other Neurological: No DIRECTOR NURSING SERVICE II-XII intact, No nl mental status, No nl speech, No nl strength, No confused, No DTR's symmetric, No focal weakness, No lethargic, No numbness, No reflexes, No unresponsive, No other Results Result Diagram: 02/12/19 0627 02/12/19 0627 Results 24hrs Laboratory Tests Test 02/12/19 06:58 02/12/19 07:53 02/12/19 12:09 02/12/19 17:31 Bedside Glucose 113 112 120 133 Creatine Kinase 160 Creatine Kinase Index 1.4 Creatinine Kinase MB 2.16 (Mass) Troponin I < 0.012 Test 02/12/19 20:20 Bedside Glucose 125 Medications Medication Current Medications Nitroglycerin (Nitroglycerin (Sl Tab) 0.4 Mg) 1 tab Q5M UP TO 3 DOSES PRN SL .CHEST PAIN; Start 02/11/19 at 20:30 Sodium Chloride 1,000 ml @ 100 mls/hr Q10H IV Last administered on 02/12/19at 10:14; Admin Dose 100 MLS/HR; Start 02/11/19 at 21:56 IV Flush (NS 3 ml) 3 ml PER PROTOCOL IV ; Start 02/11/19 at 22:00 Ondansetron HCl (Zofran Inj) 4 mg Q6H PRN IV NAUSEA/VOMITING Last administered on 02/12/19 20:23; Admin Dose 4 MG; Start 02/11/19 at 22:00 Nitroglycerin (Nitroglycerin (Sl Tab) 0.4 Mg) 1 tab Q5M PRN SL .CHEST PAIN; Start 02/11/19 at 22:00 Acetaminophen (Tylenol Tab) 650 mg Q6H PRN PO .PAIN 1-3 OR TEMP Last administered on 02/12/19 20:15; Admin Dose 650 MG; Start 02/11/19 at 22:00 Acetaminophen/ Hydrocodone Bitart (Tell (5/325)) 1 tab Q6H PRN PO .PAIN 4-6; Start 02/11/19 at 22:00 Acetaminophen/ Hydrocodone Bitart (Tell (5/325)) 2 tab Q6H PRN PO .PAIN 7-10 Last administered on 02/12/19 23:39; Admin Dose 2 TAB; Start 02/11/19 at 22:00 Heparin Sodium (Porcine) (Heparin (5000 Units/1ml)) 5,000 unit Q12 SC Last administered on 02/12/19 20:32; Admin Dose 5,000 UNIT; Start 02/12/19 at 09:00 Amlodipine Besylate (Norvasc) 5 mg DAILY PO Last administered on 02/12/19 08:33; Admin Dose 5 MG; Start 02/12/19 at 09:00 Atorvastatin Calcium (Lipitor) 80 mg QHS PO Last administered on 02/12/19 20:15; Admin Dose 80 MG; Start 02/12/19 at 21:00 Buspirone HCl (Buspar) 7.5 mg BID PO Last administered on 02/12/19 20:17; Admin Dose 7.5 MG; Start 02/12/19 at 09:00 Citalopram Hydrobromide (Celexa) 40 mg DAILY PO Last administered on 02/12/19 08:31; Admin Dose 40 MG; Start 02/12/19 at 09:00 Docusate Sodium (Colace) 100 mg BID PRN PO CONSTIPATION; Start 02/11/19 at 22:00 Fluticasone/ Vilanterol (Breo Ellipta 200-25 Mcg Inh) 1 inh DAILY INH Last administered on 02/12/19 08:44; Admin Dose 1 INH; Start 02/12/19 at 09:00 Gabapentin (Neurontin) 300 mg TID PO Last administered on 02/12/19 12:14; Admin Dose 300 MG; Start 02/12/19 at 09:00; Status Hold Isosorbide Mononitrate (Imdur) 30 mg DAILY PO Last administered on 02/12/19 08:32; Admin Dose 30 MG; Start 02/12/19 at 09:00 Lisinopril (Zestril) 40 mg DAILY PO ; Start 02/12/19 at 09:00 Metoprolol Succinate (Toprol Xl) 50 mg DAILY PO Last administered on 02/12/19 08:31; Admin Dose 50 MG; Start 02/12/19 at 09:00 Pantoprazole (Protonix Tab) 40 mg QAM PO Last administered on 02/12/19 08:33; Admin Dose 40 MG; Start 02/12/19 at 09:00 Morphine Sulfate (morphine) 3 mg Q4H PRN IV SEVERE PAIN LEVEL 7-10 Last admi nistered on 02/13/19 02:50; Admin Dose 3 MG; Start 02/12/19 at 01:00 Nicotine (Nicoderm 14 Mg/ 24hr) 1 patch DAILY TRANSDERM Last administered on 02/12/19 13:54; Admin Dose 1 PATCH; Start 02/12/19 at 13:00 Albuterol/ Ipratropium (Duoneb) 3 ml Q4H RESP THERAPY PRN HHN SHORTNESS OF BREATH; Start 02/12/19 at 13:00 Guaifenesin/ Dextromethorphan (Mucinex Dm) 1 tab BID PO Last administered on 02/12/19 20:16; Admin Dose 1 TAB; Start 02/12/19 at 13:00 Diagnostic Test (Pha) (Accu-Chek) 1 ea 02 XX ; Start 02/13/19 at 02:00 Insulin Glargine (Lantus) 20 units DAILY@2000 SC Last administered on 02/12/19 20:32; Admin Dose 20 UNITS; Start 02/12/19 at 20:00 Insulin Aspart (Novolog Insulin Pen) NOVOLOG *MILD* ALGORITHM WITH MEALS BEDTIME SC ; Start 02/12/19 at 17:55 Miscellaneous Information 1 ea NOTE XX ; Start 02/12/19 at 13:00 Glucose (Glutose) 15 gm Q15M PRN PO DECREASED GLUCOSE; Start 02/12/19 at 13:00 Glucose (Glutose) 22.5 gm Q15M PRN PO DECREASED GLUCOSE; Start 02/12/19 at 13:00 Dextrose (D50w Syringe) 25 ml Q15M PRN IV DECREASED GLUCOSE; Start 02/12/19 at 13:00 Dextrose (D50w Syringe) 50 ml Q15M PRN IV DECREASED GLUCOSE; Start 02/12/19 at 13:00 Glucagon (Glucagen) 1 mg Q15M PRN IM DECREASED GLUCOSE; Start 02/12/19 at 13:00 Glucose (Glutose) 15 gm Q15M PRN BUCCAL DECREASED GLUCOSE; Start 02/12/19 at 13:00 NORM SETH February 13, 2019 06:46
[2019-02-13] MEDS: INSULIN ASPART [NOVOLOG] 3 ML PEN SC SCH (07:41)
[2019-02-13 08:00] VITALS: PULSE 61; PULSE 91
[2019-02-13] MEDS: BUSPIRONE 5 MG TAB PO SCH (09:53)
[2019-02-13] MEDS: GUAIFENESIN/DM (SR) TAB PO SCH (09:53)
[2019-02-13] MEDS: ISOSORBIDE MONONITRATE(SR)30 MG TAB PO SCH (09:54)
[2019-02-13] MEDS: AMLODIPINE 5 MG TAB PO SCH (09:54)
[2019-02-13] MEDS: CITALOPRAM 20 MG TAB PO SCH (09:54)
[2019-02-13] MEDS: LISINOPRIL 20 MG TAB PO SCH (09:54)
[2019-02-13] MEDS: METOPROLOL (XL) 50 MG TAB PO SCH (09:54)
[2019-02-13] MEDS: PANTOPRAZOLE (EC) 40 MG TAB PO SCH (09:54)
[2019-02-13] MEDS: ACETAMINOPHEN 325 MG TAB PO PRN (09:55)
[2019-02-13] MEDS: NICOTINE (14 MG/24 HR) PATCH TRANSDERM SCH (09:56)
[2019-02-13] MEDS: ONDANSETRON 4 MG INJ IV PRN (09:56)
[2019-02-13] MEDS: FLUTICASONE/VILANTEROL 200-25 INH DEVICE INH SCH (09:56)
[2019-02-13] MEDS: HEPARIN 5,000 UNIT/1 ML VIAL SC SCH (09:59)
--- NOTE | 2019-02-13 11:05 | PDOCDIS ---
Discharge Instructions CONDITION [id number] Patient Condition: [id number] Stable HOME CARE INSTRUCTIONS: [id number] Your diet recommendation is: [id number] Carbohydrate controlled/low-cholesterol diet FOLLOW UP/APPOINTMENTS Follow-up Plan Follow-up with primary care physician in 1 week You have been diagnosed with diabetes. We have given instruction on lifestyle modification/diet changes, exercise/weight reduction to improve your blood sugar levels. We recommend you keeping appointment with primary care physician, repeat your hemoglobin A1c/diabetes check. You are being started on a new medication called metformin which you need to take 1 pill with breakfast and with one 4 cup of water. If this medicine give you stomach upset, nausea, vomiting, abdominal pain please talk to your primary care physician. You also need to use your home CPAP at night. We also recommend you following up with a lung specialist/community integration specialist for your sleep apnea follow-up. RYLIE CRAIN NP February 13, 2019 11:05
[2019-02-13] MEDS ORDERED: METF-849 PO (11:07)
--- NOTE | 2019-02-13 11:14 | DS ---
Date/Time of Note Date/Time of Note DATE: 02/13/19 TIME: 11:09 Discharge Summary Admission/Discharge Info Admit Date/Time February 11, 2019 at 21:48 Discharge Date/Time Discharge Diagnosis Syncope, vasovagal versus hypoglycemic event.. Chest pain, likely musculoskeletal 2/2 to cough.resolved DMII SANDOVAL,nocturnal cpap Dyslipidemia Obesity VAPE/Nicotine use Patient Condition: Stable Procedures 02/11/2019. Chest CT. IMPRESSION: 1. The pulmonary arteries are unremarkable. No pulmonary embolism. 2. The thoracic aorta is normal in caliber. No aneurysm or dissection. 3. No consolidative pulmonary infiltrates. RPTAT: [facility] Naheed Yates Physician Wheel Braider Date Time Electronically viewed and signed by Naheed Yates Physician Wheel Braider on 02/11/2019 21:29 [facility] [place]/ Hospital Course 53-yo morbidly obese male w/htn,PE,cad, neuropathy, depression, VAPE use, who had a syncopal episode while he was driving from [employer]... Patient was ruled out for acute cardiovascular/neurovascular events. There was no evidence of pulmonary embolism. He also reported vague chest discomfort likely secondary to nonproductive cough. Troponin and EKG negative for ACS. Patient did not have any further episode while he was in the hospital. Most likely, syncopal etiologies possible vasovagal versus hypoglycemic event. Patient was also diagnosed with a newly onset diabetes for which he was treated with insulin in-house with effective control of blood sugar. He was continued on nocturnal CPAP for underlying sleep apnea. Patient was counseled on compliance with home CPAP. He was continued on home medication for underlying comorbidities. Patient was given diabetic education, lifestyle modification for underlying obesity. He verbalized instructions. At this time, no further inpatient work-up indicated and patient is stable for discharge with outpatient follow-up. He was recommended to take metformin for blood sugar management. Approximately 60-minute was spent on coordinating the discharge on this patient. Patient was seen in collaboration with Dr. Cunningham. Home Meds Active Scripts Metformin* (Glucophage*) 500 Mg Tab, 500 MG PO WITH BREAKFAST, #30 TAB Prov:RYLIE CRAIN V. TINSEL MACHINE OPERATOR 02/13/19 Docusate Sodium* (Colace*) 100 Mg Capsule, 100 MG PO BID PRN for CONSTIPATION, #30 CAP Prov:CHICA GALDAMEZ MD 10/21/18 Fluticasone/Vilanterol (Breo Ellipta 200-25 Mcg INH) 1 Each Blst.w.dev, 1 INH INH DAILY, #1 BOTTLE 2 Refills Prov:LISA TABARES. 09/26/18 Albuterol Sulfate* (Proair HFA*) 8.5 Gm Hfa.aer.ad, 2 PUFF INH Q4 PRN for COUGH, #1 INHALER Prov:CHICA GALDAMEZ MD 09/17/18 Pantoprazole* (Pantoprazole*) 40 Mg Tablet.dr, 40 MG PO QAM for 30 Days, #30 TAB Prov:MARIELLE BRYSON MD 08/20/18 Gabapentin* (Gabapentin*) 300 Mg Capsule, 300 MG PO TID for 30 Days, #90 CAP Prov:MARIELLE BRYSON MD 08/20/18 Lisinopril* (Lisinopril*) 20 Mg Tablet, 40 MG PO DAILY for 30 Days, #60 TAB Prov:MARIELLE BRYSON MD 08/20/18 Amlodipine Besylate* (Amlodipine Besylate*) 5 Mg Tablet, 5 MG PO DAILY for 30 Days, #30 TAB Prov:MARIELLE BRYSON MD 08/20/18 Reported Medications Metoprolol Succinate* (Toprol XL*) 50 Mg Tab.er.24h, 50 MG PO DAILY, #30 TAB 09/22/18 Buspirone Hcl* (Buspirone Hcl*) 5 Mg Tab, 7.5 MG PO BID, TAB 08/06/18 Isosorbide Mononitrate* (Isosorbide Mononitrate*) 30 Mg Tab.er.24h, 30 MG PO DAILY, TAB 08/06/18 Atorvastatin* (Atorvastatin*) 80 Mg Tablet, 80 MG PO QHS, #30 TAB 07/12/18 Citalopram Hydrobromide* (Citalopram Hydrobromide*) 40 Mg Tablet, 40 MG PO DAILY, #30 TAB 07/12/18 Discontinued Scripts Ondansetron (Ondansetron Odt) 8 Mg Tab.rapdis, 8 MG PO Q6H PRN for NAUSEA AND/OR VOMITING, #10 TAB Prov:CHICA VALERO MD 12/15/18 Hydrocodone/Acetaminophen ([place] 10-325 Tablet) 1 Each Tablet, 1 TAB PO Q6H PRN for PAIN, #7 TAB Prov:CHICA VALERO MD 12/15/18 Follow-up Plan Follow-up with primary care physician in 1 week You have been diagnosed with diabetes. We have given instruction on lifestyle modification/diet changes, exercise/weight reduction to improve your blood sugar levels. We recommend you keeping appointment with primary care physician, repeat your hemoglobin A1c/diabetes check. You are being started on a new medication called metformin which you need to take 1 pill with breakfast and with one 4 cup of water. If this medicine give you stomach upset, nausea, vomiting, abdominal pain please talk to your primary care physician. You also need to use your home CPAP at night. We also recommend you following up with a lung specialist/parts cataloguer for your sleep apnea follow-up. Primary Care Provider Care Physician No Primary Pending Labs Laboratory Tests Test 02/12/19 12:09 02/12/19 17:31 02/12/19 20:20 02/13/19 07:27 Bedside 120 133 125 116 Glucose mg/dL (70-220) mg/dL (70-220) mg/dL (70-220) mg/dL (70-220) Test 02/13/19 07:28 Sodium Level 141 mmol/L (135-144 ) Potassium 4.0 Level mmol/L (3.5-5.1 ) Chloride Level 102 mmol/L (97-110) Carbon Dioxide 32 Level mmol/L (21-31) Anion Gap 7 (5-13) Blood Urea 12 mg/dl (7-20) Nitrogen Creatinine 0.73 mg/dl (0.61-1.2 4) Est Glomerular > 60 Filtrat mL/min (>60) Rate mL/min Glucose Level 118 mg/dl (70-220) Calcium Level 8.5 mg/dl (8.4-10.2 ) Microbiology Date/Time Source Procedure Growth Status 02/12/19 14:20 Nasopharyngeal Influenza Types A,B Direct EIA - Final Complete RYLIE CRAIN V. TINSEL MACHINE OPERATOR February 13, 2019 11:14
[2019-02-13 11:34] VITALS: BP 158/75; PULSE 71; RESP 20
== END 2019-02-13 12:05 | disposition home or self-care (01) ==
LOC: E/R 19:51 → TEL 21:48
PROVIDERS: ADMIT Internal Medicine; ATTEND Internal Medicine
DX: R55 Syncope and collapse (principal); R07.9 Chest pain, unspecified; I25.10 Atherosclerotic heart disease of native coronary artery without angina pectoris; I10 Essential (primary) hypertension; E78.5 Hyperlipidemia, unspecified; G47.33 Obstructive sleep apnea (adult) (pediatric); E66.9 Obesity, unspecified; Z68.41 Body mass index [BMI] 40.0-44.9, adult; F17.290 Nicotine dependence, other tobacco product, uncomplicated; Z86.711 Personal history of pulmonary embolism; Z79.4 Long term (current) use of insulin
CPT/HCPCS: 36415; 71045; 71275; 80048; 80053; 80061; 82550; 82553; 82962; 83036; 83690; 83735; 84443; 84484; 85025; 85610; 85730; 87400; 93005; 94660; 96374; 96375; 99285; G0378; J1170; J1644; J1815; J2270; J2405; J7030; Q9967